=== PATIENT | male | born 1950 | race Caucasian/White ===

== ENCOUNTER → 2016-11-12 | Outpatient (CLI) | payer BC ==
[~2016-11-12] MED LIST: ALLO100T PO; BNC/4025 PO; LPT/20 PO; MELO15TA4 PO
--- NOTE | 2016-11-12 16:25 | DIAGNOSTIC IMAGING REPORT ---
CHEST 2 VIEWS ROUTINE CLINICAL HISTORY: R05 [id number] dyspnea COMPARISON STUDY: 09/28/2015 FINDINGS: Mild stable cardiomegaly. Minimal chronic atelectatic change left base. Lungs are clear. Old right clavicular fracture considered healed IMPRESSION: Chronic change. No acute process. Electronically signed by: Sergey Pierce M.D. 11/12/2016 4:23 PM Dictated Date/Time: 11/12/2016 4:22 PM
== END | disposition home or self-care (01) ==
LOC: C.RAD1850 16:12
PROVIDERS: ATTEND Allergy & Immunology Allergy
DX: R05 Cough (principal)

== ENCOUNTER → 2017-06-29 | Outpatient (CLI) | payer BC ==
[2017-06-29 10:26] LABS: BASO % 0.3 %; BASO ABS # 0.02 K/uL (0-0.2); COMPLETE YES; EOS % 2.5 %; HEMATOCRIT 43.5 % (42-52); IG% 0.5 %; LYMPH % 24.2 %; LYMPH ABS # 1.55 K/uL (1.2-3.4); MEAN CORPUSCULAR HGB CONC 32.2 g/dl (32-36); MEAN PLATELET VOLUME 9.7 fL (7.4-10.4); MONO % 9.2 %; NEUT % 63.3 %; PLATELET COUNT 173 K/uL (130-400)
[2017-06-29 10:53] LABS: ESTIMATED AVERAGE GLUCOSE 128 mg/dl; HA1C FLAG Normal (Normal)
[2017-06-29 10:57] LABS: ALT/SGPT 35 U/L (12-78); BLOOD UREA NITROGEN 18 mg/dl (7-18); BUN/CREATININE RATIO 20.7 (10-20); CALCIUM 8.6 mg/dl (8.5-10.1); CARBON DIOXIDE 27 mmol/L (21-32); CHLORIDE 107 mmol/L (98-107); CHOLESTEROL 152 mg/dl (0-200); CREATININE 0.89 mg/dl (0.60-1.40); GLUCOSE 90 mg/dl (70-99); POTASSIUM 3.6 mmol/L (3.5-5.1); SODIUM 140 mmol/L (136-145); TRIGLYCERIDES 111 mg/dl (0-150); VERY LOW DENSITY LIPOPROT CALC 22 mg/dl
[2017-06-29 11:08] LABS: ALB/GLOB RATIO 0.9 (0.9-2); ALKALINE PHOSPHATASE 80 U/L (45-117); AST/SGOT 21 U/L (15-37); CHOLESTEROL/HDL RATIO 4.1; HDL CHOLESTEROL 37 mg/dl; LDL CHOLESTEROL CALCULATED 93 mg/dl; PROSTATE SPECIFIC ANTIGEN 0.814 ng/ml (0.000-4.000)
--- NOTE | 2017-07-06 13:10 | CODING QUERY MEDICAL NECESSITY ---
CQSUPPORTING DIAGNOSIS NEEDED A supporting diagnosis is required for the test/procedure performed on this patient in order for us to be reimbursed by the patient's insurance. Please provide a supporting diagnosis for the following test/procedure listed below next to the test name along with your signature. *If there is no additional diagnosis for this patient that would support the following test/procedure please document that below next to the test/procedure. Test(s)/Procedure(s) that require a supporting diagnosis: DOS 06/29/17 PROSTATE SPECIFIC TEST (PSA) Provider Signature: Date: Thank you Mayra Maddox Health Information Management Once completed, please kindly fax back to [phone] For questions please call [phone]
== END | disposition home or self-care (01) ==
LOC: C.LAB1850 07:57
PROVIDERS: ATTEND Internal Medicine Pulmonary Disease
DX: E78.5 Hyperlipidemia, unspecified (principal); I10 Essential (primary) hypertension; R73.9 Hyperglycemia, unspecified; Z12.5 Encounter for screening for malignant neoplasm of prostate

== ENCOUNTER → 2017-08-04 | Outpatient (CLI) | payer BC | END | disposition home or self-care (01) | LOC: C.PATHSPEC 17:45 | PROVIDERS: ATTEND Dermatology | DX: C44.329 Squamous cell carcinoma of skin of other parts of face (principal); L57.0 Actinic keratosis ==

== ENCOUNTER → 2018-03-14 | Day surgery (SDC) | payer OTHER, BC ==
[2018-03-11 09:51] VITALS: BMI 45.0
[~2018-03-14] VITALS: Ht 172.7 cm; Wt 132.3 kg
[~2018-03-14] MED LIST changes: -ALLO100T PO; +ALLO300T2 PO; +FLUO5CRE TOP; +IBUP-1050 PO; +LIDOCAINE HCL 2% 2 ML VIAL (20MG/ML) ONE; -LPT/20 PO; +LPT20 PO; -MELO15TA4 PO; +OMEG120013 PO; +PROPOFOL IV EMULSION 10 MG/ML 20 ML VIAL ONE; +RANI300T2 PO; +SODIUM CHLORIDE 0.9% 500ML 500 ML IV ONE
[2018-03-14 10:57] VITALS: Ht 172.7 cm; Wt 132.3 kg
--- NOTE | 2018-03-14 11:05 | Endo History and Physical ---
History & Physical Date of Service: March 14, 2018. Chief Complaint: SCREENING Referring Physician: DR. BAKER History of Present Illness screening Past Surgical History Hx Cardiac Surgery: No Hx Internal Defibrillator: No Hx Pacemaker: No Hx Abdominal Surgery: No Hx of Implantable Prosthesis: No Hx Cancer Surgery: Yes (SKIN CANCER REMOVED X2) Hx Thoracic Surgery: No Hx Orthopedic: Yes (RIGHT RCR) Hx Urinary Tract Surgery: No Social History Smoking Status: Former Smoker Hx Substance Use: No Hx Alcohol Use: No Allergies Coded Allergies: No Known Allergies (Unverified , 03/14/18) Current Medications Reported Home Medications Medications Dose Route/Sig Max Daily Dose Days Date Category Zantac (Ranitidine HCl) 300 Mg Tab 300 Mg PO QAM 03/11/18 Reported Advil (Ibuprofen) 200 Mg Tab 200 Mg PO DIRECTED PRN 03/11/18 Reported Efudex (Fluorouracil (Topical)) 5 % Cre 1 Appln TOP HS 14 03/11/18 Reported Fish Oil ([place]-3 Fatty Acids) 1,200 Mg Cap 1 Cap PO DAILY 03/11/18 Reported Zyloprim (Allopurinol) 300 Mg Tab 1 Tab PO DAILY 30 03/11/18 Reported Benicar Hct 40/25 (Olmesartan/Hctz) 1 Ea Tab 1 Tab PO DAILY 09/28/15 Reported Lipitor (Atorvastatin Calcium) 20 Mg Tab 20 Mg PO DAILY 09/28/15 Reported Vital Signs Weight (Kilograms): 132.27 Height (Feet): 5 Height (Inches): 8 Physical Exam General Appearance: WD/WN, no apparent distress Assessment and Plan colonoscopy today
--- NOTE | 2018-03-14 11:39 | Discharge Instructions ---
Endoscopy Patient Instructions Date / Procedure(s) Performed March 14, 2018. Colonoscopy Allergy Information Coded Allergies: No Known Allergies (Unverified , 03/14/18) Discharge Date / Findings March 14, 2018. diverticulosis Medication Instructions Restart Stopped Medication(s): OK to resume home medications as above Provider Instructions Activity Restrictions - No exercising or heavy lifting for 24 hours. - Do not drink alcohol the day of the procedure. - Do not drive a car or operate machinery until the day after the procedure. - Do not make any important decisions or sign important papers in 24 hours after the procedure. Following Day: - Return to full activity which may include returning to work/school. Diet Start your diet with liquids and light foods (jello, soup, juice, toast). Then eat your usual diet if not nauseated. Treatment For Common After Affects For mild abdominal pain, bloating, or excessive gas: - Rest - Eat lightly - Lie on right side Follow-Up Information Follow-up with DR. BAKER as scheduled Anesthesia Information What You Should Know You have had a procedure that required some medicine to reduce anxiety and discomfort. This treatment is called moderate sedation. After receiving the treatment, you may be sleepy, but you will be able to breathe on your own. The effects of the treatment may last for several hours. Follow these instructions along with Activity/Diet recommendations noted above: * Do NOT do anything where dizziness or clumsiness would be dangerous. * Rest quietly at home today, then you can be up and about tomorrow. * Have a responsible person stay with you the rest of today. * You may have had an I.V. today. If so, you may take the dressing off later today. Recommendations Call your doctor if: * Trouble breathing * Continuous vomiting for more than 24 hours * Temperature above 101 degrees * Severe abdominal pain or bloating * Pain not relieved by pain medicine ordered * There is increased drainage or redness from any incision * A large amount of rectal bleeding greater than 2-3 tablespoons. (If you had a polyp/s removed or have hemorrhoids, a small amount of blood - from the rectum is to be expected.) * You have any unanswered questions or concerns. IN THE EVENT OF A SERIOUS EMERGENCY, GO TO THE NEAREST EMERGENCY ROOM Your discharge instructions were prepared by provider Gissel Cox. Patient Instructions Signature Page Kehinde Wood Patient (or Guardian) Signature/Date: I have read and understand the instructions given to me by my caregivers. Caregiver/RN/Doctor Signature/Date: The above-named patient and/or guardian has received patient instructions on this date. + Original Patient Signature Page (only) stays with chart. Please make copy for patient.
[2018-03-14 12:10] VITALS: BP 171/92; PULSE 67; O2SAT 96
--- NOTE | 2018-03-14 12:17 | Anesthesiology Progress Note ---
Anesthesia Post Op Note Date & Time March 14, 2018 at 12:17 Vital Signs Pain Intensity: 0 Vital Signs Past 12 Hours Date Time Temp Pulse Resp B/P (MAP) Pulse Ox O2 Delivery O2 Flow Rate FiO2 03/14/18 12:10 67 24 171/92 (118) 96 Room Air 03/14/18 11:55 71 24 172/96 (121) 97 Room Air 03/14/18 11:40 72 24 179/86 (117) 96 Room Air 03/14/18 11:03 36.7 83 20 162/90 (114) 93 Room Air Notes Mental Status: alert / awake / arousable, participated in evaluation Pt Amnestic to Procedure: Yes Nausea / Vomiting: adequately controlled Pain: adequately controlled Airway Patency, RR, SpO2: stable & adequate BP & HR: stable & adequate Hydration State: stable & adequate Anesthetic Complications: no major complications apparent
--- NOTE | 2018-03-14 15:46 | GI REPORT ---
Patient Name: Kehinde Wood Procedure Date: 03/14/2018 11:17 AM Date of : 1950 Admit Type: Outpatient Age: 67 Gender: Male Attending MD: Gissel Cox DO Procedure: Colonoscopy Providers: Gissel Cox DO Referring MD: Naren Lucas John Solic Indications: Screening for colorectal malignant neoplasm Medicines: Propofol per Anesthesia Complications: No immediate complications. Estimated blood loss: None. Estimated Blood Loss: Estimated blood loss: none. Procedure: Pre-Anesthesia Assessment: - Prior to the procedure, a History and Physical was performed, and patient medications, allergies and sensitivities were reviewed. The patient's tolerance of previous anesthesia was reviewed. - The risks and benefits of the procedure and the sedation options and risks were discussed with the patient. All questions were answered and informed consent was obtained. - Patient identification and proposed procedure were verified prior to the procedure by the physician and the nurse. The procedure was verified in the pre-procedure area in the procedure room. - Mental Status Examination: alert and oriented. Airway Examination: normal oropharyngeal airway and neck mobility. Respiratory Examination: clear to auscultation. CV Examination: normal. Abdominal Examination: bowel sounds present, abdomen soft and non-tender, no masses or organomegaly noted. - ASA Grade Assessment: III - A patient with severe systemic disease. After I obtained informed consent, the scope was passed under direct vision. Throughout the procedure, the patient's blood pressure, pulse, and oxygen saturations were monitored continuously. The scope was introduced through the anus and advanced to the cecum, identified by appendiceal orifice and ileocecal valve. The colonoscopy was performed without difficulty. The patient tolerated the procedure well. The quality of the bowel preparation was good. Findings: The perianal and digital rectal examinations were normal. Pertinent negatives include normal sphincter tone and no palpable rectal lesions. Multiple small and large-mouthed diverticula were found in the sigmoid colon. The retroflexed view of the distal rectum and anal verge was normal and showed no anal or rectal abnormalities. Impression: - Diverticulosis in the sigmoid colon. - The distal rectum and anal verge are normal on retroflexion view. - No specimens collected. Recommendation: - Repeat colonoscopy in 10 years for screening purposes. - Return to referring physician as previously scheduled. - Discharge patient to home. Bill Estevez DO 03/14/2018 11:42:03 AM This report has been signed electronically. Note Initiated On: 03/14/2018 11:17 AM Number of Addenda: 0 I attest to the content of the Intraoperative Record and orders documented therein, exceptions below {[id number]}
== END | disposition home or self-care (01) ==
LOC: C.GI 10:34
PROVIDERS: ATTEND Internal Medicine
DX: Z12.11 Encounter for screening for malignant neoplasm of colon (principal); K57.30 Diverticulosis of large intestine without perforation or abscess without bleeding; Z87.891 Personal history of nicotine dependence; I10 Essential (primary) hypertension; K21.9 Gastro-esophageal reflux disease without esophagitis; E66.9 Obesity, unspecified

== ENCOUNTER 2020-12-20 20:56 | Inpatient (IN) ==
[2020-12-20] MEDS ORDERED: fentaNYL citrate 100 MCG/2 ML VIAL IV PRN (21:06)
[2020-12-20] MEDS ORDERED: PANTOprazole 40 MG in SYRINGE 0 ML IV ONE (21:06)
[2020-12-20] MEDS ORDERED: ONDANSETRON INJ 2 MG/ML 2 ML VIAL IV STA (21:06)
--- NOTE | 2020-12-20 21:21 | Emergency Department Note ---
Impression & Plan Acute pancreatitis, Abdominal pain, epigastric ED Provider Note NAME: MELLISA MORSE AGE: 70 SEX: M : 1950 ARRIVES VIA: Walk-In INFORMANT: Patient, ED PROVIDER(S): Mark Orozco DO CHIEF COMPLAINT: Chest pain HPI: The patient is a 70-year-old male who presented to the emergency department for an evaluation of chest pain. The patient describes chest pain which is in the lower chest in the epigastric region. He states that this pain began after eating this evening. He denies having any fevers or chills. He denies having any difficulty breathing or cough. He has had no exposure to COVID-19 as far as he knows. The pain has been constant since onset 1 hour ago. The patient states that he was at home when this occurred. The patient states the pain is been constant. The pain does not radiate to the back. The patient denies having any vomiting but does complain of nausea. The patient did not have any alcohol this evening. ROS: See above HPI for pertinent positives & negatives. A total of 10 systems reviewed and were otherwise negative. PAST MEDICAL HISTORY: See Below PAST SURGICAL HISTORY: See Below FAMILY HISTORY: See Below SOCIAL HISTORY: See Below HOME MEDICATIONS: See Below ALLERGIES: See Below VITALS: See Below PHYSICAL EXAMINATION: GENERAL: The patient is awake and alert. He appears somewhat uncomfortable. EYES: The conjunctivae are clear. The pupils are round and reactive. EARS, NOSE, MOUTH AND THROAT: The nose is without any evidence of any deformity. Mucous membranes are moist. Tongue is midline. NECK: The neck is nontender and supple. RESPIRATORY: Normal respiratory effort is noted there is no evidence of wheezing rhonchi or rales CARDIOVASCULAR: Regular rate and rhythm noted there no murmurs rubs or gallops normal S1 normal S2. GASTROINTESTINAL: The abdomen is mildly distended but soft. There is significant epigastric and right upper quadrant tenderness to palpation. MUSCULOSKELETAL/EXTREMITIES: There is no evidence of gross deformity full range of motion is noted in the hips and shoulders. SKIN: There is no obvious evidence of any rash. Trace pedal edema was noted bilaterally. NEUROLOGIC: Patient is awake alert and oriented x3. MEDICAL DECISION MAKING: The patient is a 70-year-old male who presented to the emergency department because of epigastric pain. The patient describes epigastric pain which was nonradiating. Initially he was concerned that this could be related to his heart as he has a history of coronary artery disease and stents. The patient's EKG shows no acute change from previous and his troponin was negative. The patient was found to have abdominal pain on physical exam. CT the abdomen and pelvis appears to be consistent with pancreatitis. His lipase was also elevated. He was treated with IV fluids IV pain medication IV antiemetics and IV proton pump inhibitors. He was feeling much better on subsequent reevaluation. [facility] the [facility] to evaluate the patient in the emergency d epartment for further management and disposition. Triage Nursing notes reviewed. Prior medical records reviewed Vital Signs: reviewed and remarkable for elevated blood pressure. Differential diagnosis: Appendicitis, testicular torsion, infections, diverticulitis, UTI, obstruction, mesenteric ischemia, aortic pathology, inflammatory bowel disease, renal colic, PUD, pancreatitis, biliary pathology, hernia, volvulus, constipation, as well as other pathologies. ER treatment provided: See below Diagnostics interpreted by me: ECG: EKG was obtained in the emergency department. My interpretation is normal sinus rhythm at 63 bpm. There was no ectopy. There is no acute ST segment abnormalities noted. This was compared to a tracing from September 282014. No significant changes were noted. Cardiac Monitoring: An order was placed for continuous cardiac monitoring. The monitor shows a rate of 92 bpm with sinus rhythm. Laboratory studies: As stated above and show below. Imaging studies: See below Consultation(s): 2870: I discussed this case with Dr. Musa who is [facility]. 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 Feels Safe at Home: Yes Allergies Allergies Allergy/AdvReac Type Severity Reaction Status Date / Time No Known Allergies Allergy U Unverified 12/20/20 21:33 Home Meds Home Medications Medication Instructions Recorded Confirmed ibuprofen 200 mg PO Q6H PRN #0 tab 03/11/18 12/20/20 ranitidine HCl [Zantac] 300 mg PO QAM #0 tab 03/11/18 12/20/20 allopurinol 300 mg PO PM 05/24/19 12/20/20 amlodipine 10 mg PO QAM 05/24/19 12/20/20 atorvastatin 80 mg PO PM 05/24/19 12/20/20 clopidogrel 75 mg PO QAM 05/24/19 12/20/20 fluticasone propionate 2 spray INTRANASAL QAM 05/24/19 12/20/20 losartan 100 mg PO QAM 05/24/19 12/20/20 metoprolol tartrate 25 mg PO BID 05/24/19 12/20/20 omega 2-fon-jck-fish oil [[place]-3] 1 cap PO QAM 05/24/19 12/20/20 pantoprazole 40 mg PO QAM 05/24/19 12/20/20 aspirin [Aspirin Low-Strength] 81 mg PO DAILY 12/20/20 12/20/20 ezetimibe 10 mg PO DAILY 12/20/20 12/20/20 furosemide 40 mg PO DAILY 12/20/20 12/20/20 metformin 500 mg PO BID 12/20/20 12/20/20 Results & Data (ED) Vital Signs Vital Signs - 24 hr 12/20/20 20:57 12/20/20 21:18 12/20/20 21:30 Temperature 35.9 C L Temperature Source Temporal Artery Scan Pulse Rate 68 Pulse Rate [Right Finger] 65 Respiratory Rate 22 20 Respiratory Depth Normal Blood Pressure 182/77 H Blood Pressure [Right Arm] 148/79 H Blood Pressure Mean 112 Blood Pressure Mean [Right Arm] 102 Pulse Oximetry 96 98 97 Oxygen Delivery Method Room Air Room Air Room Air Sepsis Recent Fever Within 48 Hours No Sepsis New/Unexplained Change in Mental Status N/A Sepsis Action Taken by Nursing No Action Required Home Medications Current Medication List: was personally reviewed by me Laboratory Data Attestation: I reviewed the patient's lab results. Result diagrams: 12/20/20 21:28 02/12/21 21:28 Lab Results 12/20/20 12/20/20 12/20/20 Range/Units 21:28 21:28 21:28 WBC 8.78 (4.8-10.8) K/uL RBC 4.33 L (4.7-6.1) M/uL Hgb 12.7 L (14.0-18.0) g/dL Hct 38.1 L (42-52) % MCV 88.0 (80-100) fL MCH 29.3 (25-34) pg MCHC 33.3 (32-36) g/dL RDW Std Deviation 46.4 H (36.4-46.3) fL RDW Coeff of Hasmukh 14.4 (11.5-14.5) % Plt Count 162 (130-400) K/uL MPV 9.2 (7.4-10.4) fL Immature Gran % (Auto) 0.2 % Neut % (Auto) 68.4 % Lymph % (Auto) 20.3 % [place] % (Auto) 8.3 % Eos % (Auto) 2.6 % Baso % (Auto) 0.2 % Neut # (Auto) 6.00 (1.4-6.5) K/uL Lymph # (Auto) 1.78 (1.2-3.4) K/uL [place] # (Auto) 0.73 H (0.11-0.59) K/uL Eos # (Auto) 0.23 (0-0.5) K/uL Baso # (Auto) 0.02 (0-0.2) K/uL Immature Gran # (Auto) 0.02 (0.00-0.02) K/uL PT 10.9 (9.0-12.0) Seconds INR 1.1 (0.9-1.1) APTT 25.7 (21.0-31.0) Seconds PTT Ratio 1.0 Sodium 143 (136-145) mmol/L Potassium 4.1 (3.5-5.1) mmol/L Chloride 110 H (98-107) mmol/L Carbon Dioxide 26 (21-32) mmol/L Anion Gap 7.0 (3-11) BUN 23 H (7-18) mg/dl Creatinine 1.15 (0.6-1.4) mg/dl Est Cr Clr Drug Dosing 79.2 ml/min Est GFR ( Amer) 74.8 Est GFR (Non-Af Amer) 64.6 BUN/Creatinine Ratio 20.1 H (10-20) Glucose 124 H (70-99) mg/dl Calcium 8.8 (8.5-10.1) mg/dl Total Bilirubin 0.6 (0.2-1) mg/dl AST 59 H (15-37) U/L ALT 69 (12-78) U/L Alkaline Phosphatase 105 (45-117) U/L Troponin I < 0.015 (0-0.045) ng/ml Total Protein 7.1 (6.4-8.2) gm/dl Albumin 3.4 (3.4-5.0) gm/dl Globulin 3.7 (2.5-4.0) gm/dl Albumin/Globulin Ratio 0.9 (0.9-2) Lipase 98943 H (73-393) U/L Administered Medications Fentanyl Citrate (Fentanyl Citrate 100 Mcg/2 Ml Vial) 50 mcg IV Q15M PRN PRN Reason: Pain Stop: 01/03/21 21:05 Last Admin: 12/20/20 21:29 Dose: 50 mcg Documented by: [id number] Discontinued Medications Pantoprazole Sodium 40 mg/ (Syringe) 10 mls @ 5 mls/min IV NOW ONE Stop: 12/20/20 21:07 Last Admin: 12/20/20 21:35 Dose: 5 mls/min Documented by: [id number] Ondansetron HCl (Ondansetron Inj 2 Mg/Ml 2 Ml Vial) 4 mg IV NOW STA Stop: 12/20/20 21:07 Last Admin: 12/20/20 21:29 Dose: 4 mg Documented by: [id number] Imaging Data Radiologist's Impression: [facility] Patient: MELLISA MORSE (Male) : 52 Status: ER Date: 12/20/20 21:58 Room #: History: mid upper abd pain Slices: [id number] Priors: Tech: Mustapha Gauthier @ [phone] Exams: CT ABDOMEN & PELVIS With Contrast Contrast: IV Amt: 90 Accession Numbers: [id number] Preliminary Findings Only See Final Report For Complete Findings CT ABDOMEN & PELVIS With Contrast: 7 mm right basilar subpleural nodule. Mild bibasilar subpleural interstitial opacities which may be fibrosis. Fatty liver. Several hepatic hypodensities which may be cysts. Hypodense appearance of the pancreas which may be mildly edematous. Correlate clinically for acute pancreatitis. No dilatation of the main pancreatic duct. No peripancreatic fluid or stranding. Bilateral renal cysts. No renal or ureteral calculus. No significant hydr onephrosis. Gallbladder is mildly distended with subtle adjacent stranding but no calcified gallstones are identified. Consider correlation with ultrasound and/or HIDA scan to assess for underlying cholecystitis. No dilated bowel. Unremarkable appendix. Colonic diverticulosis. No definite CT evidence for diverticulitis. Mildly prominent prostate gland with coarse central calcifications. Fat-containing periumbilical ventral abdominal wall hernia. Radiologist: Prashant Waite M.D. Study ready at 22:01 and initial results transmitted at 22:20 Blood Pressure Blood Pressure Findings: Elevated blood pressure Blood Pressure Disposition: further management by hospitalist Discharge Plan Visit Data Chief Complaint: Chest Pain Stated Complaint: CHEST PAIN ED Provider: Mark Orozco Discharge Problem: Acute pancreatitis, Abdominal pain, epigastric Patient Disposition: Being Evaluated by Hospitalist Condition: Good Forms Stand Alone Forms: [employer] [facility] [employer] Prescriptions Prescriptions: No Action ranitidine HCl [Zantac] 300 mg Tablet 300 mg PO QAM Qty: 0 RF: 0 ibuprofen 200 mg Tablet 200 mg PO Q6H PRN (Reason: Pain) Qty: 0 RF: 0 atorvastatin 80 mg tablet 80 mg PO PM RF: 0 clopidogrel 75 mg tablet 75 mg PO QAM RF: 0 amlodipine 10 mg tablet 10 mg PO QAM RF: 0 pantoprazole 40 mg tablet,delayed release (DR/EC) 40 mg PO QAM RF: 0 losartan 100 mg tablet 100 mg PO QAM RF: 0 fluticasone propionate 50 mcg/actuation spray,suspension 2 spray intranasal QAM RF: 0 metoprolol tartrate 25 mg tablet 25 mg PO BID RF: 0 [place]-3 350 mg-235 mg- 90 mg-597 mg Capsule,Delayed Release(Dr/Ec) 1 cap PO QAM RF: 0 allopurinol 300 mg tablet 300 mg PO PM RF: 0 furosemide 40 mg tablet 40 mg PO DAILY RF: 0 aspirin [Aspirin Low-Strength] 81 mg Tablet,Delayed Release (Dr/Ec) 81 mg PO DAILY RF: 0 metformin 500 mg tablet extended release 24 hr 500 mg PO BID RF: 0 ezetimibe 10 mg tablet 10 mg PO DAILY RF: 0 Referrals Referrals: Russ Crane MD [Primary Care Provider] - Discharge Problem: Acute pancreatitis Qualifiers: Pancreatitis type: unspecified pancreatitis type Acute pancreatitis complicati on: unspecified Qualified Code(s): K85.90 - Acute pancreatitis without necrosis or infection, unspecified
[2020-12-20 21:56] LABS: Basophils # (auto) 0.02 K/uL (0-0.2); Basophils % (auto) 0.2 %; Eosinophils # (auto) 0.23 K/uL (0-0.5); Eosinophils % (auto) 2.6 %; Hematocrit (blood only) 38.1 % (42-52); Hemoglobin 12.7 g/dL (14.0-18.0); Immature Granulocytes # (auto) 0.02 K/uL (0.00-0.02); Immature Granulocytes % (auto) 0.2 %; Lymphocytes # (auto) 1.78 K/uL (1.2-3.4); Lymphocytes % (auto) 20.3 %; Mean Corpuscular Hemoglobin 29.3 pg (25-34); Mean Corpuscular Hgb Conc 33.3 g/dL (32-36); Mean Platelet Volume 9.2 fL (7.4-10.4); Monocytes # (auto) 0.73 K/uL (0.11-0.59); Monocytes % (auto) 8.3 %; Neutrophils % (auto) 68.4 %; Platelet Count 162 K/uL (130-400); RDW Coefficient of Variation 14.4 % (11.5-14.5); RDW Standard Deviation 46.4 fL (36.4-46.3); Red Blood Count 4.33 M/uL (4.7-6.1); White Blood Count 8.78 K/uL (4.8-10.8)
[2020-12-20 22:08] LABS: INR 1.1 (0.9-1.1); Partial Thromboplastin Time 25.7 Seconds (21.0-31.0); Prothrombin Time 10.9 Seconds (9.0-12.0)
[2020-12-20 22:12] LABS: Alanine Aminotransferase 69 U/L (12-78); Albumin Level 3.4 gm/dl (3.4-5.0); Aspartate Aminotransferase 59 U/L (15-37); BUN Creatinine Ratio 20.1 (10-20); Blood Urea Nitrogen 23 mg/dl (7-18); Calcium 8.8 mg/dl (8.5-10.1); Carbon Dioxide 26 mmol/L (21-32); Chloride 110 mmol/L (98-107); Creatinine Clr Calc Pharmacy 79.2 ml/min; Est GFR (African American) 74.8; Est GFR (Non-African American) 64.6; Glucose 124 mg/dl (70-99); Potassium 4.1 mmol/L (3.5-5.1); Sodium 143 mmol/L (136-145)
[2020-12-20 22:17] LABS: Albumin Globulin Ratio 0.9 (0.9-2); Alkaline Phosphatase 105 U/L (45-117); Bilirubin,Total 0.6 mg/dl (0.2-1); Globulin 3.7 gm/dl (2.5-4.0); Lipase 12214 U/L (73-393); Total Protein 7.1 gm/dl (6.4-8.2); Troponin I < 0.015 ng/ml (0-0.045)
[2020-12-20] MEDS ORDERED: METOPROLOL TARTRATE 25 MG TAB PO STA (22:49)
[2020-12-20] MEDS ORDERED: LACTATED RINGER'S 1,000 ML IV STA (22:59)
[2020-12-20 23:01] LABS: Magnesium 2.1 mg/dl (1.8-2.4)
--- NOTE | 2020-12-20 23:44 | History & Physical Report ---
Date of Service December 20, 2020 Assessment & Plan (1) Acute pancreatitis: Possible biliary etiology Hypertensive urgency secondary to above hx CAD status post stent (12/2018) hyperlipidemia on statin Rx DM2 on oral medications, well-controlled as of recent outpatient hemoglobin A1c was 6.13 October 2020 Acute on chronic anemia, hemoglobin drop from baseline, stool FOBT negative AIDEN on CPAP chronic tremors past tobacco abuse Medical telemetry given uncontrolled blood pressure IVF, bowel rest Analgesia, anxiolytic, facilitate home BP meds Gallbladder ultrasound GI consult pancreatitis Further management pending gallbladder ultrasound results Hold Plavix for now RE possible procedural intervention Anemia work-up, transfuse PRBC if hemoglobin less than 8 and or for symptomatic anemia ISS BG goal [id number] DVT prophylaxis. SCDs RE possible procedural intervention Full code Patient's requesting updates from providers. Ms. Chrissy Wood, contact #[phone]. Text document was generated using [employer]om[employer] voice recognition software. It may contain grammatical or spelling errors. Kindly contact undersigned for clarification of any documentation item in question. History of Present Illness Chief Complaint: Abdominal pain Primary Care Provider: Russ Crane MD History obtained from patient, family, and records. Medical history significant for CAD status post stent (12/2018), hypertension, hyperlipidemia, DM2 on oral medications, chronic anemia (baseline hemoglobin 13), AIDEN on CPAP, chronic tremors, past tobacco abuse. Patient experienced achy epigastric pain going to his chest with some shortness of breath after a heavy dinner tonight. No fever, some chills. No black/bloody stools. No prior episodes as per patient. No recent EtOH intake. Patient brought to the ER for evaluation. Initial SBP in the ER 180s. 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 Allergies Allergy/AdvReac Type Severity Reaction Status Date / Time No Known Allergies Allergy U Unverified 12/20/20 21:33 Home Medications Medication Instructions Recorded Confirmed Type ibuprofen 200 mg PO Q6H PRN #0 tab 03/11/18 12/20/20 History allopurinol 300 mg PO PM 05/24/19 12/20/20 History amlodipine 10 mg PO QAM 05/24/19 12/20/20 History atorvastatin 80 mg PO PM 05/24/19 12/20/20 History clopidogrel 75 mg PO QAM 05/24/19 12/20/20 History fluticasone propionate 2 spray INTRANASAL QAM 05/24/19 12/20/20 History losartan 100 mg PO QAM 05/24/19 12/20/20 History omega 9-[id number]-[id number]-fish oil [[place]-3] 1 cap PO QAM 05/24/19 12/20/20 History pantoprazole 40 mg PO QAM 05/24/19 12/20/20 History aspirin [Aspirin Low-Strength] 81 mg PO DAILY 12/20/20 12/20/20 History ezetimibe 10 mg PO DAILY 12/20/20 12/20/20 History furosemide 40 mg PO DAILY 12/20/20 12/20/20 History metformin 500 mg PO BID 12/20/20 12/20/20 History propranolol 40 mg PO BID 12/21/20 12/21/20 History Past Med/Surg History Medical History (Updated 12/20/20 @ 22:39 by Mark Orozco DO) GERD (gastroesophageal reflux disease) Hyperlipidemia Hypertension Obstructive sleep apnea on CPAP Squamous cell carcinoma Surgical History S/P coronary artery stent placement x's 3 Social History Smoking Status: Never smoker Second Hand Exposure: No; Do You Dip or Chew Tobacco: No; Tobacco Cessation Education Requested by Patient: No Hx Alcohol Use: No Hx Substance Use: No Preferred Language: Sami Swimming Instructor Required: No Beliefs That Will Affect Care: None Current Living Situation: Spouse and Family 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 occupation: Drop [employer] Other Information That Helps Us Care for You: No Feels Safe at Home: Yes Safety Concerns: Feels Safe At This Time Assistive Devices: CPAP and Hearing Aid - Bilateral Review of Systems Review of Systems: As per HPI, all 10 systems reviewed, all other ROS negative Physical Exam Physical Exam: GENERAL: Comfortable, pleasant, morbidly obese, looks younger for stated age, no respiratory distress SKIN: N pallor, cool HEENT: Alopecia, pale palpebral conjunctivae, no ptosis, dry buccal mucosa NECK : Supple, short neck, no tenderness CHEST : CTA, no tenderness HEART : RRR, no obvious murmurs ABDOMEN: Some distention, minimal epigastric tenderness RECTAL : Intact sphincter, yellow stool (FOBT negative) EXTREMITIES : Minimal LE swelling, no LE tenderness, no other conspicuous deformities noted NEUROLOGIC : Coherent, no facial asymmetry, no other gross focality Results & Data Results & Data ([facility]) Vital Signs (Past 12 Hours) Vital Signs Temp Pulse Pulse Resp BP BP Pulse Ox 12/20/20 23:00 66 24 145/76 H 96 12/20/20 21:30 65 20 148/79 H 97 12/20/20 21:18 98 12/20/20 20:57 35.9 C L 68 22 182/77 H 96 Laboratory Results Laboratory Results WBC 8.78 K/uL (4.8-10.8) 12/20/20 21: RBC 4.33 M/uL (4.7-6.1) L 12/20/20 21: Hgb 12.7 g/dL (14.0-18.0) L 12/20/20 21: Hct 38.1 % (42-52) L 12/20/20 21: MCV 88.0 fL (80-100) 12/20/20 21: MCH 29.3 pg (25-34) 12/20/20 21: MCHC 33.3 g/dL (32-36) 12/20/20: RDW Std Deviation 46.4 fL (36.4-46.3) H 12/20/20 21: RDW Coeff of Hasmukh 14.4 % (11.5-14.5) 12/20/20 21: Plt Count 162 K/uL (130-400) 12/20/20 21: MPV 9.2 fL (7.4-10.4) 12/20/20 21: Immature Gran % (Auto) 0.2 % 12/20/20 21: Neut % (Auto) 68.4 % 12/20/20 21: Lymph % (Auto) 20.3 % 12/20/20 21: Hayes % (Auto) 8.3 % 12/20/20 21: Eos % (Auto) 2.6 % 12/20/20 21: Baso % (Auto) 0.2 % 12/20/20: Neut # (Auto) 6.00 K/uL (1.4-6.5) 12/20/20 21: Lymph # (Auto) 1.78 K/uL (1.2-3.4) 12/20/20: Hayes # (Auto) 0.73 K/uL (0.11-0.59) H 12/20/20 21: Eos # (Auto) 0.23 K/uL (0-0.5) 12/20/20: Baso # (Auto) 0.02 K/uL (0-0.2) 12/20/20: Immature Gran # (Auto) 0.02 K/uL (0.00-0.02) 12/20/20: PT 10.9 Seconds (9.0-12.0) 12/20/20: INR 1.1 (0.9-1.1) 12/20/20: APTT 25.7 Seconds (21.0-31.0) 12/20/20: PTT Ratio 1.0 12/20/20: Sodium 143 mmol/L (136-145) 12/20/20: Potassium 4.1 mmol/L (3.5-5.1) 12/20/20: Chloride 110 mmol/L (98-107) H 12/20/20: Carbon Dioxide 26 mmol/L (21-32) 12/20/20: Anion Gap 7.0 (3-11) 12/20/20: BUN 23 mg/dl (7-18) H 12/20/20: Creatinine 1.15 mg/dl (0.6-1.4) 12/20/20: Est Cr Clr Drug Dosing 79.2 ml/min 12/20/20: Est GFR ( Amer) 74.8 12/20/20 21: Est GFR (Non-Af Amer) 64.6 12/20/20: BUN/Creatinine Ratio 20.1 (10-20) H 12/20/20 21: Glucose 124 mg/dl (70-99) H 12/20/20: Calcium 8.8 mg/dl (8.5-10.1) 02/12/21 21:28 Magnesium 2.1 mg/dl (1.8-2.4) 12/20/20 21:28 Total Bilirubin 0.6 mg/dl (0.2-1) 12/20/20 21:28 AST 59 U/L (15-37) H 12/20/20 21:28 ALT 69 U/L (12-78) 12/20/20 21:28 Alkaline Phosphatase 105 U/L (45-117) 12/20/20 21:28 Troponin I < 0.015 ng/ml (0-0.045) 12/20/20 21:28 Total Protein 7.1 gm/dl (6.4-8.2) 12/20/20 21: Albumin 3.4 gm/dl (3.4-5.0) 12/20/20: Globulin 3.7 gm/dl (2.5-4.0) 12/20/20 21: Albumin/Globulin Ratio 0.9 (0.9-2) 12/20/20 21: Lipase 24191 U/L (73-393) H 12/20/20 21: TSH 4.600 uIu/ml (0.300-4.500) H 12/20/20 21:28 COVID-19 Eval Order Covid19 [facility]Now [facility] 12/20/20 22:36 SARS-CoV-2, RNA, NAAT NEGATIVE (NEGATIVE) 12/20/20 22:[address] abdomen pelvis initial read: 7 mm right basilar subpleural nodule. Subpleural fibrosis. Fatty liver. Hepatic hypodensities possible cysts. Mildly edematous pancreas. Correlate for acute pancreatitis. No dilatation of main pancreatic duct. Gallbladder distended with subtle adjacent stranding but no calcified gallstones are identified. Consider correlation with ultrasound or HIDA scan to assess for underlying cholecystitis. No dilated bowel. Colonic diverticulosis. Prominent prostate gland. Fat-containing periumbilical ventral abdominal wall hernia. Chest x-ray as per my interpretation atelectasis EKG as per my interpretation : Rate 65, NSR, normal axis, no ischemia (1) Acute pancreatitis Acute pancreatitis complication: unspecified Pancreatitis type: unspecified pancreatitis type Qualified Code(s): K85.90 - Acute pancreatitis without necrosis or infection, unspecified
[2020-12-21] MEDS ORDERED: MoRPHine SULFATE 4 MG/ML 1 ML CARP\\VIAL IV PRN (01:11)
[2020-12-21] MEDS ORDERED: LORazepam 0.25 MG/0.5 ML VIAL IV PRN (01:11)
[2020-12-21] MEDS ORDERED: DEXTROSE 50% 50 ML SYRINGE IV PRN (01:11)
[2020-12-21] MEDS ORDERED: CARBOHYDRATES FOR HYPOGLYCEMIA PO PRN (01:11)
[2020-12-21] MEDS ORDERED: GLUCOSE 10 TABS/TUBE PO PRN (01:11)
[2020-12-21] MEDS ORDERED: GLUCAGON FOR INJ 1 MG VIAL SQ PRN (01:11)
[2020-12-21] MEDS ORDERED: GLUCOSE 40% GEL 15 GM TUBE PO PRN (01:11)
[2020-12-21] MEDS ORDERED: traMADol HCL 50 MG TABLET PO PRN (01:11)
[2020-12-21] MEDS ORDERED: PROMETHAZINE HCL 12.5 MG in SODIUM CHLORIDE 0.9% 50 ML IV PRN (01:11)
[2020-12-21] MEDS: INSULIN ASPART 100 UNITS/ML 3 ML PEN SC SCH ×4 (01:46→17:25)
[2020-12-21] MEDS: LOSARTAN POTASSIUM 50 MG TAB PO SCH (01:46)
[2020-12-21] MEDS: LACTATED RINGER'S 1,000 ML IV SCH ×3 (01:50→15:12)
[2020-12-21 02:12] LABS: Reticulocyte % 1.4 % (0.5-2.0); Reticulocytes # 0.06 10^6/uL (0.02-0.10)
[2020-12-21 05:56] LABS: Eosinophils # (auto) 0.05 K/uL (0-0.5); Eosinophils % (auto) 0.5 %; Hematocrit (blood only) 39.6 % (42-52); Hemoglobin 13.2 g/dL (14.0-18.0); Immature Granulocytes # (auto) 0.02 K/uL (0.00-0.02); Immature Granulocytes % (auto) 0.2 %; Lymphocytes # (auto) 0.49 K/uL (1.2-3.4); Lymphocytes % (auto) 4.6 %; Mean Corpuscular Hemoglobin 29.3 pg (25-34); Mean Corpuscular Hgb Conc 33.3 g/dL (32-36); Mean Corpuscular Volume 87.8 fL (80-100); Mean Platelet Volume 9.7 fL (7.4-10.4); Monocytes % (auto) 7.6 %; Neutrophils % (auto) 87.1 %; Platelet Count 167 K/uL (130-400); RDW Coefficient of Variation 14.6 % (11.5-14.5); RDW Standard Deviation 46.9 fL (36.4-46.3); Red Blood Count 4.51 M/uL (4.7-6.1); White Blood Count 10.56 K/uL (4.8-10.8)
[2020-12-21 06:22] LABS: Albumin Level 3.4 gm/dl (3.4-5.0); BUN Creatinine Ratio 17.8 (10-20); Calcium 8.9 mg/dl (8.5-10.1); Est GFR (African American) 73.3; Est GFR (Non-African American) 63.2; Potassium 3.7 mmol/L (3.5-5.1)
[2020-12-21 06:27] LABS: Albumin Globulin Ratio 0.9 (0.9-2); Bilirubin,Total 1.6 mg/dl (0.2-1); Ferritin 947.7 ng/ml (8-388); Total Protein 7.4 gm/dl (6.4-8.2)
[2020-12-21] MEDS ORDERED: PIPERACILL/TAZOBAC CONSULT ACTIVE PRN (06:41)
--- NOTE | 2020-12-21 06:44 | Communication Note ---
Date of Service: December 21, 2020 Abnormal LFTs and elevated procalcitonin noted in a.m. lab work. Gallbladder ultrasound initial read: Hepatomegaly likely fatty infiltration with probable focal sparing near gallbladder. Left hepatic cyst. Mild gallbladder wall thickening measuring 3 mm with sludge. No definite gallstones identified. Sonographic Rivas sign could not be accurately assess as patient given pain medications prior to exam. CBD 3 mm. Pancreas obscured by bowel gas. AP Possible cholecystitis, possible sepsis given elevated procalcitonin Rule out CBD stone with abnormal LFTs Cultures, check lactic acid, Zosyn General surgery consult Re: Possible cholecystitis MRCP Re: Abnormal LFTs Await GI recommendations.
[2020-12-21] MEDS ORDERED: PIPERACILLIN/TAZOBACTAM 4.5 GM in DEXTROSE 5% 100 ML IV ONE (07:00)
[2020-12-21 07:01] LABS: Folate (Folic Acid) 13.5 ng/ml (>5.38)
--- NOTE | 2020-12-21 07:28 | CT Scan Report ---
CT abd pelvis IV con only CLINICAL HISTORY: Upper abdominal pain. COMPARISON STUDY: None. TECHNIQUE: The patient was scanned in a dynamic helical fashion during intravenous administration of 90 cc of Optiray 320. A dose lowering technique was utilized adhering to the principles of ALARA. CT DOSE: 1056.70 mGycm FINDINGS: Lower chest: There is basilar interstitial thickening and atelectatic change. There is a 7 mm right l ower lobe subpleural pulmonary nodule. Liver: There is hepatic steatosis. There is 21 mm left lobe hypodensity. This approaches water attenu ation likely represents a cyst. There is a 12 mm right lobe hypodensity, also likely representing a c yst. Gallbladder: There is very subtle infiltration of pericholecystic fat. No stones are visualized. Spleen: Normal in size and attenuation. Pancreas: There is equivocal minimal pancreatic edema. Correlation with biochemical markers is recomm ended to exclude pancreatitis. Adrenal glands: Unremarkable. Kidneys: There are bilateral hypodense renal lesions statistically representing cysts. There is no hy dronephrosis. Bowel: There are no transition zones indicate bowel obstruction. There is colonic diverticulosis. The re is no evidence of acute diverticulitis. The appendix appears normal. Peritoneum: There is no intraperitoneal free air or abdominal ascites. There is a fat-containing umbi lical hernia Vasculature: The abdominal aorta is normal in course and caliber. Adenopathy: There is a right upper abdominal pericaval lymph node at the upper limits of normal in si ze. Pelvic viscera: There are prostatic calcifications present. Skeletal structures: No destructive osseous lesions are seen. IMPRESSION: 1. No evidence of bowel obstruction. No evidence of free air 2. Equivocal mild pancreatic edema. Correlation with biochemical markers is recommended to exclude pa ncreatitis 3. Very minimal pericholecystic edema, no calculi visualized. Correlation with ultrasound or fibula m edicine hepatic biliary study could be obtained as deemed clinically appropriate 4. Hypodense hepatic and renal lesions statistically representing cysts 5. 7 mm subpleural right lower lobe pulmonary nodule. A 6-12 month follow-up study is recommended per Fleischner criteria Please refer to below summary of Fleischner criteria recommendations for follow-up of incidental CT n odules (Johnny Chavez, Guidelines for management of small pulmonary nodules detected on CT scans: A sta tement from the Fleischner Society, Radiology 237: [phone].) SOLID NODULES Solitary nodule size: <6 mm * low risk patients: no follow-up needed * high risk patients: optional CT at 12 months Solitary nodule size: 6-8 mm * low risk patients: follow-up at 6-12 months, then consider further follow-up at 18-24 months * high risk patients: initial follow-up CT at 6-12 months and then at 18-24 months if no change Solitary nodule size: >8 mm * either low or high risk patients - consider follow-up CT at 3 months, and/or CT-PET, and/or biopsy Multiple nodules size: <6 mm * low risk patients: no routine follow-up * high risk patients: optional CT at 12 months Multiple nodules size: 6-8 mm * low risk patients: follow-up at 3-6 months, then consider further follow-up at 18-24 months * high risk patients: follow-up at 3-6 months, then at 18-24 months if no change Multiple nodules size: >8 mm * low risk patients: follow-up at 3-6 months, then consider further follow-up at 18-24 months * high risk patients: follow-up at 3-6 months, then at 18-24 months if no change Note: newly detected indeterminate nodule in persons 35 years of age or older. * low risk patients: minimal or absent history of smoking and/or other known risk factors * high risk patients: history of smoking or of other known risk factors (e.g. first degree relative with lung cancer, or exposure to asbestos, radon, uranium) * if a nodule up to 8 mm is partly solid or is ground glass further follow-up is required after 24 m onths to exclude possible slow growing adenocarcinoma (BOYD) SUBSOLID NODULES Solitary pure ground-glass nodule * nodule size <6 mm - no CT follow-up required * nodule size >=6 mm - follow-up CT at 6-12 months, then every 2 years until 5 years Solitary part-solid nodule * nodule size <6 mm - no CT follow-up required * nodule size >=6 mm - follow-up CT at 3-6 months. If unchanged, and solid component remains <6 mm, then annual follow-up for 5 years Multiple subsolid nodules * nodule size <6 mm - follow-up CT at 3-6 months, consider further follow-up at 2 and 4 years if sta ble * nodule size >=6 mm - follow-up CT at 3-6 months, subsequent management based on the most suspiciou s nodule(s) ACT 112: Negative or not required by law. Electronically signed by: Shai Harrison M.D. 12/21/2020 7:26 AM
[2020-12-21] MEDS: FLUTICASONE PROPIONATE NA SPR 16 GM BTL SCH (07:46)
[2020-12-21] MEDS: EZETIMIBE 10 MG TABLET PO SCH (07:47)
[2020-12-21] MEDS: PANTOprazole 40 MG TAB PO SCH (07:47)
[2020-12-21] MEDS: amLODIPine BESYLATE 5 MG TAB PO SCH (07:47)
[2020-12-21] MEDS: ASPIRIN 81 MG ECTAB PO SCH (07:47)
[2020-12-21] MEDS: METOPROLOL TARTRATE 25 MG TAB PO SCH ×2 (07:47→20:11)
--- NOTE | 2020-12-21 07:52 | Ultrasound Report ---
ULTRASOUND RIGHT UPPER QUADRANT ABDOMEN CLINICAL HISTORY: Right upper quadrant abdominal pain. COMPARISON STUDY: Abdominal CT dated 12/20/2020. TECHNIQUE: Real-time, grayscale, and color flow sonography of the right upper quadrant of the abdomen was performed. Images are reviewed in the transverse and longitudinal planes. The examination is deg raded by large body habitus. FINDINGS: Liver: The liver is enlarged and demonstrates heterogeneous increased echotexture consistent with hep atic steatosis. Note that this degrades acoustic penetration of the liver. Fatty sparing is seen preet cent to gallbladder fossa. There is no intrahepatic biliary ductal dilatation. The main portal vein i s patent. A 2.2 cm cyst is noted in the left lobe. Gallbladder: The gallbladder is distended. The gallbladder wall is top normal in thickness measuring up to 3 mm. There is intraluminal sludge. No shadowing gallstones are identified. No pericholecystic fluid is seen. A sonographic Rivas's sign could not be evaluated as the patient reportedly received analgesia. The common bile duct measures up to 0.4 cm in diameter. Pancreas: Not visualized due to overlying bowel gas. Right kidney: Survey images of the right kidney demonstrate normal size and echotexture. There is no hydronephrosis. A 2.5 cm cyst is seen in the upper pole. Ascites: None. IMPRESSION: 1. Distended gallbladder with intraluminal sludge. No shadowing gallstones are identified and a sonog raphic Rivas's sign could not be assessed. Findings are equivocal for acute cholecystitis which is n ot excluded. If there is strong clinical concern for cholecystitis a nuclear hepatobiliary scan shoul d be considered. 2. Hepatomegaly and hepatic steatosis. 3. Nonvisualization of the pancreas. ACT 112: Negative or not required by law. Electronically signed by: Jewel Garcia M.D. 12/21/2020 7:50 AM
--- NOTE | 2020-12-21 07:55 | XRay Report ---
XR chest 1V portable CLINICAL HISTORY: Atypical chest pain COMPARISON STUDY: 09/28/2015 FINDINGS: The heart is enlarged. There is no failure. There is no lobar consolidation. There are no p leural effusions. There is minor basilar atelectasis.[ IMPRESSION: Persistent cardiomegaly. No acute findings. ACT 112: Negative or not required by law. Electronically signed by: Shai Harrison M.D. 12/21/2020 7:53 AM
[2020-12-21] MEDS ORDERED: LOSARTAN POTASSIUM 50 MG TAB PO SCH (09:00)
[2020-12-21] MEDS ORDERED: RANITIDINE HCL 300 MG PO SCH (09:00)
[2020-12-21 10:37] LABS: Appearance Urine Clear (Clear); Blood Urine Negative (Negative); Color Urine Dark Yellow; Glucose Urine UA Negative (Negative); Ketones Urine Negative (Negative); Leukocyte Esterase Urine Negative (Negative); Nitrite Urine Negative (Negative); Protein Urine Negative (Negative); Specific Gravity Urine 1.028 (1.000-1.030); Urobilinogen Urine Negative (Negative); pH Urine 7.5 (4.5-7.5)
[2020-12-21 10:49] LABS: Bilirubin Urine 1+ (Negative)
--- NOTE | 2020-12-21 11:06 | Magnetic Resonance Report ---
MRCP CLINICAL HISTORY: Generalized abdominal pain. Abnormal liver function studies. COMPARISON STUDY: Abdominal CT dated 12/20/2020. Abdominal ultrasound dated 12/21/2020. TECHNIQUE: Abdominal MRCP is performed utilizing various T2-weighted sequences in the axial and coron al planes. 3-D reformats are created and assessed. IV contrast was not administered for this examinat ion. The examination is significantly degraded by motion artifact. FINDINGS: The gallbladder is distended. There is no appreciable gallbladder wall thickening. No gallstones are identified. There is no intra or extrahepatic biliary ductal dilatation. The common bile duct measure s up to 5 mm. There are no intraluminal filling defects to suggest choledocholithiasis. The pancreati c duct is normal in caliber. There are least 2 hepatic cysts which measure up to 2.1 cm. The unenhanced liver, spleen, and adrenal glands are otherwise grossly unremarkable. The kidneys demonstrate mild cortical atrophy and are wit hout hydronephrosis. Bilateral renal cysts measure up to 3.7 cm. Peripelvic cysts are noted in the le ft kidney. The abdominal aorta is normal in caliber. The pancreas is grossly unremarkable but not wel l assessed due to motion artifact. There is no evidence of bowel obstruction. No abdominal ascites is identified. The bony structures are intact as imaged. IMPRESSION: 1. Significantly motion compromised examination. 2. The gallbladder is distended with no clear MRI evidence of acute cholecystitis. No gallstones are seen. 3. Normal assessment of the intra and extrahepatic bile ducts. 4. The pancreas is grossly unremarkable but not well evaluated. Correlate with serum lipase levels. Dictated: 12/21/2020 10:41 AM Transcribed: 12/21/2020 10:57 AM Janiya [id number] [email or web address] Electronically signed by: Jewel Garcia M.D. 12/21/2020 11:04 AM
[2020-12-21] MEDS: ACETAMINOPHEN 325 MG TAB PO PRN (12:10)
[2020-12-21] MEDS: PIPERACILLIN/TAZOBACTAM 4.5 GM in DEXTROSE 5% 100 ML IV SCH ×2 (12:10→21:06)
--- NOTE | 2020-12-21 13:56 | Hospitalist Progress Note ---
Date of Service December 21, 2020 Assessment & Plan (1) Acute pancreatitis: no evidence of gallstones. No alcohol use. Concern for possible biliary infection at this point so covering with Zosyn. Lactate improved with IVF and abx. HIDA per surgery recs and will obtain preop evaluation by Cardiology. Plavix held at admission in case of procedure. Trend LFTs in am. cont supportive care efforts and bowel rest at this time. Lipase trended down and no leukocytosis is present. (2) Transaminitis: Likely a result of acute pancreatitis. Lipase has trended down and so of LFTs since this morning's check. Continue to trend. Per surgery he will be getting a HIDA scan. Continue antibiotics at this time. (3) Hypertension: Appears controlled on amlodipine 10 mg and Cozaar 100 mg daily per home regimen. Of note home Lasix 40 mg p.o. daily has been held in light of acute pancreatitis diagnosis. Continue to monitor and control pain aggressively. (4) Hyperlipidemia: Continue Lipitor and Zetia per home regimen. (5) DMII (diabetes mellitus, type 2): Currently euglycemic. Continue insulin therapy while patient is hospitalized. (6) Morbid obesity: (7) CAD (coronary artery disease): Plavix was held on admission out of concern for the need for possible procedure. Will consult cardiology for assistance with pre-operative evaluation given history of coronary disease. (8) DVT prophylaxis: Lovenox Full Dispo-to home when medically stable. Angie Cherry DO [facility] Hospitalist Admission and Anticipated Discharge Date Admission Date: December 20, 2020 Subjective 70-year-old man presented with acute severe epigastric pain after eating dinner. He had eaten flank steak with hamburger mixed into macaroni and cheese made by his at home. He denies any GI changes recently and has had no issues with his gallbladder in the past and no issues with epigastric or chest pain in the past. He does have a history of cardiac disease with stents placed in 2019. Reports no epigastric pain today Sitting at the side of the bed and feels somewhat feverish despite having recently had Tylenol and being on antibiotics Vitals rechecked and revealed blood pressure 120/80 with a pulse of 61 normal oxygenation and normal temp Denies nausea but no hunger present Afebrile Review of Systems Review of Systems: All systems reviewed & are unremarkable except as noted in Subjective Physical Exam Physical Exam: CONSTITUTIONAL: obese vitals as above, moderately ill--appearing EYES: normal conjunctivae, no scleral icterus ENT: external ear and nose normal, MMM RESPIRATORY: clear to auscultation bilaterally, no crackles, rales or wheezes, normal respiratory effort CARDIOVASCULAR: regular rate and rhythm, S1 and 2 heard without murmurs, gallops or rubs, no JVD, no peripheral edema GASTROINTESTINAL: soft, nontender, protuberant abdomen, no guarding, nondistended. MUSCULOSKELETAL: strength 5/5 throughout, can move around the bed independently, head is normocephalic and atraumatic, neck supple, normal palpation of chest wall without tenderness SKIN: warm and dry NEUROLOGIC: CN 2-12 grossly intact, no sensory deficit, normal cognition, normal speech, no gross focal deficits. PSYCHIATRIC: alert cooperative and oriented to person, place and time. Results & Data Results & Data ([facility]) Vital Signs (Past 12 Hours) Vital Signs Temp Pulse Pulse Resp BP Pulse Ox 12/21/20 11:08 37.6 C H 75 18 145/85 H 95 12/21/20 08:00 78 12/21/20 07:56 37.0 C 87 20 146/75 H 93 12/21/20 02:43 84 Laboratory Results Short CBC 12/20/20 12/21/20 Range/Units 21:28 05:19 WBC 8.78 10.56 (4.8-10.8) K/uL Hgb 12.7 L 13.2 L (14.0-18.0) g/dL Hct 38.1 L 39.6 L (42-52) % Plt Count 162 167 (130-400) K/uL BMP 12/20/20 12/21/20 21:28 05:19 Sodium 143 140 Potassium 4.1 3.7 Chloride 110 H 108 H Carbon Dioxide 26 25 BUN 23 H 21 H Creatinine 1.15 1.17 Glucose 124 H 149 H Calcium 8.8 8.9 Cardiac Enzymes 12/20/20 Range/Units 21:28 Troponin I < 0.015 (0-0.045) ng/ml Liver Function 12/20/20 12/21/20 Range/Units 21:28 05:19 Total Bilirubin 0.6 1.6 H D (0.2-1) mg/dl AST 59 H 317 H (15-37) U/L ALT 69 346 H (12-78) U/L Alkaline Phosphatase 105 143 H (45-117) U/L Albumin 3.4 3.4 (3.4-5.0) gm/dl Urine 12/21/20 Range/Units 10:15 Urine Color Dark Yellow Urine Appearance Clear (Clear) Urine pH 7.5 (4.5-7.5) Ur Specific [place] 1.028 (1.000-1.030) Urine Protein Negative (Negative) Urine Glucose (UA) Negative (Negative) Medications Administered Current Inpatient Medications Acetaminophen (Acetaminophen 325 Mg Tab) 325 mg PO Q6H PRN PRN Reason: Mild Pain Stop: 01/20/21 01:10 Last Admin: 12/21/20 12:10 Dose: 325 mg Documented by: Allopurinol (Allopurinol 300 Mg Tab) 300 mg PO PM [facility] Stop: 01/20/21 20:59 Amlodipine Besylate (Amlodipine Besylate 5 Mg Tab) 10 mg PO QAM [facility] Stop: 01/20/21 08:59 Last Admin: 12/21/20 07:47 Dose: 10 mg Documented by: Aspirin (Aspirin 81 Mg Ectab) 81 mg PO DAILY [facility] Stop: 01/20/21 08:59 Last Admin: 12/21/20 07:47 Dose: 81 mg Documented by: Atorvastatin Calcium (Atorvastatin 40 Mg Tab) 80 mg PO PM [facility] Stop: 01/20/21 20:59 Dextrose (Dextrose 50% 50 Ml Syringe) 25 - 50 ml IV UD PRN; Protocol PRN Reason: Hypoglycemia Protocol Stop: 01/20/21 01:10 Ezetimibe (Ezetimibe 10 Mg Tablet) 10 mg PO DAILY [facility] Stop: 01/20/21 08:59 Last Admin: 12/21/20 07:47 Dose: 10 mg Documented by: Fluticasone Propionate (Fluticasone Propionate Na Spr 16 Gm Btl) 2 sprays NA QAM [facility] Stop: 01/20/21 08:59 Last Admin: 12/21/20 07:46 Dose: Not Given Documented by: Glucagon (Glucagon For Inj 1 Mg Vial) 1 mg SQ UD PRN; Protocol PRN Reason: Hypoglycemia Protocol Stop: 01/20/21 01:10 Glucose (Glucose 10 Tabs/Tube) 4 - 8 tabs PO UD PRN; Protocol PRN Reason: Hypoglycemia Protocol Stop: 01/20/21 01:10 Glucose (Glucose 40% Gel 15 Gm Tube) 15 - 30 gm PO UD PRN; Protocol PRN Reason: Hypoglycemia Protocol Stop: 01/20/21 01:10 Promethazine HCl 12.5 mg/ (Sodium Chloride) 50.5 mls @ 202 mls/hr IV Q6H PRN PRN Reason: Nausea And Vomiting Stop: 01/20/21 01:10 Lorazepam (Ativan) 0.25 mg in 0.5 mls @ 0.5 mls/min IV Q4H PRN PRN Reason: Anxiety Stop: 01/20/21 01:10 Lactated Ringer's (Lr) 1,000 mls @ 150 mls/hr IV .Q6H40M [facility] Stop: 01/20/21 01:29 Last Admin: 12/21/20 07:02 Dose: 200 mls/hr Documented by: Piperacillin Sod/Tazobactam (Sod 4.5 gm/ Dextrose) 120 mls @ 30 mls/hr IV Q8H [facility] Stop: 12/31/20 11:59 Last Admin: 12/21/20 12:10 Dose: 30 mls/hr Documented by: Insulin Aspart (Insulin Aspart 100 Units/Ml 3 Ml Pen) 0 units SC Q6 [facility] Stop: 01/20/21 01:29 Last Admin: 12/21/20 12:46 Dose: Not Given Documented by: Losartan Potassium (Losartan Potassium 50 Mg Tab) 100 mg PO QAM [facility] Stop: 01/20/21 01:34 Last Admin: 12/21/20 01:46 Dose: 100 mg Documented by: Metoprolol Tartrate (Metoprolol Tartrate 25 Mg Tab) 25 mg PO BID [facility] Stop: 01/20/21 08:59 Last Admin: 12/21/20 07:47 Dose: 25 mg Documented by: Miscellaneous (Carbohydrates For Hypoglycemia ) 15 - 30 gm PO UD PRN PRN Reason: Hypoglycemia Protocol Stop: 01/20/21 01:10 Miscellaneous Information (Piperacill/Tazobac Consult Active) 1 ea N/A UD PRN PRN Reason: Consult Stop: 01/20/21 06:40 Morphine Sulfate (Morphine Sulfate 4 Mg/Ml 1 Ml Carp\Vial) 4 mg IV Q4H PRN PRN Reason: Pain Stop: 01/04/21 01:10 Pantoprazole Sodium (Pantoprazole 40 Mg Tab) 40 mg PO QAM [facility] Stop: 01/20/21 08:59 Last Admin: 12/21/20 07:47 Dose: 40 mg Documented by: Tramadol HCl (Tramadol Hcl 50 Mg Tablet) 25 - 50 mg PO Q4H PRN PRN Reason: Pain Stop: 01/20/21 01:10 (1) Acute pancreatitis Acute pancreatitis complication: unspecified Pancreatitis type: unspecified pancreatitis type Qualified Code(s): K85.90 - Acute pancreatitis without necrosis or infection, unspecified
[2020-12-21 14:23] LABS: Albumin Level 3.1 gm/dl (3.4-5.0); BUN Creatinine Ratio 17.5 (10-20); Calcium 8.3 mg/dl (8.5-10.1); Creatinine Clr Calc Pharmacy 78.7 ml/min; Est GFR (African American) 74.1; Est GFR (Non-African American) 63.9; Potassium 3.7 mmol/L (3.5-5.1)
--- NOTE | 2020-12-21 14:24 | Surgery Consultation ---
Date of Consultation December 21, 2020 Assessment & Plan (1) Acute pancreatitis: Laboratory tests and imaging was reviewed the patient does have pancreatitis likely etiology is biliary in nature although the MRCP did not visualize any filling defects which if it is large or gravel he would not pick it up At this point I do not feel the patient has acute cholecystitis based on the physical exam due to his large protuberant abdomen he certainly could be masquerading it and temperature white is does have an elevated temperature therefore I recommend we proceed with HIDA scan Based on that finding further recommendations will be made ideally would like to wait at least 2 or 3 days minimum stop the Plavix before proceeding with laparoscopic cholecystectomy if this is indeed the etiology of his pancreatitis and that decision will have to be made by cardiology This was discussed with the patient and all questions were answered Present on Admission?: Yes History of Present Illness Reason for Consultation: Possible acute cholecystitis Attending Physician: Angie Cherry, DO History of Present Illness This 70-year-old gentleman who has had an extensive cardiac history including coronary stents as recent as a year and a half ago on Plavix came in with abdominal pain in the epigastric area after eating some leftover macaroni and cheese and some fried steaks He states normally does not have any problem eating greasy foods spicy foods although the only thing that does not agree with him is Wol[place] food Is presently on Plavix for the coronary stents including other meds that are well listed Allergies Allergy/AdvReac Type Severity Reaction Status Date / Time No Known Allergies Allergy U Unverified 12/20/20 21:33 Home Medications Medication Instructions Recorded Confirmed Type ibuprofen 200 mg PO Q6H PRN #0 tab 03/11/18 12/20/20 History allopurinol 300 mg PO PM 05/24/19 12/20/20 History amlodipine 10 mg PO QAM 05/24/19 12/20/20 History atorvastatin 80 mg PO PM 05/24/19 12/20/20 History clopidogrel 75 mg PO QAM 05/24/19 12/20/20 History fluticasone propionate 2 spray INTRANASAL QAM 05/24/19 12/20/20 History losartan 100 mg PO QAM 05/24/19 12/20/20 History omega 4-qis-xuo-fish oil [[place]-3] 1 cap PO QAM 05/24/19 12/20/20 History pantoprazole 40 mg PO QAM 05/24/19 12/20/20 History aspirin [Aspirin Low-Strength] 81 mg PO DAILY 12/20/20 12/20/20 History ezetimibe 10 mg PO DAILY 12/20/20 12/20/20 History furosemide 40 mg PO DAILY 12/20/20 12/20/20 History metformin 500 mg PO BID 12/20/20 12/20/20 History propranolol 40 mg PO BID 12/21/20 12/21/20 History Patient History Medical History (Updated 12/20/20 @ 22:39 by Mark Orozco DO) GERD (gastroesophageal reflux disease) Hyperlipidemia Hypertension Obstructive sleep apnea on CPAP Squamous cell carcinoma Surgical History S/P coronary artery stent placement x's 3 Social History Smoking Status: Never smoker Second Hand Exposure: No; Do You Dip or Chew Tobacco: No; Tobacco Cessation Education Requested by Patient: No Hx Alcohol Use: No Hx Substance Use: No Preferred Language: [facility] Required: No Beliefs That Will Affect Care: None Current Living Situation: Spouse and Family current occupation: [employer] Other Information That Helps Us Care for You: No Feels Safe at Home: Yes Safety Concerns: Feels Safe At This Time Assistive Devices: CPAP Physical Exam Physical Exam: Patient is alert coherent no distress wondering when he can go home Sclerae nonicteric The abdomen patient is slightly obese prominent abdomen but I cannot elicit any abdominal or localized tenderness certainly no tenderness in the right upper quadrant Results & Data ([facility]) Vital Signs (Past 12 Hours) Vital Signs Temp Pulse Pulse Resp BP Pulse Ox 12/21/20 11:08 37.6 C H 75 18 145/85 H 95 12/21/20 08:00 78 12/21/20 07:56 37.0 C 87 20 146/75 H 93 12/21/20 02:43 84 PG Care Time/CCT Total # of Minutes Spent Total Time Spent with Patient: Total time spent is greater than 50% in coordination of care (as documented) at patient's floor/unit and/or counseling patient: Coding Level of Care Code 76464 Inpt Consult Level 3 Diagnoses Acute pancreatitis K85.90 Acute pancreatitis complication: unspecified Pancreatitis type: unspecified pancreatitis type (1) Acute pancreatitis Acute pancreatitis complication: unspecified Pancreatitis type: unspecified pancreatitis type Qualified Code(s): K85.90 - Acute pancreatitis without necrosis or infection, unspecified
[2020-12-21 14:30] LABS: Albumin Globulin Ratio 0.8 (0.9-2); Bilirubin,Total 2.2 mg/dl (0.2-1); Globulin 3.9 gm/dl (2.5-4.0)
[2020-12-21] MEDS: allopurinoL 300 MG TAB PO SCH (20:10)
[2020-12-21] MEDS: ATORVASTATIN 40 MG TAB PO SCH (20:10)
--- NOTE | 2020-12-21 21:37 | Consultation Report ---
DATE OF CONSULTATION: 12/21/2020 GASTROENTEROLOGY CONSULT NOTE REASON FOR CONSULTATION: I was asked to consult on this patient for evaluation of pancreatitis. HISTORY OF PRESENT ILLNESS: The patient is a 70-year-old who denies ever having had a bout of pancreatitis. He rarely drinks alcohol. Last evening, after dinner, he developed abdominal pain, which became increasingly worse and he presented to the Emergency Room. Upon evaluation, he was found to have pancreatitis. Upon being admitted and made n.p.o., he actually is starting to feel better already. He denies any jaundice illness. He denies any new medications. He has not had any hematemesis or blood in his stools. He has never been told he had gallstone disease. He has not needed much analgesia since being admitted. PAST MEDICAL HISTORY: I reviewed his medical records and his past medical history and his past medical history is significant for COPD, hypertension, dyslipidemia, obesity and heartburn. He has had coronary artery stenting x3. SOCIAL HISTORY: Not significant for active alcohol or smoking. FAMILY HISTORY: Negative for gastrointestinal disease. ALLERGIES: He denies any drug allergies. OUTPATIENT MEDICATIONS: Include ibuprofen p.r.n., allopurinol, amlodipine, atorvastatin, clopidogrel, losartan, pantoprazole, baby aspirin, Lasix, metformin, propranolol and ezetimibe. REVIEW OF SYSTEMS: As above, otherwise he denies any hair loss or heat or cold intolerance. He denies any seizure activity. Patient denies change in vision or hearing. Denies any change in mood. He denies any rashes or easy bruising. He has had no dysuria or polyuria. He denies any joint swelling or joint pain. He denies any productive cough or chest pain. He denies palpitations. He denies any shortness of breath on exertion. He has had no dysphagia. PHYSICAL EXAMINATION: GENERAL: Reveals a pleasant, obese gentleman in no distress, lying in bed. VITAL SIGNS: Most recent vitals show a blood pressure of 131/61, pulse is 62, temperature is 36.8. SKIN: Anicteric. EYES: Show anicteric sclerae. MOUTH: Clear of lesions. NECK: Supple with no adenopathy. CHEST: Has some scattered rhonchi, but is otherwise clear. HEART: Regular rate and rhythm. ABDOMEN: Obese, but soft with good bowel sounds. He has some mild tenderness to deep palpation in the midepigastric area. EXTREMITIES: Warm with fair distal pulses. NEUROLOGIC: He is grossly intact and alert and oriented x3. LABORATORY DATA: Labs that I reviewed showed a recent white blood cell count of 8.7, hemoglobin of 12.7, platelet count of 162,000. Lipase on admission was 12,000 and today it is 1800. Liver enzymes show a bilirubin of 2.2, AST of 199, ALT of 313 and alkaline phosphatase of 131. BUN and creatinine are 20 and 1.1, respectively. IMPRESSION PLAN: A 70-year-old gentleman with pancreatitis, most likely biliary in origin. At this point, it does not appear that he needs an emergent ERCP, though I would recommend continuing to follow his liver enzymes. He is already feeling symptomatically better. Continue with n.p.o. and aggressive hydration. Depending on how his liver enzymes and symptoms are tomorrow, we can determine timing of possible ERCP. I have discussed this with him and he is agreeable with this plan. It does not appear that this is medication related at this point. TIFF
--- NOTE | 2020-12-21 23:16 | Communication Note ---
Date of Service: December 21, 2020 Notified by RN of patient complaints of increased puffiness of extremities from IV fluids. No shortness of breath complaints. Patient on daily diuretic at home. AP Fluid overload Decrease maintenance IV fluid to 75 cc/h. Lasix 1 dose now.
[2020-12-21] MEDS ORDERED: FUROSEMIDE 20 MG in SYRINGE 0 ML IV ONE (23:30)
[2020-12-22] MEDS: LACTATED RINGER'S 1,000 ML IV SCH ×3 (00:08→16:00)
[2020-12-22] MEDS: INSULIN ASPART 100 UNITS/ML 3 ML PEN SC SCH ×4 (00:08→16:54)
[2020-12-22] MEDS: PIPERACILLIN/TAZOBACTAM 4.5 GM in DEXTROSE 5% 100 ML IV SCH ×3 (04:33→19:30)
--- NOTE | 2020-12-22 06:09 | Electrocardiogram Report ---
Test Reason : Blood Pressure : / mmHG Vent. Rate : 063 BPM Atrial Rate : 063 BPM P-R Int : 164 ms QRS Dur : 088 ms QT Int : 414 ms P-R-T Axes : 042 006 005 degrees QTc Int : 423 ms Poor data quality, interpretation may be adversely affected Normal sinus rhythm Normal ECG When compared with ECG of 28-SEP-2015 17:39, No significant change was found Confirmed by Elan Jeff ([id number]) on 12/22/2020 6:08:44 AM Referred By: REFERRED SELF Confirmed By:Elan Jeff
[2020-12-22 06:19] LABS: Hematocrit (blood only) 38.2 % (42-52); Hemoglobin 12.7 g/dL (14.0-18.0); Mean Corpuscular Hemoglobin 29.5 pg (25-34); Mean Corpuscular Hgb Conc 33.2 g/dL (32-36); Mean Corpuscular Volume 88.8 fL (80-100); Mean Platelet Volume 9.4 fL (7.4-10.4); Platelet Count 118 K/uL (130-400); RDW Coefficient of Variation 14.9 % (11.5-14.5); RDW Standard Deviation 47.9 fL (36.4-46.3)
[2020-12-22 06:51] LABS: Albumin Level 3.2 gm/dl (3.4-5.0); BUN Creatinine Ratio 15.3 (10-20); Calcium 8.6 mg/dl (8.5-10.1); Creatinine Clr Calc Pharmacy 85.9 ml/min; Est GFR (African American) 81.7; Est GFR (Non-African American) 70.5; Potassium 3.9 mmol/L (3.5-5.1)
[2020-12-22 06:54] LABS: Albumin Globulin Ratio 0.9 (0.9-2); Bilirubin,Total 1.9 mg/dl (0.2-1); Globulin 3.7 gm/dl (2.5-4.0); Total Protein 6.9 gm/dl (6.4-8.2)
--- NOTE | 2020-12-22 07:16 | Surgery Progress Note ---
Date of Service December 22, 2020 Assessment & Plan (1) Acute pancreatitis: Patient's pancreatitis is resolving lipase is decreasing liver enzymes slightly decreasing patient is scheduled for a HIDA scan today to rule out acute cholecystitis that may not be apparent clinically on physical exam The Plavix has been held for approximately 48 hours and if cardiology clears the patient recommend proceeding with laparoscopic cholecystectomy in about 48 hours and at that time pending his liver function tests may proceed with intraoperative cholangiogram plus or minus ERCP Admission and Anticipated Discharge Date Admission Date: December 20, 2020 Subjective Patient feels somewhat better back pain is bit better not nauseated Physical Exam 2 Physical Exam: Sclera nonicteric The abdomen is much softer there is no localized tenderness Results & Data ([facility]) Vital Signs (Past 12 Hours) Vital Signs Temp Pulse Pulse Resp BP Pulse Ox 12/22/20 07:00 75 12/22/20 03:00 36.9 C 67 17 143/68 H 96 12/21/20 19:40 37.5 C 79 20 150/71 H 95 Noted results PG Care Time/CCT Total # of Minutes Spent Total Time Spent with Patient: Total time spent is greater than 50% in coordination of care (as documented) at patient's floor/unit and/or counseling patient: Coding Level of Care Code 56035 Subseq Hosp Care Lvl 3 Diagnoses Acute pancreatitis K85.90 Acute pancreatitis complication: unspecified Pancreatitis type: unspecified pancreatitis type (1) Acute pancreatitis Acute pancreatitis complication: unspecified Pancreatitis type: unspecified pancreatitis type Qualified Code(s): K85.90 - Acute pancreatitis without necrosis or infection, unspecified
[2020-12-22] MEDS: LOSARTAN POTASSIUM 50 MG TAB PO SCH (08:01)
[2020-12-22] MEDS: PANTOprazole 40 MG TAB PO SCH (08:02)
[2020-12-22] MEDS: EZETIMIBE 10 MG TABLET PO SCH (08:02)
[2020-12-22] MEDS: FLUTICASONE PROPIONATE NA SPR 16 GM BTL SCH (08:02)
[2020-12-22] MEDS: ASPIRIN 81 MG ECTAB PO SCH (08:02)
[2020-12-22] MEDS: amLODIPine BESYLATE 5 MG TAB PO SCH (08:02)
[2020-12-22] MEDS: METOPROLOL TARTRATE 25 MG TAB PO SCH ×2 (08:02→20:48)
--- NOTE | 2020-12-22 09:59 | Nuclear Medicine Report ---
NM hepatobiliary CLINICAL HISTORY: Right upper quadrant abdominal pain COMPARISON STUDY: MRCP dated 12/21/2020, gallbladder ultrasound dated 12/21/2020 FINDINGS: The patient was injected with 5.2 mCi of technetium 99m Choletec. Anterior imaging was perf ormed. There is normal hepatic excretion. There is normal passage of activity into small bowel. The gallblad sunitha was first visualized on the 10 minute image. IMPRESSION: Normal study. No evidence of cystic duct obstruction. ACT 112: Negative or not required by law. Electronically signed by: Shai Harrison M.D. 12/22/2020 9:58 AM
--- NOTE | 2020-12-22 10:14 | Cardiology Consultation ---
Date of Consultation December 22, 2020 Assessment & Plan (1) Preop cardiovascular exam: (2) Acute pancreatitis: (3) CAD (coronary artery disease): (4) Morbid obesity: (5) Obstructive sleep apnea on CPAP: (6) DMII (diabetes mellitus, type 2): Is my pleasure to see Mr. Wood in cardiac consultation today. He does carry a history of complex coronary intervention approximately 2 years ago and has been sustained on dual antiplatelet therapy since that time. Given the fact has been 2 years since his intervention I do believe it be reasonable to hold his Plavix in anticipation of any possible upcoming interventional procedures. His aspirin will be continued uninterrupted and Plavix will be restarted once bleeding risk is acceptable. In terms of his preop risk assessment he was counseled that placement is a moderate risk for any adverse perioperative cardiovascular event with his risk being approximately less than 5%. He was further counseled that no further cardiac testing or intervention would further lower that risk. He states he understands, he is accepting of that risk and would wish to proceed with any intervention deemed necessary. He has remained hypertensive in the setting of significant abdominal pain. His outpatient doses of amlodipine, atorvastatin, Zetia, losartan and propanolol should be continued. Consideration could be given to adding p.o. hydralazine as needed as well. History of Present Illness Reason for Consultation: Preop risk assessment Requesting Physician: Dr. Cherry Attending Physician: Angie Cherry, DO History of Present Illness Mr. Wood is a very pleasant 70-year-old gentleman who routinely follows with Dr. Archibald of our cardiology practice. He presented to [facility] on 12/21/2020 with complaints of severe abdominal pain lasting approximately 8 hours. He states the pain was from his right upper quadrant with possible radiation up to his chest. The pain was worsened with movement or deep inhalation. Upon arrival the patient was found to be suffering from acute pancreatitis with possible biliary etiology. He was admitted and started on appropriate medical therapy. He was seen by GI and surgery and his Plavix was held in anticipation of possible upcoming procedures. Currently states he feels well. He denies any recent episodes of chest discomfort, shortness of breath, palpitations, lightheadedness, dizziness or syncope. He has been take his medications as directed without issue. Past medical history as per most recent outpatient cardiology visit: 1. Hypertension 2. Hyperlipidemia 3. Obstructive sleep apnea on CPAP supplementation 4. Three vessel coronary disease identified after cardiac catheterization for crescendo angina, abnormal stress testing December 26, 2018 5. Status post drug-eluting stent to the proximal left anterior descending, drug-eluting stent to the mid right coronary artery after rotablation. Residual 100% left circumflex proximal occlusion 6. Class 2 chronic angina pectoris, stable 7. Obesity Allergies Allergy/AdvReac Type Severity Reaction Status Date / Time No Known Allergies Allergy U Unverified 12/20/20 21:33 Home Medications Medication Instructions Recorded Confirmed Type ibuprofen 200 mg PO Q6H PRN #0 tab 03/11/18 12/20/20 History allopurinol 300 mg PO PM 05/24/19 12/20/20 History amlodipine 10 mg PO QAM 05/24/19 12/20/20 History atorvastatin 80 mg PO PM 05/24/19 12/20/20 History clopidogrel 75 mg PO QAM 05/24/19 12/20/20 History fluticasone propionate 2 spray INTRANASAL QA 05/24/19 12/20/20 History losartan 100 mg PO QAM 05/24/19 12/20/20 History omega 6-yqu-dyz-fish oil [[place]-3] 1 cap PO QAM 05/24/19 12/20/20 History pantoprazole 40 mg PO QAM 05/24/19 12/20/20 History aspirin [Aspirin Low-Strength] 81 mg PO DAILY 12/20/20 12/20/20 History ezetimibe 10 mg PO DAILY 12/20/20 12/20/20 History furosemide 40 mg PO DAILY 12/20/20 12/20/20 History metformin 500 mg PO BID 12/20/20 12/20/20 History propranolol 40 mg PO BID 12/21/20 12/21/20 History Patient History Medical History GERD (gastroesophageal reflux disease) Hyperlipidemia Hypertension Obstructive sleep apnea on CPAP Squamous cell carcinoma Surgical History S/P coronary artery stent placement x's 3 Social History Smoking Status: Never smoker Second Hand Exposure: No; Do You Dip or Chew Tobacco: No; Tobacco Cessation Education Requested by Patient: No Hx Alcohol Use: No Hx Substance Use: No Preferred Language: [place] [employer] Required: No Beliefs That Will Affect Care: None Current Living Situation: Spouse and Family 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 No acute distress. HEENT: Normocephalic, atraumatic. Pupils equal, round and reactive to light and accommodation. Extraocular muscles are intact. Anicteric sclera. Moist mucous membranes. Neck: No JVD. No bruit. Cardiovascular: Regular. Positive S-4. Normal S-1 and S-2. No S-3. No murmurs or rubs. Pulmonary: Clear to auscultation B/L. No rales, rhonchi or wheezing Abdomen: Bowel sounds x 4, soft. No rebound, guarding or tenderness. No organomegaly. Extremities: No clubbing, cyanosis or edema. +2 pedal pulses bilaterally. Skin: Warm and dry. Results & Data ([facility]) Vital Signs (Past 12 Hours) Vital Signs Temp Pulse Pulse Resp BP Pulse Ox 12/22/20 08:00 36.8 C 72 20 150/70 H 95 12/22/20 07:00 75 12/22/20 03:00 36.9 C 67 17 143/68 H 96 (1) Acute pancreatitis Acute pancreatitis complication: unspecified Pancreatitis type: unspecified pancreatitis type Qualified Code(s): K85.90 - Acute pancreatitis without necrosis or infection, unspecified
--- NOTE | 2020-12-22 14:27 | Surgery Progress Note ---
Date of Service December 22, 2020 Assessment & Plan (1) Acute pancreatitis: Results of the HIDA scan was discussed with the patient there is no acute cholecystitis refer everyone agrees he has been off blood thinners for approximately 48 hours we will plan for surgery on Wednesday plus or minus with gastroenterology presents Present on Admission?: Yes Admission and Anticipated Discharge Date Admission Date: December 20, 2020 Results & Data ([facility]) Vital Signs (Past 12 Hours) Vital Signs Temp Pulse Pulse Resp BP BP Pulse Ox 12/22/20 12:06 37.3 C 83 20 179/77 H 94 12/22/20 08:00 36.8 C 72 20 150/70 H 95 12/22/20 07:00 75 12/22/20 03:00 36.9 C 67 17 143/68 H 96 PG Care Time/CCT Total # of Minutes Spent Total Time Spent with Patient: Total time spent is greater than 50% in coordination of care (as documented) at patient's floor/unit and/or counseling patient: Coding Level of Care Code None Diagnoses Acute pancreatitis K85.90 Acute pancreatitis complication: unspecified Pancreatitis type: unspecified pancreatitis type (1) Acute pancreatitis Acute pancreatitis complication: unspecified Pancreatitis type: unspecified pancreatitis type Qualified Code(s): K85.90 - Acute pancreatitis without necrosis or infection, unspecified
--- NOTE | 2020-12-22 17:48 | Hospitalist Progress Note ---
Date of Service December 22, 2020 Assessment & Plan (1) Acute pancreatitis: no evidence of gallstones, however, he has a GNB bacteremia indicating possible recent stone passage. Cont empiric Zosyn pending speciation. Repeat cultures performed after 24 hours. Denies alcohol use. Plavix held at admission in case of procedure. LFTs and clinical appearance are improving. Lipase trended down. Per Surgery will plan for lap gloria on with intra-operative cholangiogram. (2) Transaminitis: Likely a result of acute pancreatitis. Lipase has trended down and so of LFTs since this morning's check. HIDA negative so no evidence of acute biliary infection at this time. (3) Hypertension: Uncontrolled likely related to IVF administration. Stopping these now and giving additional dose of Lasix now, which he takes at home and which he was given yesterday. Cont amlodipine 10 mg and Cozaar 100 mg daily per home regimen. Cont holding Lasix 40mg daily for now to avoid dehydration in setting of acute pancreatitis. (4) Hyperlipidemia: Continue Lipitor and Zetia per home regimen. (5) DMII (diabetes mellitus, type 2): Currently euglycemic. Continue insulin therapy while patient is hospitalized. (6) Morbid obesity: (7) CAD (coronary artery disease): Plavix was held on admission out of concern for the need for possible procedure. No further workup needed from a cardiac standpoint in order to proceed with lap gloria in two days. Cont holding Plavix until safe from a bleeding standpoint to restart this post-operatively. (8) DVT prophylaxis: Lovenox Full Dispo-to home when medically stable. Angie Cherry DO [facility] Hospitalist Admission and Anticipated Discharge Date Admission Date: December 20, 2020 Subjective 70-year-old man presented with acute pancreatitis. No evidence of gallstones on workup, however, GNB bacteremia present. -HIDA normal -patient feels improved from yesterday but still not great -afebrile and feels hungry -continuing to hold plavix -cleared by cardiology for lap gloria -plans for lap gloria on with GI assist for intraoperative cholangiogram -started patient on clears. -repeat BCX -denies abdominal pain -no BM Review of Systems Review of Systems: All systems reviewed & are unremarkable except as noted in Subjective Physical Exam Physical Exam: CONSTITUTIONAL: obese vitals as above, NAD EYES: normal conjunctivae, no scleral icterus ENT: external ear and nose normal, MMM RESPIRATORY: clear to auscultation bilaterally, no crackles, rales or wheezes, normal respiratory effort CARDIOVASCULAR: regular rate and rhythm, S1 and 2 heard without murmurs, gallops or rubs, no JVD, no peripheral edema GASTROINTESTINAL: soft, nontender, protuberant abdomen, no guarding, nondistended. MUSCULOSKELETAL: strength 5/5 throughout, can move around the bed independently, head is normocephalic and atraumatic, neck supple, normal palpation of chest wall without tenderness SKIN: warm and dry NEUROLOGIC: CN 2-12 grossly intact, no sensory deficit, normal cognition, normal speech, no gross focal deficits. PSYCHIATRIC: alert cooperative and oriented to person, place and time. Results & Data Results & Data ([facility]) Vital Signs (Past 12 Hours) Vital Signs Temp Pulse Pulse Resp BP BP Pulse Ox 12/22/20 16:05 86 12/22/20 15:04 37.2 C 82 18 178/76 H 94 12/22/20 12:06 37.3 C 83 20 179/77 H 94 12/22/20 08:00 36.8 C 72 20 150/70 H 95 12/22/20 07:00 75 Laboratory Results Short CBC 12/22/20 Range/Units 06:04 WBC 7.30 (4.8-10.8) K/uL Hgb 12.7 L (14.0-18.0) g/dL Hct 38.2 L (42-52) % Plt Count 118 L (130-400) K/uL BMP 12/22/20 06:04 Sodium 138 Potassium 3.9 Chloride 105 Carbon Dioxide 28 BUN 16 Creatinine 1.07 Glucose 114 H Calcium 8.6 Liver Function 12/22/20 Range/Units 06:04 Total Bilirubin 1.9 H (0.2-1) mg/dl AST 96 H (15-37) U/L ALT 228 H (12-78) U/L Alkaline Phosphatase 123 H (45-117) U/L Albumin 3.2 L (3.4-5.0) gm/dl Medications Administered Current Inpatient Medications Acetaminophen (Acetaminophen 325 Mg Tab) 325 mg PO Q6H PRN PRN Reason: Mild Pain Stop: 01/20/21 01:10 Last Admin: 12/21/20 12:10 Dose: 325 mg Documented by: Allopurinol (Allopurinol 300 Mg Tab) 300 mg PO PM [facility] Stop: 01/20/21 20:59 Last Admin: 12/21/20 20:10 Dose: 300 mg Documented by: Amlodipine Besylate (Amlodipine Besylate 5 Mg Tab) 10 mg PO QAM [facility] Stop: 01/20/21 08:59 Last Admin: 12/22/20 08:02 Dose: Not Given Documented by: Aspirin (Aspirin 81 Mg Ectab) 81 mg PO DAILY [facility] Stop: 01/20/21 08:59 Last Admin: 12/22/20 08:02 Dose: Not Given Documented by: Atorvastatin Calcium (Atorvastatin 40 Mg Tab) 80 mg PO PM [facility] Stop: 01/20/21 20:59 Last Admin: 12/21/20 20:10 Dose: 80 mg Documented by: Dextrose (Dextrose 50% 50 Ml Syringe) 25 - 50 ml IV UD PRN; Protocol PRN Reason: Hypoglycemia Protocol Stop: 01/20/21 01:10 Ezetimibe (Ezetimibe 10 Mg Tablet) 10 mg PO DAILY [facility] Stop: 01/20/21 08:59 Last Admin: 12/22/20 08:02 Dose: Not Given Documented by: Fluticasone Propionate (Fluticasone Propionate Na Spr 16 Gm Btl) 2 sprays NA QAM [facility] Stop: 01/20/21 08:59 Last Admin: 12/22/20 08:02 Dose: Not Given Documented by: Glucagon (Glucagon For Inj 1 Mg Vial) 1 mg SQ UD PRN; Protocol PRN Reason: Hypoglycemia Protocol Stop: 01/20/21 01:10 Glucose (Glucose 10 Tabs/Tube) 4 - 8 tabs PO UD PRN; Protocol PRN Reason: Hypoglycemia Protocol Stop: 01/20/21 01:10 Glucose (Glucose 40% Gel 15 Gm Tube) 15 - 30 gm PO UD PRN; Protocol PRN Reason: Hypoglycemia Protocol Stop: 01/20/21 01:10 Promethazine HCl 12.5 mg/ (Sodium Chloride) 50.5 mls @ 202 mls/hr IV Q6H PRN PRN Reason: Nausea And Vomiting Stop: 01/20/21 01:10 Lorazepam (Ativan) 0.25 mg in 0.5 mls @ 0.5 mls/min IV Q4H PRN PRN Reason: Anxiety Stop: 01/20/21 01:10 Piperacillin Sod/Tazobactam (Sod 4.5 gm/ Dextrose) 120 mls @ 30 mls/hr IV Q8H [facility] Stop: 12/31/20 11:59 Last Infusion: 12/22/20 16:00 Dose: Infused Documented by: Furosemide 20 mg/ Syringe 2 mls @ 4 mls/min IV ONE ONE Stop: 12/22/20 17:41 Insulin Aspart (Insulin Aspart 100 Units/Ml 3 Ml Pen) 0 units SC Q6 [facility] Stop: 01/20/21 01:29 Last Admin: 12/22/20 16:54 Dose: Not Given Documented by: Losartan Potassium (Losartan Potassium 50 Mg Tab) 100 mg PO QAM [facility] Stop: 01/20/21 01:34 Last Admin: 12/22/20 08:01 Dose: Not Given Documented by: Metoprolol Tartrate (Metoprolol Tartrate 25 Mg Tab) 25 mg PO BID [facility] Stop: 01/20/21 08:59 Last Admin: 12/22/20 08:02 Dose: Not Given Documented by: Miscellaneous (Carbohydrates For Hypoglycemia ) 15 - 30 gm PO UD PRN PRN Reason: Hypoglycemia Protocol Stop: 01/20/21 01:10 Miscellaneous Information (Piperacill/Tazobac Consult Active) 1 ea N/A UD PRN PRN Reason: Consult Stop: 01/20/21 06:40 Morphine Sulfate (Morphine Sulfate 4 Mg/Ml 1 Ml Carp\Vial) 4 mg IV Q4H PRN PRN Reason: Pain Stop: 01/04/21 01:10 Pantoprazole Sodium (Pantoprazole 40 Mg Tab) 40 mg PO QAM [facility] Stop: 01/20/21 08:59 Last Admin: 12/22/20 08:02 Dose: Not Given Documented by: Tramadol HCl (Tramadol Hcl 50 Mg Tablet) 25 - 50 mg PO Q4H PRN PRN Reason: Pain Stop: 01/20/21 01:10 Last Admin: 12/21/20 22:18 Dose: 50 mg Documented by: (1) Acute pancreatitis Acute pancreatitis complication: unspecified Pancreatitis type: unspecified pancreatitis type Qualified Code(s): K85.90 - Acute pancreatitis without necrosis or infection, unspecified
[2020-12-22] MEDS ORDERED: FUROSEMIDE 20 MG in SYRINGE 0 ML IV ONE (18:15)
[2020-12-22] MEDS: ATORVASTATIN 40 MG TAB PO SCH (20:48)
[2020-12-22] MEDS: allopurinoL 300 MG TAB PO SCH (20:48)
[2020-12-23] MEDS: INSULIN ASPART 100 UNITS/ML 3 ML PEN SC SCH ×4 (00:47→17:40)
[2020-12-23] MEDS: ACETAMINOPHEN 325 MG TAB PO PRN (02:39)
[2020-12-23] MEDS ORDERED: FUROSEMIDE 20 MG in SYRINGE 0 ML IV ONE (03:45)
[2020-12-23] MEDS: PIPERACILLIN/TAZOBACTAM 4.5 GM in DEXTROSE 5% 100 ML IV SCH ×3 (04:22→20:42)
[2020-12-23 07:21] LABS: Albumin Level 3.1 gm/dl (3.4-5.0); BUN Creatinine Ratio 14.7 (10-20); Calcium 8.6 mg/dl (8.5-10.1); Creatinine Clr Calc Pharmacy 72.4 ml/min; Est GFR (Non-African American) 57.8; Magnesium 2.5 mg/dl (1.8-2.4); Potassium 3.4 mmol/L (3.5-5.1)
[2020-12-23 07:24] LABS: Albumin Globulin Ratio 0.7 (0.9-2); Bilirubin,Total 1.5 mg/dl (0.2-1); Globulin 4.3 gm/dl (2.5-4.0); Total Protein 7.4 gm/dl (6.4-8.2)
--- NOTE | 2020-12-23 07:56 | XRay Report ---
XR chest 1V portable HISTORY: Shortness of breath. COMPARISON: Chest 12/20/2020. FINDINGS: The cardiac silhouette remains mildly enlarged. No pleural effusions. No pneumothorax. No n ew focal lung consolidations to suggest pneumonia. No evidence for pulmonary edema. IMPRESSION: No acute process. ACT 112: Negative or not required by law. Electronically signed by: Kevin Lobato M.D. 12/23/2020 7:55 AM
--- NOTE | 2020-12-23 08:08 | Surgery Progress Note ---
Date of Service December 23, 2020 Assessment & Plan (1) Acute pancreatitis: seen with Dr. Guerrero pancreatitis resolving will plan for lap gloria tomorrow Admission and Anticipated Discharge Date Admission Date: December 20, 2020 Subjective feeling better, tolerating clears Physical Exam Gastrointestinal (Abdomen): Inspection/Auscultation: abdomen not distended Percussion/Palpation: + abdomen tender (minimal) and abdomen soft Results & Data ([facility]) Vital Signs (Past 12 Hours) Vital Signs Temp Pulse Pulse Resp BP Pulse Ox 12/23/20 08:01 36.8 C 51 L 18 123/69 98 12/23/20 07:54 73 12/23/20 03:11 38 C H 77 17 141/74 H 90 12/23/20 01:26 79 12/22/20 23:10 36.9 C 80 20 161/71 H 95 PG Care Time/CCT Total # of Minutes Spent Total Time Spent with Patient: Total time spent is greater than 50% in coordin ation of care (as documented) at patient's floor/unit and/or counseling patient: Coding Level of Care Code 36896 Subseq Hosp Care Lvl 1 Diagnoses Acute pancreatitis K85.90 Acute pancreatitis complication: unspecified Pancreatitis type: unspecified pancreatitis type (1) Acute pancreatitis Acute pancreatitis complication: unspecified Pancreatitis type: unspecified pancreatitis type Qualified Code(s): K85.90 - Acute pancreatitis without necrosis or infection, unspecified
--- NOTE | 2020-12-23 08:09 | Surgery Progress Note ---
Date of Service December 23, 2020 Assessment & Plan (1) Cholecystectomy planned: We will proceed with laparoscopic cholecystectomy intraoperative cholangiogram for tomorrow if the medical service and cardiology agree Laboratory confirms that he probably passed the stone or sludge since liver enzymes are normalizing in clinic is improving He has been off anticoagulation for approximately 72 hours Present on Admission?: Yes Admission and Anticipated Discharge Date Admission Date: December 20, 2020 Subjective Overall feels better still has some back pain although subsiding most of the problem this morning is that is bed is at 45 and cannot get his head to go down He tolerated liquids yesterday as no belly pain Physical Exam Physical Exam: Alert coherent in no distress looks uncomfortable due to his bed situation which we reported to the nurses The abdomen soft distended periumbilical area with a hernia benign state Results & Data ([facility]) Vital Signs (Past 12 Hours) Vital Signs Temp Pulse Pulse Resp BP Pulse Ox 12/23/20 08:01 36.8 C 51 L 18 123/69 98 12/23/20 07:54 73 12/23/20 03:11 38 C H 77 17 141/74 H 90 12/23/20 01:26 79 12/22/20 23:10 36.9 C 80 20 161/71 H 95 PG Care Time/CCT Total # of Minutes Spent Total Time Spent with Patient: Total time spent is greater than 50% in coordination of care (as documented) at patient's floor/unit and/or counseling patient: Coding Level of Care Code None Diagnoses Cholecystectomy planned
[2020-12-23] MEDS: amLODIPine BESYLATE 5 MG TAB PO SCH (09:14)
[2020-12-23] MEDS: POTASSIUM CHLORIDE CRTAB 20 MEQ TABCR PO SCH ×2 (09:14→20:43)
[2020-12-23] MEDS: METOPROLOL TARTRATE 25 MG TAB PO SCH ×2 (09:14→20:43)
[2020-12-23] MEDS: EZETIMIBE 10 MG TABLET PO SCH (09:15)
[2020-12-23] MEDS: ASPIRIN 81 MG ECTAB PO SCH (09:15)
[2020-12-23] MEDS: FLUTICASONE PROPIONATE NA SPR 16 GM BTL SCH (09:15)
[2020-12-23] MEDS: LOSARTAN POTASSIUM 50 MG TAB PO SCH (09:15)
[2020-12-23] MEDS: PANTOprazole 40 MG TAB PO SCH (09:15)
--- NOTE | 2020-12-23 11:04 | Gastroenterology Progress Note ---
Date of Service December 23, 2020 Assessment & Plan (1) Elevated LFTs: Likely related to cholecystitis, though he may have passed some sludge, there is no evidence of choledocholithiasis on imaging. Plan is for cholecystectomy with OR cholangiogram. If any evidence of choledocholithiasis on cholangiogram, then we will arrange ERCP. Admission and Anticipated Discharge Date Admission Date: December 20, 2020 Supervising Physician Co-Signing Physician Notes I have seen and examined the patient and discussed the management with BRENDA Glynn. Pain has improved PE noteable for nonincteric scera, benign abd exam Tolearting liquid Lft's reivewed Plavix has been held Lap chol is planned for tomorrow with IOC, agree with further plan of care as per Kel's assessment and plan. Subjective Mr. Kehinde Wood is a 70 yr old male with a hx of HTN, COPD, obesity, CAD on Plavix. He presented late Wednesday for post prandial upper abd pain radiating to the back. On arrival, CT and elevated lipase consistent with pancreatitis. US on arrival with distended gallbladder with stones. He reports abd pain much better by Sat mid day on 12/21. Lipase 12, 214 on arrival -> 1817 on 12/21. No N/V. LFTs bumped but improving: T Bili 1.6-> 2.2 _> 1.5, AST 317->54, ALT 317->152, AP 346->114. Results & Data ([facility]) Vital Signs (Past 12 Hours) Vital Signs Temp Pulse Pulse Resp BP Pulse Ox 12/23/20 10:10 88 12/23/20 08:01 36.8 C 51 L 18 123/69 98 12/23/20 07:54 73 12/23/20 03:11 38 C H 77 17 141/74 H 90 12/23/20 01:26 79 12/22/20 23:10 36.9 C 80 20 161/71 H 95 Laboratory Results WBC 7.3, Hb 12.7, Hct 38.2, Plts 118, Na 138, K 3.4, BUN 19, Cr 1.26, glucose 116. See HPI for LFTs and lipase. Diagnostic Findings CT w IV contrast 12/20: Liver: There is hepatic steatosis. There is 21 mm left lobe hypodensity. This approaches water attenuation likely represents a cyst. There is a 12 mm right lobe hypodensity, also likely representing a cyst. Gallbladder: There is very subtle infiltration of pericholecystic fat. No stones are visualized. Spleen: Normal in size and attenuation. US Pancreas: There is equivocal minimal pancreatic edema. Correlation with biochemical markers is recommended to exclude pancreatitis. US 12/20/20: 1. Distended gallbladder with intraluminal sludge. No shadowing gallstones are identified and a sonographic Rivas's sign could not be assessed. Findings are equivocal for acute cholecystitis which is not excluded. If there is strong clinical concern for cholecystitis a nuclear hepatobiliary scan should be considered. 2. Hepatomegaly and hepatic steatosis. 3. Nonvisualization of the pancreas. MRCP 12/21/20: 1. Significantly motion compromised examination. 2. The gallbladder is distended with no clear MRI evidence of acute cholecystitis. No gallstones are seen. 3. Normal assessment of the intra and extrahepatic bile ducts. 4. The pancreas is grossly unremarkable but not well evaluated. Correlate with serum lipase levels.
--- NOTE | 2020-12-23 11:39 | Cardiology Progress Note ---
Date of Service December 23, 2020 Assessment & Plan (1) Preop cardiovascular exam: (2) Acute pancreatitis: (3) CAD (coronary artery disease): (4) Morbid obesity: (5) Obstructive sleep apnea on CPAP: (6) DMII (diabetes mellitus, type 2): He does carry a history of complex coronary intervention approximately 2 years ago and has been sustained on dual antiplatelet therapy since that time. Given the fact has been 2 years since his intervention I do believe it be reasonable to hold his Plavix in anticipation of any possible upcoming interventional procedures. His aspirin will be continued uninterrupted and Plavix will be restarted once bleeding risk is acceptable. In terms of his preop risk assessment he was counseled that placement is a moderate risk for any adverse perioperative cardiovascular event with his risk being approximately less than 5%. He was further counseled that no further cardiac testing or intervention would further lower that risk. He states he understands, he is accepting of that risk and would wish to proceed with any intervention deemed necessary. He has remained hypertensive in the setting of significant abdominal pain. His outpatient doses of amlodipine, atorvastatin, Zetia, losartan and propanolol should be continued. Consideration could be given to adding p.o. hydralazine as needed as well. Admission and Anticipated Discharge Date Admission Date: December 20, 2020 Subjective Patient seen and examined out of bed in chair, chart reviewed. States that he feels well without recurrences of his abdominal pain. Denies any cardiac complaints of chest pain, shortness of breath, lightheadedness, dizziness or syncope. Telemetry reviewed: Normal sinus rhythm without arrhythmia Review of Systems Review of Systems: All systems reviewed & are unremarkable except as noted in HPI & below Physical Exam Physical Exam: General: Awake, alert and oriented x 3. No acute distress. HEENT: Normocephalic, atraumatic. Pupils equal, round and reactive to light a nd accommodation. Extraocular muscles are intact. Anicteric sclera. Moist mucous membranes. Neck: No JVD. No bruit. Cardiovascular: Regular. Positive S-4. Normal S-1 and S-2. No S-3. No murm urs or rubs. Pulmonary: Clear to auscultation B/L. No rales, rhonchi or wheezing Abdomen: Bowel sounds x 4, soft. No rebound, guarding or tenderness. No organomegaly. Extremities: No clubbing, cyanosis or edema. +2 pedal pulses bilaterally. Skin: Warm and dry. Results & Data ([facility]) Vital Signs (Past 12 Hours) Vital Signs Temp Pulse Pulse Resp BP Pulse Ox 12/23/20 10:10 88 12/23/20 08:01 36.8 C 51 L 18 123/69 98 12/23/20 07:54 73 12/23/20 03:11 38 C H 77 17 141/74 H 90 12/23/20 01:26 79 (1) Acute pancreatitis Acute pancreatitis complication: unspecified Pancreatitis type: unspecified pancreatitis type Qualified Code(s): K85.90 - Acute pancreatitis without necros is or infection, unspecified
[2020-12-23] MEDS ORDERED: hydrALAZINE HCL 20 MG/ML VIAL IV PRN (12:57)
--- NOTE | 2020-12-23 12:59 | Hospitalist Progress Note ---
Date of Service December 23, 2020 Assessment & Plan (1) Acute pancreatitis: Overall patient is doing okay. Pain is currently well controlled. Remains n.p.o. No evidence of any gallstones. Cultures positive for gram-negative bacteremia. We will continue Zosyn. Repeat blood cultures negative thus far. Continue holding Plavix for now, likely to be resumed post surgery. Plan for cholecystectomy with intraoperative cholangiogram tomorrow. We will start patient on maintenance IV fluids. (2) Transaminitis: HIDA scan negative for any infection. LFTs continue to improve. (3) Hypertension: Likely in the setting of pain as well. Can have hydralazine as needed for systolic blood pressure greater than 180. Cont amlodipine 10 mg and Cozaar 100 mg daily per home regimen. Cont holding Lasix 40mg daily for now to avoid dehydration in setting of acute pancreatitis. (4) Hyperlipidemia: Continue Lipitor and Zetia per home regimen. (5) DMII (diabetes mellitus, type 2): Currently euglycemic. Continue insulin therapy while patient is hospitalized. (6) Morbid obesity: (7) CAD (coronary artery disease): Appreciate cardiology input. Continue holding Plavix for now. To be resumed after surgery. (8) DVT prophylaxis: Lovenox Full Dispo-to home when medically stable. Admission and Anticipated Discharge Date Admission Date: December 20, 2020 Subjective Patient is doing okay this morning. Reports pain is well controlled. Denies any nausea or vomiting. Denies any chest pain or shortness of breath. Denies any abdominal pain at the moment. Rest of the review of system is negative. Review of Systems Review of Systems: All systems reviewed & are unremarkable except as noted in HPI & below Physical Exam Physical Exam: General: A&Ox3 HENT: NCAT, MMM, EOMI Eyes: PERRLA Neck: Supple, normal range of motion CVS: normal rate and rhythm Resp: b/l good breath sounds Abdomen: Soft, nondistended nontender Extremities: No c/c/e Neuro: face symmetric, strength grossly equal, no focal deficit Skin: warm and dry, no rashes/lesions/errythema MSK: normal ROM, no joint swelling/erythema Results & Data Results & Data ([facility]) Vital Signs (Past 12 Hours) Vital Signs Temp Pulse Pulse Resp BP Pulse Ox 12/23/20 11:46 36.8 C 65 18 133/66 96 12/23/20 10:10 88 12/23/20 08:01 36.8 C 51 L 18 123/69 98 12/23/20 07:54 73 12/23/20 03:11 38 C H 77 17 141/74 H 90 12/23/20 01:26 79 (1) Acute pancreatitis Acute pancreatitis complication: unspecified Pancreatitis type: unspecified pancreatitis type Qualified Code(s): K85.90 - Acute pancreatitis without necrosis or infection, unspecified
[2020-12-23] MEDS: ATORVASTATIN 40 MG TAB PO SCH (20:43)
[2020-12-23] MEDS: allopurinoL 300 MG TAB PO SCH (20:44)
[2020-12-24] MEDS: INSULIN ASPART 100 UNITS/ML 3 ML PEN SC SCH ×5 (01:04→21:55)
[2020-12-24] MEDS: PIPERACILLIN/TAZOBACTAM 4.5 GM in DEXTROSE 5% 100 ML IV SCH ×3 (05:18→21:19)
[2020-12-24 06:27] LABS: Basophils # (auto) 0.01 K/uL (0-0.2); Basophils % (auto) 0.2 %; Hematocrit (blood only) 37.1 % (42-52); Hemoglobin 13.1 g/dL (14.0-18.0); Lymphocytes # (auto) 0.99 K/uL (1.2-3.4); Mean Corpuscular Hemoglobin 30.8 pg (25-34); Mean Corpuscular Hgb Conc 35.3 g/dL (32-36); Mean Corpuscular Volume 87.1 fL (80-100); Mean Platelet Volume 9.6 fL (7.4-10.4); Monocytes % (auto) 12.1 %; Neutrophils # (auto) 3.26 K/uL (1.4-6.5); Neutrophils % (auto) 65.7 %; Platelet Count 143 K/uL (130-400); RDW Coefficient of Variation 14.7 % (11.5-14.5); RDW Standard Deviation 46.8 fL (36.4-46.3); Red Blood Count 4.26 M/uL (4.7-6.1); White Blood Count 4.96 K/uL (4.8-10.8)
[2020-12-24 07:04] LABS: Albumin Globulin Ratio 0.7 (0.9-2); Albumin Level 2.9 gm/dl (3.4-5.0); Calcium 8.6 mg/dl (8.5-10.1); Creatinine Clr Calc Pharmacy 97.7 ml/min; Est GFR (African American) 96.7; Est GFR (Non-African American) 83.5; Globulin 4.3 gm/dl (2.5-4.0); Potassium 3.9 mmol/L (3.5-5.1); Total Protein 7.2 gm/dl (6.4-8.2)
--- NOTE | 2020-12-24 07:53 | Anesthesiology Consultation ---
Date of Service December 24, 2020 Covid 19 negative on 12/20/20. Assessment & Plan (1) Encounter for pre-operative examination: Chart Review Chart Review: Acceptable Risk for Surgery and Patient NOT seen in Pre Admission Testing Consults Requested none cardiology and internal medicine are following the patient History Surgery Operation Date: 12/24/20 09:30 Proposed Procedures p Laparoscopic Cholecystectomy with Cholangiogram - Perico Guerrero MD Height/Weight Height: 5 ft 7 in Weight: 131.3 kg Allergies Allergy/AdvReac Type Severity Reaction Status Date / Time No Known Allergies Allergy U Unverified 12/20/20 21:33 Medications Home Medications Medication Instructions Recorded Confirmed Last Taken ibuprofen 200 mg PO Q6H PRN #0 tab 03/11/18 12/20/20 12/20/20 allopurinol 300 mg PO PM 05/24/19 12/20/20 12/20/20 amlodipine 10 mg PO QAM 05/24/19 12/20/20 12/20/20 atorvastatin 80 mg PO PM 05/24/19 12/20/20 12/20/20 clopidogrel 75 mg PO QAM 05/24/19 12/20/20 12/20/20 fluticasone propionate 2 spray INTRANASAL QAM 05/24/19 12/20/20 12/20/20 losartan 100 mg PO QAM 05/24/19 12/20/20 12/20/20 omega 4-pcs-mpj-fish oil [[place]-3] 1 cap PO QAM 05/24/19 12/20/20 12/20/20 pantoprazole 40 mg PO QAM 05/24/19 12/20/20 12/20/20 aspirin [Aspirin Low-Strength] 81 mg PO DAILY 12/20/20 12/20/20 12/20/20 ezetimibe 10 mg PO DAILY 12/20/20 12/20/20 12/20/20 furosemide 40 mg PO DAILY 12/20/20 12/20/20 12/20/20 metformin 500 mg PO BID 12/20/20 12/20/20 12/20/20 propranolol 40 mg PO BID 12/21/20 12/21/20 12/20/20 Active Medications Generic Name Dose Route Start Last Admin Trade Name Freq PRN Reason Stop Dose Admin Acetaminophen 325 mg 12/21/20 01:11 12/23/20 02:39 Acetaminophen 325 Mg Tab PO 01/20/21 01:10 325 mg Q6H PRN Administration Mild Pain Allopurinol 300 mg 12/21/20 21:00 12/23/20 20:44 Allopurinol 300 Mg Tab PO 01/20/21 20:59 300 mg PM COURTNEY Administration Amlodipine Besylate 10 mg 12/21/20 09:00 12/23/20 09:14 Amlodipine Besylate 5 Mg Tab PO 01/20/21 08:59 10 mg QAM COURTNEY Administration Aspirin 81 mg 12/21/20 09:00 12/23/20 09:15 Aspirin 81 Mg Ectab PO 01/20/21 08:59 81 mg DAILY COURTNEY Administration Atorvastatin Calcium 80 mg 12/21/20 21:00 12/23/20 20:43 Atorvastatin 40 Mg Tab PO 01/20/21 20:59 80 mg PM COURTNEY Administration Ezetimibe 10 mg 12/21/20 09:00 12/23/20 09:15 Ezetimibe 10 Mg Tablet PO 01/20/21 08:59 10 mg DAILY COURTNEY Administration Fluticasone Propionate 2 sprays 12/21/20 09:00 12/23/20 09:15 Fluticasone Propionate Na Spr 16 Gm Btl NA 01/20/21 08:59 Not Given QAM COURTNEY Piperacillin Sod/Tazobactam 120 mls @ 30 mls/hr 12/21/20 12:00 12/24/20 05:18 Sod 4.5 gm/ Dextrose IV 12/31/20 11:59 30 mls/hr Q8H COURTNEY Administration Insulin Aspart 0 units 12/21/20 01:30 12/24/20 05:34 Insulin Aspart 100 Units/Ml 3 Ml Pen SC 01/20/21 01:29 Not Given Q6 COURTNEY Losartan Potassium 100 mg 12/21/20 01:35 12/23/20 09:15 Losartan Potassium 50 Mg Tab PO 01/20/21 01:34 100 mg QAM COURTNEY Administration Metoprolol Tartrate 25 mg 12/21/20 09:00 12/23/20 20:43 Metoprolol Tartrate 25 Mg Tab PO 01/20/21 08:59 25 mg BID COURTNEY Administration Pantoprazole Sodium 40 mg 12/21/20 09:00 12/23/20 09:15 Pantoprazole 40 Mg Tab PO 01/20/21 08:59 40 mg QAM COURTNEY Administration Potassium Chloride 20 meq 12/23/20 09:00 12/23/20 20:43 Potassium Chloride Crtab 20 Meq Tabcr PO 01/22/21 08:59 20 meq BID COURTNEY Administration Tramadol HCl 25 - 50 mg 12/21/20 01:11 12/21/20 22:18 Tramadol Hcl 50 Mg Tablet PO 01/20/21 01:10 50 mg Q4H PRN Administration Pain NPO Date Last Intake of Fluids: 12/23/20 Time Last Intake of Fluids: 23:59 Date Last Intake of Solids: 12/23/20 Time Last Intake of Solids: 23:59 Past Medical History Medical History CAD (coronary artery disease) Status post drug-eluting stent to the proximal left anterior descending, drug-eluting stent to the mid right coronary artery after rotablation. Residual 100% left circumflex proximal occlusion December 26, 2018 DMII (diabetes mellitus, type 2) GERD (gastroesophageal reflux disease) Gout Hyperlipidemia Hypertension Morbid obesity Obstructive sleep apnea on CPAP Squamous cell carcinoma Past Surgical History Surgical History S/P coronary artery stent placement x's 3 Social History Smoking Status: Never smoker tobacco type: cigarettes Do You Dip or Chew Tobacco: No Hx Alcohol Use: No Hx Substance Use: No Physical Exam Vital Signs Last Vital Signs Temp 37.2 C 12/24/20 07:09 Pulse 98 H 12/24/20 07:09 Resp 18 12/24/20 07:09 BP 136/86 12/24/20 07:09 Pulse Ox 94 12/24/20 07:09 Testing Laboratory Results 12/24/20 05:57 12/24/20 05:57 PT 10.9 Seconds (9.0-12.0) 12/20/20 21:28 INR 1.1 (0.9-1.1) 12/20/20 21:28 APTT 25.7 Seconds (21.0-31.0) 12/20/20 21:28 Urine Color Dark Yellow 12/21/20 10:15 Urine Appearance Clear (Clear) 12/21/20 10:15 Urine pH 7.5 (4.5-7.5) 12/21/20 10:15 Ur Specific [place] 1.028 (1.000-1.030) 12/21/20 10:15 Urine Protein Negative (Negative) 12/21/20 10:15 Urine Glucose (UA) Negative (Negative) 12/21/20 10:15 Urine Ketones Negative (Negative) 12/21/20 10:15 Urine Nitrite Negative (Negative) 12/21/20 10:15 Ur Leukocyte Esterase Negative (Negative) 12/21/20 10:15 Blood Type O Positive 12/21/20 05:19 Antibody Screen NEGATIVE 12/21/20 05:19 12/22/20 12:00 Aerobic Blood Culture - Preliminary Blood No growth in Aerobic bottle after 24 hours. Anaerobic Blood Culture - Preliminary No growth in Anaerobic bottle after 24 hours. 12/22/20 12:07 Aerobic Blood Culture - Preliminary Blood No growth in Aerobic bottle after 24 hours. Anaerobic Blood Culture - Preliminary No growth in Anaerobic bottle after 24 hours. 12/21/20 07:09 Aerobic Blood Culture - Final Blood Escherichia coli Anaerobic Blood Culture - Final Escherichia coli 12/21/20 07:04 Aerobic Blood Culture - Final Blood Escherichia coli Anaerobic Blood Culture - Final Escherichia coli 12/24/20 12/23/20 12/23/20 05:22 23:59 20:40 POC Glucose 132 H 113 H 101 H Electrocardiogram Date: 12/20/20 Findings: + NSR @ (63) Chest X-Ray Date: 12/23/20 XR chest 1V portable HISTORY: Shortness of breath. COMPARISON: Chest 12/20/2020. FINDINGS: The cardiac silhouette remains mildly enlarged. No pleural effusions. No pneumothorax. No new focal lung consolidations to suggest pneumonia. No evidence for pulmonary edema. IMPRESSION: No acute process. ACT 112: Negative or not required by law. Electronically signed by: Kevin Lobato M.D. 12/23/2020 7:55 AM Dictated: 12/23/20 [id number]
[2020-12-24] MEDS: POTASSIUM CHLORIDE CRTAB 20 MEQ TABCR PO SCH ×2 (08:52→21:19)
[2020-12-24] MEDS: EZETIMIBE 10 MG TABLET PO SCH (08:52)
[2020-12-24] MEDS: FLUTICASONE PROPIONATE NA SPR 16 GM BTL SCH (08:52)
[2020-12-24] MEDS: amLODIPine BESYLATE 5 MG TAB PO SCH (08:52)
[2020-12-24] MEDS: LOSARTAN POTASSIUM 50 MG TAB PO SCH (08:52)
[2020-12-24] MEDS: METOPROLOL TARTRATE 25 MG TAB PO SCH ×2 (08:52→21:19)
[2020-12-24] MEDS: ASPIRIN 81 MG ECTAB PO SCH (08:52)
[2020-12-24] MEDS: PANTOprazole 40 MG TAB PO SCH (08:52)
[2020-12-24] MEDS ORDERED: PROPOFOL IV EMULSION 10 MG/ML 20 ML VIAL IV ONE (10:12)
[2020-12-24] MEDS ORDERED: ONDANSETRON INJ 2 MG/ML 2 ML VIAL ONE (10:12)
[2020-12-24] MEDS ORDERED: fentaNYL citrate 100 MCG/2 ML VIAL ONE ×2 (10:12→12:06)
[2020-12-24] MEDS ORDERED: LIDOCAINE 2% 2 ML VIAL/AMP(20MG/ML) INFIL ONE (10:12)
[2020-12-24] MEDS ORDERED: ATROPINE SULFATE 0.1 MG/ML 10ML SYR IV PRN (10:35)
[2020-12-24] MEDS ORDERED: PHENYLEPHRINE 100MCG/ML 5ML SYR IV PRN (10:35)
[2020-12-24] MEDS ORDERED: ONDANSETRON INJ 2 MG/ML 2 ML VIAL IV PRN (10:35)
[2020-12-24] MEDS ORDERED: ePHEDrine sulfate 50 MG/ML AMP IV PRN (10:35)
[2020-12-24] MEDS ORDERED: MEPERIDINE HCL 25 MG/ML CARP/VIAL IV PRN (10:35)
[2020-12-24] MEDS ORDERED: HYDROmorphone INJ 1 MG/ML SYRINGE IV PRN (10:35)
[2020-12-24] MEDS ORDERED: fentaNYL citrate 100 MCG/2 ML VIAL IV PRN (10:35)
[2020-12-24] MEDS ORDERED: LABETALOL HCL IV 5 MG/ML 20ML IV PRN (10:35)
[2020-12-24] MEDS ORDERED: ROCURONIUM BROMIDE 10 MG/ML 5 ML VIAL IV ONE (10:36)
--- NOTE | 2020-12-24 10:41 | Hospitalist Progress Note ---
Date of Service December 24, 2020 Assessment & Plan (1) Acute pancreatitis: Overall patient is doing okay. Pain is currently well controlled. No evidence of any gallstones. Annette n.p.o., plans to go to the OR today. Cultures positive for gram-negative bacteremia. We will continue Zosyn. Repeat blood cultures negative thus far. Will likely need 2 weeks of antibiotic therapy. Continue holding Plavix for now, likely to be resumed post surgery. (2) Transaminitis: HIDA scan negative for any infection. LFTs continue to improve. (3) Hypertension: Likely in the setting of pain as well. Can have hydralazine as needed for systolic blood pressure greater than 180. Cont amlodipine 10 mg and Cozaar 100 mg daily per home regimen. Cont holding Lasix 40mg daily for now to avoid dehydration in setting of acute pancreatitis. (4) Hyperlipidemia: Continue Lipitor and Zetia per home regimen. (5) DMII (diabetes mellitus, type 2): Currently euglycemic. Continue insulin therapy while patient is hospitalized. (6) Morbid obesity: (7) CAD (coronary artery disease): Appreciate cardiology input. Continue holding Plavix for now. To be resumed after surgery. (8) DVT prophylaxis: Lovenox Full Dispo-to home when medically stable. Admission and Anticipated Discharge Date Admission Date: December 20, 2020 Subjective Patient is doing okay this morning. Review of system is negative. Currently remains n.p.o. and awaiting to go to the OR. Hemodynamically doing fine. Review of Systems Review of Systems: All systems reviewed & are unremarkable except as noted in HPI & below Physical Exam Physical Exam: General: A&Ox3 HENT: NCAT, MMM, EOMI Eyes: PERRLA Neck: Supple, normal range of motion CVS: normal rate and rhythm Resp: b/l good breath sounds Abdomen: Soft, nondistended nontender Extremities: No c/c/e Neuro: face symmetric, strength grossly equal, no focal deficit Skin: warm and dry, no rashes/lesions/errythema MSK: normal ROM, no joint swelling/erythema Results & Data Results & Data ([facility]) Vital Signs (Past 12 Hours) Vital Signs Temp Pulse Pulse Resp BP BP Pulse Ox 12/24/20 10:11 36.9 C 72 20 133/71 97 12/24/20 07:54 97 H 12/24/20 07:09 37.2 C 98 H 18 136/86 94 12/24/20 03:03 37 C 88 18 151/77 H 94 12/24/20 00:00 66 12/23/20 23:12 37 C 94 H 16 160/80 H 95 (1) Acute pancreatitis Acute pancreatitis complication: unspecified Pancreatitis type: unspecified pancreatitis type Qualified Code(s): K85.90 - Acute pancreatitis without necrosis or infection, unspecified
[2020-12-24] MEDS ORDERED: SUCCINYLCHOLINE 100MG/5ML SYR IV ONE (10:54)
--- NOTE | 2020-12-24 11:08 | History & Physical Bridge Note ---
Date of Service December 24, 2020 History & Physical Bridge Note I have examined the patient, reviewed the History & Physical and in the interval since the performance of the History & Physical I have noted the following changes of clinical significance: no changes noted all question answered feels better than yesterday less abd pain abd soft will proceed with katie luna possible open permit signed
[2020-12-24] MEDS ORDERED: LIDOCAINE 1% LOCAL 20 ML VIAL ONE (11:27)
[2020-12-24] MEDS ORDERED: HYDROmorphone INJ 1 MG/ML SYRINGE ONE (12:16)
[2020-12-24] MEDS ORDERED: GLYCOPYRROLATE 0.2 MG/ML VIAL ONE (12:51)
[2020-12-24] MEDS ORDERED: NEOSTIGMINE METHYLSULFATE 5 MG/5 ML SYR ONE (12:51)
[2020-12-24] MEDS: LIDOCAINE/EPINEPHRINE 1% 20 ML VIAL ONE ×2 (12:53→15:31)
--- NOTE | 2020-12-24 12:58 | Post Operative Brief Note ---
PG Immediate Post Op with CF Date of Surgery December 24, 2020 Pre & Post Diagnosis Operation Date: 12/24/20 09:30 Pre-Op Diagnosis: Acute pancreatitis Post-Op Diagnosis: Acute pancreatitis I identified the patient and participated in the time-out.: Yes Procedure Operation Date: 12/24/20 09:30 Actual Procedures p Laparoscopic Cholecystectomy with Cholangiogram(Not Applicable) - Perico Guerrero MD Surgeon Perico Guerrero MD Doll Wigs Hackler joseph puga Estimated Blood Loss 10 Findings Consistent with Post-Op Diagnosis Specimens Specimen Description: A. Gallbladder and Contents
[2020-12-24] MEDS ORDERED: OPTIRAY 300 IV ONE (13:09)
--- NOTE | 2020-12-24 13:09 | Operative Report ---
PG Post Operative Report Pre & Post Diagnosis Operation Date: 12/24/20 09:30 Pre-Op Diagnosis: Acute pancreatitis Post-Op Diagnosis: Acute pancreatitis I identified the patient and participated in the time-out.: Yes Procedure Operation Date: 12/24/20 09:30 Actual Procedures p Laparoscopic Cholecystectomy with Cholangiogram(Not Applicable) - Perico Guerrero MD The patient was brought into the operating theater general trach anesthesia the abdomen was prepped Betadine solution properly draped systemic antibiotics were already on board patient identified a timeout was had made a small incision approximately 2 inches above the umbilicus where he had a local hernia we try to stay away from that into the abdomen with a Veress needle followed by CO2 fall pressure in the 11 the patient pressure intra-abdominal pressures were 1416 so for more analgesic was given we then placed the patient in reverse Trendelenburg position rotated to the left and direct visualization we placed a 5 mm epigastric and 2 5 mm subcostal trochars with preemptive local analgesia of 0.5% Marcaine the gallbladder was easily appreciated wall was edematous we grabbed it sufficient enough to place an aspirating needle where we decompressed it the contents were dark yellow bile. We then placed the gallbladder traction using mostly blunt dissection we went down and identified the cystic duct as it took off from the gallbladder. At this point we were fairly close what I thought was the common bile duct proximally and inches or away at most therefore we clamped the cystic duct at its takeoff #4 urethral catheter was positioned cystic duct after transversing abdominal wall and a 14 Angiocath once we opened the cystic duct there was some yellowish bile came out no real contents came out the place the catheter and took series x-rays initially look like and some debris in the distal common bile duct since the patient has had pancreatitis most likely certa inly could have been some sludge even though the MRCP did not show any significant cholelithiasis we at this point elected to give 1 mg of glucagon to relax the sphincter irrigated the common bile duct with normal saline solution and then were able to take 2 more x-rays which showed no further impeding good flow into the duodenum where initial x-rays did not show any flow into the duodenum results were happy the cystic catheter was removed and the cystic duct was doubly clipped and divided securely gallbladder removed in antegrade fashion after identifying the artery doubly clipped proximally once distally and divided the gallbladder was taken off the liver prior to freeing the liver we checked the posterior peritoneum the way left mostly intact a few bleeders were controlled the gallbladder was placed in an Endopouch and taken out intact through the epigastric port subhepatic suprahepatic area was then checked hemostasis appear quite satisfactory we then placed the camera right upper quadrant port and actually visualize the initial entry on the dual in the supraumbilical area the patient had some omentum adhered to the and umbilical hernia although we were away from it with direct trocar. Individual trochars were taken out on direct visualization last umbilical trocar wounds were closed with 4-0 Monocryl Steri-Strips applied procedure was tolerated well patient estimated blood loss 10 cc cultures were gallbladder contents were addendum Christina Gustafson physician vet assistant was present throughout the case exposure helped with exposure traction and wound closure Surgeon Perico Guerrero MD Director Safety joseph puga Estimated Blood Loss 10 Findings Consistent with Post-Op Diagnosis Specimens gallbladder and contents Description of Procedure merda I attest to the content of the Intraoperative Record and any orders documented therein. Any exceptions are noted below.
--- NOTE | 2020-12-24 13:30 | Fluoroscopy Report ---
[place] cholangiogram OR CLINICAL HISTORY: Intraoperative cholangiogram. COMPARISON STUDY: MRCP and right upper quadrant ultrasound December 21, 2020. FLUOROSCOPY TIME: 6 seconds. FLUOROSCOPIC IMAGES: 6 FINDINGS: There is no biliary ductal dilatation. There is opacification of the duodenum. No filling d efects are identified on this examination to suggest choledocholithiasis. The intrahepatic bile ducts are partially imaged on this exam. There is an apparent tiny left lateral outpouching of the distal common bile duct. IMPRESSION: No evidence for choledocholithiasis. ACT 112: Negative or not required by law. Electronically signed by: Sudhir Ansari M.D. 12/24/2020 1:29 PM
--- NOTE | 2020-12-24 14:33 | Anesthesiology Progress Note ---
Date of Service December 24, 2020 Anesthesia Post Procedure Vital Signs Vital Signs: Temp Pulse Pulse Pulse Resp BP BP 12/24/20 14:20 55 L 17 158/75 H 12/24/20 14:10 57 L 15 156/75 H 12/24/20 14:00 36.4 C L 55 L 17 152/76 H 12/24/20 13:50 55 L 15 153/74 H 12/24/20 13:40 62 16 149/97 H 12/24/20 13:30 67 20 168/82 H 12/24/20 13:25 36.8 C 73 20 173/82 H 12/24/20 10:11 36.9 C 72 20 133/71 12/24/20 07:54 97 H 12/24/20 07:09 37.2 C 98 H 18 136/86 12/24/20 03:03 37 C 88 18 151/77 H 12/24/20 00:00 66 12/23/20 23:12 37 C 94 H 16 160/80 H 12/23/20 19:28 36.8 C 71 18 149/73 H 12/23/20 15:38 84 12/23/20 15:37 36.7 C 67 18 143/66 H Pulse Ox 12/24/20 14:20 95 12/24/20 14:10 94 12/24/20 14:00 95 12/24/20 13:50 95 12/24/20 13:40 98 12/24/20 13:30 98 12/24/20 13:25 98 12/24/20 10:11 97 12/24/20 07:54 12/24/20 07:09 94 12/24/20 03:03 94 12/24/20 00:00 12/23/20 23:12 95 12/23/20 19:28 94 12/23/20 15:38 12/23/20 15:37 94 Pain Intensity Abdomen: Pain Intensity: 0 Transfer of Care Handoff Completed per policy Notes Mental Status: alert / awake / arousable Patient Amnestic to Procedure: Yes Nausea / Vomiting: adequately controlled Pain: adequately controlled Airway Patency, RR, SpO2: stable & adequate BP & HR: stable & adequate Hydration State: stable & adequate Anesthetic Complications: no major complications apparent and Pt Satisfied with anesthetic care
[2020-12-24] MEDS ORDERED: MoRPHine SULFATE 2 MG/ML CARP IV PRN (14:44)
[2020-12-24] MEDS ORDERED: MoRPHine SULFATE 4 MG/ML 1 ML CARP\\VIAL IV PRN (14:44)
[2020-12-24] MEDS ORDERED: Nursing to Pharmacy Communication SCH (15:30)
[2020-12-24] MEDS ORDERED: NURSING DECISION MEDICATION ONE (17:09)
[2020-12-24] MEDS ORDERED: COUGH DROP (SUGAR FREE) LOZ 24 LOZ/1 BOX BUCCAL PRN (17:13)
[2020-12-24] MEDS: ATORVASTATIN 40 MG TAB PO SCH (21:19)
[2020-12-24] MEDS: allopurinoL 300 MG TAB PO SCH (21:20)
[2020-12-25] MEDS: PIPERACILLIN/TAZOBACTAM 4.5 GM in DEXTROSE 5% 100 ML IV SCH (05:16)
--- NOTE | 2020-12-25 06:53 | Surgery Progress Note ---
Date of Service December 25, 2020 Assessment & Plan (1) Cholecystectomy planned: Intraoperative findings were discussed with the patient We will start the patient on a diet repeat his laboratories CBC and differential PRP liver function tests lipase He can restart clopidogrel tomorrow and discharged when okay with the primary service Present on Admission?: Yes Admission and Anticipated Discharge Date Admission Date: December 20, 2020 Subjective Feels fine overall sitting at side of bed care taker ankle on his leg is giving the most discomfort He tolerated some liquids last night Physical Exam Physical Exam: Alert coherent comfortable no distress Trocar sites are healing fine the abdomen is benign Results & Data ([facility]) Vital Signs (Past 12 Hours) Vital Signs Temp Pulse Pulse Resp BP Pulse Ox 12/25/20 04:05 37.2 C 64 18 154/72 H 92 12/25/20 01:22 60 12/24/20 22:55 37.0 C 63 18 109/46 L 94 12/24/20 19:20 36.7 C 60 18 153/80 H 96 PG Care Time/CCT Total # of Minutes Spent Total Time Spent with Patient: Total time spent is greater than 50% in coordination of care (as documented) at patient's floor/unit and/or counseling patient: Coding Level of Care Code None Diagnoses Cholecystectomy planned
[2020-12-25 07:07] LABS: Basophils # (auto) 0.01 K/uL (0-0.2); Basophils % (auto) 0.1 %; Eosinophils # (auto) 0.16 K/uL (0-0.5); Eosinophils % (auto) 2.3 %; Hematocrit (blood only) 38.1 % (42-52); Hemoglobin 12.8 g/dL (14.0-18.0); Lymphocytes # (auto) 1.19 K/uL (1.2-3.4); Mean Corpuscular Hemoglobin 29.4 pg (25-34); Mean Corpuscular Hgb Conc 33.6 g/dL (32-36); Mean Corpuscular Volume 87.6 fL (80-100); Mean Platelet Volume 9.5 fL (7.4-10.4); Monocytes # (auto) 0.87 K/uL (0.11-0.59); Monocytes % (auto) 12.4 %; Neutrophils # (auto) 4.78 K/uL (1.4-6.5); Neutrophils % (auto) 68.2 %; Platelet Count 160 K/uL (130-400); RDW Coefficient of Variation 14.6 % (11.5-14.5); RDW Standard Deviation 47.2 fL (36.4-46.3); Red Blood Count 4.35 M/uL (4.7-6.1); White Blood Count 7.01 K/uL (4.8-10.8)
[2020-12-25 07:42] LABS: Albumin Level 3.2 gm/dl (3.4-5.0); BUN Creatinine Ratio 10.8 (10-20); Bilirubin Direct 0.5 mg/dl (0-0.2); Calcium 8.9 mg/dl (8.5-10.1); Creatinine Clr Calc Pharmacy 84.4 ml/min; Est GFR (African American) 80.7; Est GFR (Non-African American) 69.7; Potassium 4.2 mmol/L (3.5-5.1)
[2020-12-25 07:44] LABS: Bilirubin,Total 0.9 mg/dl (0.2-1); Total Protein 7.6 gm/dl (6.4-8.2)
[2020-12-25] MEDS: amLODIPine BESYLATE 5 MG TAB PO SCH (08:14)
[2020-12-25] MEDS: PANTOprazole 40 MG TAB PO SCH (08:14)
[2020-12-25] MEDS: LOSARTAN POTASSIUM 50 MG TAB PO SCH (08:14)
[2020-12-25] MEDS: FLUTICASONE PROPIONATE NA SPR 16 GM BTL SCH (08:14)
[2020-12-25] MEDS: ASPIRIN 81 MG ECTAB PO SCH (08:14)
[2020-12-25] MEDS: INSULIN ASPART 100 UNITS/ML 3 ML PEN SC SCH ×4 (08:14→20:26)
[2020-12-25] MEDS: METOPROLOL TARTRATE 25 MG TAB PO SCH ×2 (08:15→20:31)
[2020-12-25] MEDS: POTASSIUM CHLORIDE CRTAB 20 MEQ TABCR PO SCH (08:15)
[2020-12-25] MEDS: EZETIMIBE 10 MG TABLET PO SCH (08:15)
--- NOTE | 2020-12-25 08:25 | Anesthesiology Progress Note ---
Date of Service December 25, 2020 Anesthesia Post Procedure Vital Signs Vital Signs: Temp Pulse Pulse Pulse Pulse Resp BP 12/25/20 07:23 37.0 C 61 16 159/77 H 12/25/20 04:05 37.2 C 64 18 154/72 H 12/25/20 01:22 60 12/24/20 22:55 37.0 C 63 18 109/46 L 12/24/20 19:20 36.7 C 60 18 153/80 H 12/24/20 16:29 36.4 C L 54 L 18 148/79 H 12/24/20 16:07 36.7 C 64 18 164/79 H 12/24/20 16:00 60 12/24/20 15:23 36.4 C L 54 L 18 149/83 H 12/24/20 15:15 36.4 C L 54 L 18 154/82 H 12/24/20 14:51 36.5 C 55 L 18 158/86 H 12/24/20 14:20 55 L 17 158/75 H 12/24/20 14:10 57 L 15 156/75 H 12/24/20 14:00 36.4 C L 55 L 17 152/76 H 12/24/20 13:50 55 L 15 153/74 H 12/24/20 13:40 62 16 149/97 H 12/24/20 13:30 67 20 168/82 H 12/24/20 13:25 36.8 C 73 20 173/82 H 12/24/20 10:11 36.9 C 72 20 133/71 Pulse Ox 12/25/20 07:23 94 12/25/20 04:05 92 12/25/20 01:22 12/24/20 22:55 94 12/24/20 19:20 96 12/24/20 16:29 96 12/24/20 16:07 96 12/24/20 16:00 12/24/20 15:23 97 12/24/20 15:15 95 12/24/20 14:51 95 12/24/20 14:20 95 12/24/20 14:10 94 12/24/20 14:00 95 12/24/20 13:50 95 12/24/20 13:40 98 12/24/20 13:30 98 12/24/20 13:25 98 12/24/20 10:11 97 Pain Intensity Abdomen: Pain Intensity: 0 Notes Mental Status: alert / awake / arousable and participated in evaluation Patient Amnestic to Procedure: Yes Nausea / Vomiting: see Notes below Pain: adequately controlled Airway Patency, RR, SpO2: stable & adequate BP & HR: stable & adequate Hydration State: stable & adequate Anesthetic Complications: no major complications apparent and Pt Satisfied with anesthetic care
--- NOTE | 2020-12-25 11:43 | Hospitalist Progress Note ---
Date of Service December 25, 2020 Assessment & Plan (1) Acute pancreatitis: Overall patient is doing okay. Pain is currently well controlled. No evidence of any gallstones. Annette n.p.o., plans to go to the OR today. Cultures positive for gram-negative bacteremia. We will continue Zosyn. Repeat blood cultures negative thus far. Will likely need 2 weeks of antibiotic therapy. Continue holding Plavix for now, likely to be resumed post surgery. (2) Transaminitis: HIDA scan negative for any infection. LFTs continue to improve. (3) Hypertension: Likely in the setting of pain as well. Can have hydralazine as needed for systolic blood pressure greater than 180. Cont amlodipine 10 mg and Cozaar 100 mg daily per home regimen. Cont holding Lasix 40mg daily for now to avoid dehydration in setting of acute pancreatitis. (4) Hyperlipidemia: Continue Lipitor and Zetia per home regimen. (5) DMII (diabetes mellitus, type 2): Currently euglycemic. Continue insulin therapy while patient is hospitalized. (6) Morbid obesity: (7) CAD (coronary artery disease): Appreciate cardiology input. Continue holding Plavix for now. To be resumed after surgery. (8) DVT prophylaxis: Lovenox Full Dispo-to home when medically stable. Admission and Anticipated Discharge Date Admission Date: December 20, 2020 Results & Data Results & Data ([facility]) Vital Signs (Past 12 Hours) Vital Signs Temp Pulse Pulse Resp BP Pulse Ox 12/25/20 11:24 36.6 C 63 16 147/77 H 93 12/25/20 08:35 61 12/25/20 07:23 37.0 C 61 16 159/77 H 94 12/25/20 04:05 37.2 C 64 18 154/72 H 92 12/25/20 01:22 60 (1) Acute pancreatitis Acute pancreatitis complication: unspecified Pancreatitis type: unspecified pancreatitis type Qualified Code(s): K85.90 - Acute pancreatitis without necrosis or infection, unspecified
--- NOTE | 2020-12-25 11:50 | Hospitalist Progress Note ---
Date of Service December 25, 2020 Assessment & Plan (1) Acute pancreatitis: Likely secondary to sludge in the duct system without any evidence of stones Overall patient is doing okay Lipase level has improved to normal Gram-negative bacteremia Cultures positive for gram-negative bacteremia. Has been on Zosyn Zosyn. Repeat blood cultures negative thus far. Will likely need 2 weeks of antibiotic therapy. We will change antibiotic to oral Cipro and continue for a total of 2 weeks Acute cholecystitis Noted to have distended gallbladder with sludge without any evidence of gallstones or choledocholithiasis Appreciate GI input and recommendation Appreciate surgery input Status post laparoscopic cholecystectomy 12/24/20 He has been doing much better as of today and wants to go home (2) Transaminitis: HIDA scan negative for any infection. LFTs continue to improve. (3) Hypertension: Likely in the setting of pain as well. Can have hydralazine as needed for systolic blood pressure greater than 180. Cont amlodipine 10 mg and Cozaar 100 mg daily per home regimen. Cont holding Lasix 40mg daily for now to avoid dehydration in setting of acute pancreatitis. Appreciate cardiology input and recommendation (4) Hyperlipidemia: Continue Lipitor and Zetia per home regimen. (5) DMII (diabetes mellitus, type 2): Currently euglycemic. Continue insulin therapy while patient is hospitalized. (6) Morbid obesity: (7) CAD (coronary artery disease): Appreciate cardiology input. Continue holding Plavix for now. We will restart Plavix. (8) DVT prophylaxis: Lovenox Full Dispo-to home when medically stable. Like to be discharged today Admission and Anticipated Discharge Date Admission Date: December 20, 2020 Subjective 12/25/2020 The patient was seen and examined in medical telemetry unit He is a status post laparoscopic cholecystectomy on 12/24/2020 Has been feeling a lot better with minimal pain in the abdomen He has been tolerating regular diet and ambulating in the room without any difficulties He wants to go home today Review of Systems Review of Systems: All systems reviewed and are unremarkable except as noted below Gastrointestinal: + abdominal pain; no nausea and no vomiting Physical Exam Physical Exam: Sitting on a chair without any acute symptoms Constitutional: well developed, well nourished and + obese; not ill appearing Eyes: PERRL, conjunctivae normal, anicteric sclerae ENMT: external ear and nose normal, oropharynx normal Neck: trachea midline, no thyromegaly Respiratory: no respiratory distress Auscultation: lungs clear to auscultation bilaterally Cardiovascular: Rate/Rhythm: regular rate and regular rhythm Heart Sounds: no murmur Extremities: + edema (Trace to 1+ edema bilaterally) Gastrointestinal (Abdomen): Inspection/Auscultation: + abdomen distended and normal bowel sounds Percussion/Palpation: + abdomen tender and abdomen soft Musculoskeletal: No acute arthritis in any joint Neurologic: Alert, awake and oriented x3 Psychiatric: A+Ox3, euthymic affect Lymphatic: no cervical or axillary lymphadenopathy Results & Data Results & Data ([facility]) Vital Signs (Past 12 Hours) Vital Signs Temp Pulse Pulse Resp BP Pulse Ox 12/25/20 11:24 36.6 C 63 16 147/77 H 93 12/25/20 08:35 61 12/25/20 07:23 37.0 C 61 16 159/77 H 94 12/25/20 04:05 37.2 C 64 18 154/72 H 92 12/25/20 01:22 60 Laboratory Results Short CBC 12/25/20 Range/Units 06:57 WBC 7.01 (4.8-10.8) K/uL Hgb 12.8 L (14.0-18.0) g/dL Hct 38.1 L (42-52) % Plt Count 160 (130-400) K/uL BMP 12/25/20 06:57 Sodium 141 Potassium 4.2 Chloride 107 Carbon Dioxide 27 BUN 12 Creatinine 1.08 Glucose 104 H Calcium 8.9 Liver Function 12/25/20 Range/Units 06:57 Total Bilirubin 0.9 (0.2-1) mg/dl Direct Bilirubin 0.5 H (0-0.2) mg/dl AST 70 H (15-37) U/L ALT 140 H (12-78) U/L Alkaline Phosphatase 136 H (45-117) U/L Albumin 3.2 L (3.4-5.0) gm/dl Medications Administered Current Inpatient Medications Acetaminophen (Acetaminophen 325 Mg Tab) 325 mg PO Q6H PRN PRN Reason: Mild Pain Stop: 01/20/21 01:10 Last Admin: 12/23/20 02:39 Dose: 325 mg Documented by: Allopurinol (Allopurinol 300 Mg Tab) 300 mg PO PM [facility] Stop: 01/20/21 20:59 Last Admin: 12/24/20 21:20 Dose: 300 mg Documented by: Amlodipine Besylate (Amlodipine Besylate 5 Mg Tab) 10 mg PO QAM [facility] Stop: 01/20/21 08:59 Last Admin: 12/25/20 08:14 Dose: 10 mg Documented by: Aspirin (Aspirin 81 Mg Ectab) 81 mg PO DAILY [facility] Stop: 01/20/21 08:59 Last Admin: 12/25/20 08:14 Dose: 81 mg Documented by: Atorvastatin Calcium (Atorvastatin 40 Mg Tab) 80 mg PO PM [facility] Stop: 01/20/21 20:59 Last Admin: 12/24/20 21:19 Dose: 80 mg Documented by: Ciprofloxacin (Ciprofloxacin 500 Mg Tab) 500 mg PO BID [facility]; Protocol Stop: 01/08/21 11:59 Dextrose (Dextrose 50% 50 Ml Syringe) 25 - 50 ml IV UD PRN; Protocol PRN Reason: Hypoglycemia Protocol Stop: 01/20/21 01:10 Ezetimibe (Ezetimibe 10 Mg Tablet) 10 mg PO DAILY [facility] Stop: 01/20/21 08:59 Last Admin: 12/25/20 08:15 Dose: 10 mg Documented by: Fluticasone Propionate (Fluticasone Propionate Na Spr 16 Gm Btl) 2 sprays NA [facility] Stop: 01/20/21 08:59 Last Admin: 12/25/20 08:14 Dose: Not Given Documented by: Glucagon (Glucagon For Inj 1 Mg Vial) 1 mg SQ UD PRN; Protocol PRN Reason: Hypoglycemia Protocol Stop: 01/20/21 01:10 Glucose (Glucose 10 Tabs/Tube) 4 - 8 tabs PO UD PRN; Protocol PRN Reason: Hypoglycemia Protocol Stop: 01/20/21 01:10 Glucose (Glucose 40% Gel 15 Gm Tube) 15 - 30 gm PO UD PRN; Protocol PRN Reason: Hypoglycemia Protocol Stop: 01/20/21 01:10 Hydralazine HCl (Hydralazine Hcl 20 Mg/Ml Vial) 10 mg IV Q6H PRN PRN Reason: hypertension SBP>180 Stop: 01/22/21 12:56 Promethazine HCl 12.5 mg/ (Sodium Chloride) 50.5 mls @ 202 mls/hr IV Q6H PRN PRN Reason: Nausea And Vomiting Stop: 01/20/21 01:10 Lorazepam (Ativan) 0.25 mg in 0.5 mls @ 0.5 mls/min IV Q4H PRN PRN Reason: Anxiety Stop: 01/20/21 01:10 Insulin Aspart (Insulin Aspart 100 Units/Ml 3 Ml Pen) 0 units SC ACHS [facility] Stop: 01/23/21 16:29 Last Admin: 12/25/20 08:14 Dose: Not Given Documented by: Losartan Potassium (Losartan Potassium 50 Mg Tab) 100 mg PO QAM [facility] Stop: 01/20/21 01:34 Last Admin: 12/25/20 08:14 Dose: 100 mg Documented by: Menthol (Cough Drop (Sugar Free) Delroy 24 Delroy/1 Box) 1 delroy BUCCAL PRN PRN PRN Reason: Cough Stop: 01/23/21 17:12 Metoprolol Tartrate (Metoprolol Tartrate 25 Mg Tab) 25 mg PO BID [facility] Stop: 01/20/21 08:59 Last Admin: 12/25/20 08:15 Dose: 25 mg Documented by: Miscellaneous (Carbohydrates For Hypoglycemia ) 15 - 30 gm PO UD PRN PRN Reason: Hypoglycemia Protocol Stop: 01/20/21 01:10 Pantoprazole Sodium (Pantoprazole 40 Mg Tab) 40 mg PO QAM [facility] Stop: 01/20/21 08:59 Last Admin: 12/25/20 08:14 Dose: 40 mg Documented by: Tramadol HCl (Tramadol Hcl 50 Mg Tablet) 25 - 50 mg PO Q4H PRN PRN Reason: Pain Stop: 01/20/21 01:10 Last Admin: 12/21/20 22:18 Dose: 50 mg Documented by: (1) Acute pancreatitis Acute pancreatitis complication: unspecified Pancreatitis type: unspecified pancreatitis type Qualified Code(s): K85.90 - Acute pancreatitis without necrosis or infection, unspecified
[2020-12-25] MEDS: CIPROFLOXACIN 500 MG TAB PO SCH ×2 (12:43→20:31)
[2020-12-25] MEDS ORDERED: cefTRIAXone SODIUM 2,000 MG in DEXTROSE 5% 50 ML IV SCH (13:00)
[2020-12-25] MEDS: allopurinoL 300 MG TAB PO SCH (20:30)
[2020-12-25] MEDS: ATORVASTATIN 40 MG TAB PO SCH (20:31)
[2020-12-26 07:01] LABS: Basophils # (auto) 0.01 K/uL (0-0.2); Basophils % (auto) 0.1 %; Eosinophils # (auto) 0.17 K/uL (0-0.5); Eosinophils % (auto) 2.5 %; Hematocrit (blood only) 37.4 % (42-52); Hemoglobin 12.6 g/dL (14.0-18.0); Immature Granulocytes # (auto) 0.02 K/uL (0.00-0.02); Immature Granulocytes % (auto) 0.3 %; Lymphocytes # (auto) 1.59 K/uL (1.2-3.4); Lymphocytes % (auto) 23.5 %; Mean Corpuscular Hemoglobin 29.3 pg (25-34); Mean Corpuscular Hgb Conc 33.7 g/dL (32-36); Mean Platelet Volume 9.5 fL (7.4-10.4); Monocytes # (auto) 0.74 K/uL (0.11-0.59); Monocytes % (auto) 10.9 %; Neutrophils # (auto) 4.23 K/uL (1.4-6.5); Neutrophils % (auto) 62.7 %; Platelet Count 151 K/uL (130-400); RDW Coefficient of Variation 14.7 % (11.5-14.5); RDW Standard Deviation 46.6 fL (36.4-46.3); White Blood Count 6.76 K/uL (4.8-10.8)
[2020-12-26 07:36] LABS: BUN Creatinine Ratio 13.6 (10-20); Calcium 8.9 mg/dl (8.5-10.1); Creatinine Clr Calc Pharmacy 95.6 ml/min; Est GFR (African American) 95.5; Est GFR (Non-African American) 82.4; Potassium 4.1 mmol/L (3.5-5.1)
[2020-12-26 07:38] LABS: Albumin Globulin Ratio 0.7 (0.9-2); Bilirubin,Total 0.6 mg/dl (0.2-1); Globulin 4.4 gm/dl (2.5-4.0); Total Protein 7.4 gm/dl (6.4-8.2)
[2020-12-26] MEDS: CIPROFLOXACIN 500 MG TAB PO SCH (08:43)
[2020-12-26] MEDS: EZETIMIBE 10 MG TABLET PO SCH (08:43)
[2020-12-26] MEDS: amLODIPine BESYLATE 5 MG TAB PO SCH (08:44)
[2020-12-26] MEDS: PANTOprazole 40 MG TAB PO SCH (08:44)
[2020-12-26] MEDS: LOSARTAN POTASSIUM 50 MG TAB PO SCH (08:44)
[2020-12-26] MEDS: ASPIRIN 81 MG ECTAB PO SCH (08:45)
[2020-12-26] MEDS: FLUTICASONE PROPIONATE NA SPR 16 GM BTL SCH (08:45)
[2020-12-26] MEDS: INSULIN ASPART 100 UNITS/ML 3 ML PEN SC SCH ×2 (08:47→12:31)
[2020-12-26] MEDS: METOPROLOL TARTRATE 25 MG TAB PO SCH (08:48)
--- NOTE | 2020-12-26 09:40 | Surgery Progress Note ---
Date of Service December 26, 2020 Assessment & Plan (1) Cholecystectomy planned: POD 2 lap gloria afebrile, WBC normal, bili normal currently on cipro, repeat cx and GB cx no growth ok for d/c from surgical standpoint, can resume Plavix Admission and Anticipated Discharge Date Admission Date: December 20, 2020 Subjective tolerating diet, minimal pain Physical Exam Gastrointestinal (Abdomen): Inspection/Auscultation: + abdominal surgical incision (clean, dry, steris intact); abdomen not distended Percussion/Palpation: abdomen soft Results & Data ([facility]) Vital Signs (Past 12 Hours) Vital Signs Temp Pulse Pulse Resp BP Pulse Ox 12/26/20 08:00 36.9 C 52 L 19 187/90 H 92 12/26/20 07:10 61 12/26/20 04:13 36.8 C 62 18 143/73 H 94 12/25/20 22:59 64 12/25/20 22:55 36.8 C 62 18 149/71 H 93 PG Care Time/CCT Total # of Minutes Spent Total Time Spent with Patient: Total time spent is greater than 50% in coordination of care (as documented) at patient's floor/unit and/or counseling patient: Coding Level of Care Code None Diagnoses Cholecystectomy planned
[2020-12-26] MEDS ORDERED: LIDOCAINE VISCOUS 2% 15 ML UDC MT PRN (09:56)
[2020-12-26] MEDS ORDERED: TERAZOSIN HCL 1 MG CAP PO ONE (10:30)
--- NOTE | 2020-12-26 12:48 | Cardiology Progress Note ---
Date of Service December 26, 2020 Assessment & Plan (1) Preop cardiovascular exam: (2) Acute pancreatitis: (3) CAD (coronary artery disease): (4) Morbid obesity: (5) Obstructive sleep apnea on CPAP: (6) DMII (diabetes mellitus, type 2): He does carry a history of complex coronary intervention approximately 2 years ago and has been sustained on dual antiplatelet therapy since that time. Given the fact has been 2 years since his intervention I do believe it be reasonable to hold his Plavix in anticipation of any possible upcoming interventional procedures. His aspirin will be continued uninterrupted and Plavix will be restarted once bleeding risk is acceptable. In terms of his preop risk assessment he was counseled that placement is a moderate risk for any adverse perioperative cardiovascular event with his risk being approximately less than 5%. He was further counseled that no further cardiac testing or intervention would further lower that risk. He states he understands, he is accepting of that risk and would wish to proceed with any intervention deemed necessary. He has remained hypertensive in the setting of significant abdominal pain. His outpatient doses of amlodipine, atorvastatin, Zetia, losartan and propanolol should be continued. Consideration could be given to adding p.o. hydralazine as needed as well. Admission and Anticipated Discharge Date Admission Date: December 20, 2020 Subjective Patient seen and examined, chart reviewed. States he is feeling well other than a sore/dry mouth. Denies any cardiac complaints of chest pain, shortness of breath, palpitations, lightheadedness, dizziness or syncope. Telemetry reviewed: Normal sinus rhythm without arrhythmia. Review of Systems Review of Systems: All systems reviewed & are unremarkable except as noted in HPI & below Physical Exam Physical Exam: General: Awake, alert and oriented x 3. No acute distress. HEENT: Normocephalic, atraumatic. Pupils equal, round and reactive to light and accommodation. Extraocular muscles are intact. Anicteric sclera. Moist mucous membranes. Neck: No JVD. No bruit. Cardiovascular: Regular. Positive S-4. Normal S-1 and S-2. No S-3. No murmurs or rubs. Pulmonary: Clear to auscultation B/L. No rales, rhonchi or wheezing Abdomen: Bowel sounds x 4, soft. No rebound, guarding or tenderness. No organomegaly. Extremities: No clubbing, cyanosis or edema. +2 pedal pulses bilaterally. Skin: Warm and dry. Results & Data ([facility]) Vital Signs (Past 12 Hours) Vital Signs Temp Pulse Pulse Resp BP Pulse Ox 12/26/20 11:18 36.9 C 62 18 161/84 H 94 12/26/20 08:00 36.9 C 52 L 19 187/90 H 92 12/26/20 07:10 61 12/26/20 04:13 36.8 C 62 18 143/73 H 94 (1) Acute pancreatitis Acute pancreatitis complication: unspecified Pancreatitis type: unspecified pancreatitis type Qualified Code(s): K85.90 - Acute pancreatitis without necrosis or infection, unspecified
--- NOTE | 2020-12-26 13:11 | Hospitalist Progress Note ---
Date of Service December 26, 2020 Assessment & Plan (1) Acute pancreatitis: Likely secondary to sludge in the duct system without any evidence of stones Overall patient is doing okay Lipase level has improved to normal No acute symptoms Gram-negative bacteremia Cultures positive for gram-negative bacteremia. Has been on Zosyn Zosyn. Repeat blood cultures negative thus far. Will likely need 2 weeks of antibiotic therapy. We will change antibiotic to oral Cipro and continue for a total of 2 weeks Has been tolerating Cipro well and will continue for a total of 2 weeks Acute cholecystitis Noted to have distended gallbladder with sludge without any evidence of gallstones or choledocholithiasis Appreciate GI input and recommendation Appreciate surgery input Status post laparoscopic cholecystectomy 12/24/20 He has been doing much better as of today and wants to go home LFTs have been improving (2) Transaminitis: HIDA scan negative for any infection. LFTs continue to improve. (3) Hypertension: Likely in the setting of pain as well. Can have hydralazine as needed for systolic blood pressure greater than 180. Cont amlodipine 10 mg and Cozaar 100 mg daily per home regimen. Cont holding Lasix 40mg daily for now to avoid dehydration in setting of acute pancreatitis. Appreciate cardiology input and recommendation Terazosin has been restarted (4) Hyperlipidemia: Continue Lipitor and Zetia per home regimen. (5) DMII (diabetes mellitus, type 2): Currently euglycemic. Continue insulin therapy while patient is hospitalized. (6) Morbid obesity: (7) CAD (coronary artery disease): Appreciate cardiology input. Continue holding Plavix for now. We will restart Plavix. (8) DVT prophylaxis: Lovenox Full Dispo-to home when medically stable. Like to be discharged today Admission and Anticipated Discharge Date Admission Date: December 20, 2020 Subjective 12/25/2020 The patient was seen and examined in medical telemetry unit He is a status post laparoscopic cholecystectomy on 12/24/2020 Has been feeling a lot better with minimal pain in the abdomen He has been tolerating regular diet and ambulating in the room without any difficulties He wants to go home today 12/26/2020 The patient was seen and examined in medical telemetry unit He complains to have some sore mouth but otherwise remains asymptomatic He was noted to have a high blood pressure but with medication that has come down He will be discharged home this afternoon Review of Systems Review of Systems: All systems reviewed and are unremarkable except as noted below Gastrointestinal: + abdominal pain; no nausea and no vomiting Physical Exam Physical Exam: Sitting on a chair without any acute symptoms Constitutional: well developed, well nourished and + obese; not ill appearing Eyes: PERRL, conjunctivae normal, anicteric sclerae ENMT: external ear and nose normal, oropharynx normal Neck: trachea midline, no thyromegaly Respiratory: no respiratory distress Auscultation: lungs clear to auscultation bilaterally Cardiovascular: Rate/Rhythm: regular rate and regular rhythm Heart Sounds: no murmur Extremities: + edema (Trace to 1+ edema bilaterally) Gastrointestinal (Abdomen): Inspection/Auscultation: + abdomen distended and normal bowel sounds Percussion/Palpation: + abdomen tender and abdomen soft Musculoskeletal: No acute distress at rest Neurologic: Alert, awake and oriented x3. No focal sensory and motor deficit appreciated Psychiatric: A+Ox3, euthymic affect Lymphatic: no cervical or axillary lymphadenopathy Results & Data Results & Data ([facility]) Vital Signs (Past 12 Hours) Vital Signs Temp Pulse Pulse Resp BP Pulse Ox 12/26/20 11:18 36.9 C 62 18 161/84 H 94 12/26/20 08:00 36.9 C 52 L 19 187/90 H 92 12/26/20 07:10 61 12/26/20 04:13 36.8 C 62 18 143/73 H 94 Laboratory Results Short CBC 12/26/20 Range/Units 06:32 WBC 6.76 (4.8-10.8) K/uL Hgb 12.6 L (14.0-18.0) g/dL Hct 37.4 L (42-52) % Plt Count 151 (130-400) K/uL BMP 12/26/20 06:32 Sodium 142 Potassium 4.1 Chloride 110 H Carbon Dioxide 24 BUN 13 Creatinine 0.94 Glucose 108 H Calcium 8.9 Liver Function 12/26/20 Range/Units 06:32 Total Bilirubin 0.6 (0.2-1) mg/dl AST 49 H (15-37) U/L ALT 109 H (12-78) U/L Alkaline Phosphatase 118 H (45-117) U/L Albumin 3.0 L (3.4-5.0) gm/dl Medications Administered Current Inpatient Medications Acetaminophen (Acetaminophen 325 Mg Tab) 325 mg PO Q6H PRN PRN Reason: Mild Pain Stop: 01/20/21 01:10 Last Admin: 12/23/20 02:39 Dose: 325 mg Documented by: Allopurinol (Allopurinol 300 Mg Tab) 300 mg PO PM [facility] Stop: 01/20/21 20:59 Last Admin: 12/25/20 20:30 Dose: 300 mg Documented by: Amlodipine Besylate (Amlodipine Besylate 5 Mg Tab) 10 mg PO QAM [facility] Stop: 01/20/21 08:59 Last Admin: 12/26/20 08:44 Dose: 10 mg Documented by: Aspirin (Aspirin 81 Mg Ectab) 81 mg PO DAILY [facility] Stop: 01/20/21 08:59 Last Admin: 12/26/20 08:45 Dose: 81 mg Documented by: Atorvastatin Calcium (Atorvastatin 40 Mg Tab) 80 mg PO PM [facility] Stop: 01/20/21 20:59 Last Admin: 12/25/20 20:31 Dose: 80 mg Documented by: Ciprofloxacin (Ciprofloxacin 500 Mg Tab) 500 mg PO BID [facility]; Protocol Stop: 01/08/21 11:59 Last Admin: 12/26/20 08:43 Dose: 500 mg Documented by: Dextrose (Dextrose 50% 50 Ml Syringe) 25 - 50 ml IV UD PRN; Protocol PRN Reason: Hypoglycemia Protocol Stop: 01/20/21 01:10 Ezetimibe (Ezetimibe 10 Mg Tablet) 10 mg PO DAILY [facility] Stop: 01/20/21 08:59 Last Admin: 12/26/20 08:43 Dose: 10 mg Documented by: Fluticasone Propionate (Fluticasone Propionate Na Spr 16 Gm Btl) 2 sprays NA QAM [facility] Stop: 01/20/21 08:59 Last Admin: 12/26/20 08:45 Dose: Not Given Documented by: Glucagon (Glucagon For Inj 1 Mg Vial) 1 mg SQ UD PRN; Protocol PRN Reason: Hypoglycemia Protocol Stop: 01/20/21 01:10 Glucose (Glucose 10 Tabs/Tube) 4 - 8 tabs PO UD PRN; Protocol PRN Reason: Hypoglycemia Protocol Stop: 01/20/21 01:10 Glucose (Glucose 40% Gel 15 Gm Tube) 15 - 30 gm PO UD PRN; Protocol PRN Reason: Hypoglycemia Protocol Stop: 01/20/21 01:10 Hydralazine HCl (Hydralazine Hcl 20 Mg/Ml Vial) 10 mg IV Q6H PRN PRN Reason: hypertension SBP>180 Stop: 01/22/21 12:56 Promethazine HCl 12.5 mg/ (Sodium Chloride) 50.5 mls @ 202 mls/hr IV Q6H PRN PRN Reason: Nausea And Vomiting Stop: 01/20/21 01:10 Lorazepam (Ativan) 0.25 mg in 0.5 mls @ 0.5 mls/min IV Q4H PRN PRN Reason: Anxiety Stop: 01/20/21 01:10 Insulin Aspart (Insulin Aspart 100 Units/Ml 3 Ml Pen) 0 units SC ACHS [facility] Stop: 01/23/21 16:29 Last Admin: 12/26/20 12:31 Dose: 2 units Documented by: Lidocaine HCl (Lidocaine Hcl Viscous Soln 2% 15 Ml Udc) 15 ml MT TID PRN PRN Reason: Pain Stop: 01/25/21 09:55 Last Admin: 12/26/20 11:25 Dose: 15 ml Documented by: Losartan Potassium (Losartan Potassium 50 Mg Tab) 100 mg PO QAM [facility] Stop: 01/20/21 01:34 Last Admin: 12/26/20 08:44 Dose: 100 mg Documented by: Menthol (Cough Drop (Sugar Free) Delroy 24 Delroy/1 Box) 1 delroy BUCCAL PRN PRN PRN Reason: Cough Stop: 01/23/21 17:12 Metoprolol Tartrate (Metoprolol Tartrate 25 Mg Tab) 25 mg PO BID [facility] Stop: 01/20/21 08:59 Last Admin: 12/26/20 08:48 Dose: 25 mg Documented by: Miscellaneous (Carbohydrates For Hypoglycemia ) 15 - 30 gm PO UD PRN PRN Reason: Hypoglycemia Protocol Stop: 01/20/21 01:10 Pantoprazole Sodium (Pantoprazole 40 Mg Tab) 40 mg PO QAM [facility] Stop: 01/20/21 08:59 Last Admin: 12/26/20 08:44 Dose: 40 mg Documented by: Terazosin HCl (Terazosin Hcl 1 Mg Cap) 2 mg PO HS [facility] Stop: 01/26/21 20:59 Tramadol HCl (Tramadol Hcl 50 Mg Tablet) 25 - 50 mg PO Q4H PRN PRN Reason: Pain Stop: 01/20/21 01:10 Last Admin: 12/21/20 22:18 Dose: 50 mg Documented by: (1) Acute pancreatitis Acute pancreatitis complication: unspecified Pancreatitis type: unspecified pancreatitis type Qualified Code(s): K85.90 - Acute pancreatitis without necrosis or infection, unspecified
--- NOTE | 2020-12-26 18:30 | Discharge Summary ---
Date of Service December 26, 2020 Admission HPI Per Admitting Provider History obtained from patient, family, and records. Medical history significant for CAD status post stent (12/2018), hypertension, hyperlipidemia, DM2 on oral medications, chronic anemia (baseline hemoglobin 13), AIDEN on CPAP, chronic tremors, past tobacco abuse. Patient experienced achy epigastric pain going to his chest with some shortness of breath after a heavy dinner tonight. No fever, some chills. No black/bloody stools. No prior episodes as per patient. No recent EtOH intake. Patient brought to the ER for evaluation. Initial SBP in the ER 180s. 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 Admission Exam Per Admitting Provider Physical Exam: GENERAL: Comfortable, pleasant, morbidly obese, looks younger for stated age, no respiratory distress SKIN: N pallor, cool HEENT: Alopecia, pale palpebral conjunctivae, no ptosis, dry buccal mucosa NECK : Supple, short neck, no tenderness CHEST : CTA, no tenderness HEART : RRR, no obvious murmurs ABDOMEN: Some distention, minimal epigastric tenderness RECTAL : Intact sphincter, yellow stool (FOBT negative) EXTREMITIES : Minimal LE swelling, no LE tenderness, no other conspicuous deformities noted NEUROLOGIC : Coherent, no facial asymmetry, no other gross focality Principal Diagnosis laparoscopic cholecystectomy,HTN Discharge Exam Constitutional well developed, well nourished and + obese; not ill appearing Eyes PERRL, conjunctivae normal, anicteric sclerae ENMT external ear and nose normal, oropharynx normal Neck trachea midline, no thyromegaly Respiratory no respiratory distress Auscultation: lungs clear to auscultation bilaterally Cardiovascular Rate/Rhythm: regular rate and regular rhythm Heart Sounds: no murmur Extremities: + edema (Trace to 1+ edema bilaterally) Gastrointestinal (Abdomen) Inspection/Auscultation: + abdomen distended and normal bowel sounds Percussion/Palpation: + abdomen tender and abdomen soft Psychiatric A+Ox3, euthymic affect Lymphatic no cervical or axillary lymphadenopathy Discharge Data Allergies Allergy/AdvReac Type Severity Reaction Status Date / Time No Known Allergies Allergy U Unverified 12/20/20 21:33 Consultations 12/20/20 22:29 ED Decision to Admit Stat 12/21/20 01:11 Consult Gastroenterology Routine 12/21/20 06:43 Consult General Surgery Routine 12/21/20 18:23 Consult Cardiology Routine Procedures Performed Operation Date: 12/24/20 09:30 Actual Procedures p Laparoscopic Cholecystectomy with Cholangiogram(Not Applicable) - Perico Guerrero MD Ordered Studies 12/20/20 21:06 CT abd pelvis IV con only Urgent 12/20/20 23:51 US gallbladder Urgent 12/21/20 06:41 MR MRCP Urgent 12/24/20 09:30 [place] cholangiogram OR Routine Hospital Course (1) Acute pancreatitis: Likely secondary to sludge in the duct system without any evidence of stones Overall patient is doing okay Lipase level has improved to normal No acute symptoms Gram-negative bacteremia Cultures positive for gram-negative bacteremia. Has been on Zosyn Zosyn. Repeat blood cultures negative thus far. Will likely need 2 weeks of antibiotic therapy. We will change antibiotic to oral Cipro and continue for a total of 2 weeks Has been tolerating Cipro well and will continue for a total of 2 weeks Acute cholecystitis Noted to have distended gallbladder with sludge without any evidence of gallstones or choledocholithiasis Appreciate GI input and recommendation Appreciate surgery input Status post laparoscopic cholecystectomy 12/24/20 He has been doing much better as of today and wants to go home LFTs have been improving (2) Transaminitis: HIDA scan negative for any infection. LFTs continue to improve. (3) Hypertension: Likely in the setting of pain as well. Can have hydralazine as needed for systolic blood pressure greater than 180. Cont amlodipine 10 mg and Cozaar 100 mg daily per home regimen. Cont holding Lasix 40mg daily for now to avoid dehydration in setting of acute pancreatitis. Appreciate cardiology input and recommendation Terazosin has been restarted (4) Hyperlipidemia: Continue Lipitor and Zetia per home regimen. (5) DMII (diabetes mellitus, type 2): Currently euglycemic. Continue insulin therapy while patient is hospitalized. (6) Morbid obesity: (7) CAD (coronary artery disease): Appreciate cardiology input. Continue holding Plavix for now. We will restart Plavix. (8) DVT prophylaxis: Lovenox Full Dispo-to home when medically stable. Like to be discharged today Total Time Total Time Spent Total Time Spent (In Minutes): 35 minutes Total Time Includes: Examination of the Patient, Discharge Planning, Medication Reconciliation and Communication With Other Providers Discharge Plan Discharge Items Patient Disposition: Home - Self-Care Reason For Visit: PANCREATITIS, HTN URGENCY Discharge Diagnosis: laparoscopic cholecystectomy,HTN Condition on Discharge: Good Activity: Per Instructions section Lifting: No more than 10 pounds Bathing Comment: may shower; no soaking in tubs/pools Exercise/Sports: Wait until after follow-up appointment Driving/Machine Use: do not resume driving while taking narcotics for pain Non-emergency contact: Primary Care Provider Call non-emergency contact if: you have any medication questions, your symptoms worsen, your pain is not controlled, your pain is worsening, your pain is concerning for you, you have a fever, your temperature is above 101.5, your wound has increased redness, your wound has increased drainage and your wound pain has increased Follow-up/Referrals: Perico Guerrero MD [Surgeon] - (Please call to schedule follow up in clinic within 1 week) Russ Crane MD [Primary Care Provider] - (Date & Time 12/30/2020 2:00 PM Provider Russ Crane III, MD Department [facility] ) Diet: Carb Consistent or DM2 and Heart Healthy Addtl Attending Provider Instructions: Please take precaution to avoid falls Please finish the course of antibiotic as directed Do not go to work for 1 week Pending Studies at Discharge: No Stand-Alone Forms: My Clinked, Smoking Cessation Medications and DC Order Prescriptions: New ciprofloxacin HCl 500 mg Tablet 500 mg PO BID 12 Days Qty: 24 RF: 0 metoprolol tartrate 25 mg Tablet 25 mg PO BID 30 Days Qty: 60 RF: 0 Lidocaine Viscous 2 % Solution 15 ml MT TID PRN (Reason: mouth pain) Qty: 100 RF: 0 Lactinex 1 million cell tablet,chewable 1 tab PO BID Qty: 30 RF: 0 Continued ibuprofen 200 mg Tablet 200 mg PO Q6H PRN (Reason: Pain) Qty: 0 RF: 0 atorvastatin 80 mg tablet 80 mg PO PM RF: 0 clopidogrel 75 mg tablet 75 mg PO QAM RF: 0 amlodipine 10 mg tablet 10 mg PO QAM RF: 0 pantoprazole 40 mg tablet,delayed release (DR/EC) 40 mg PO QAM RF: 0 losartan 100 mg tablet 100 mg PO QAM RF: 0 fluticasone propionate 50 mcg/actuation spray,suspension 2 spray intranasal QAM RF: 0 Sab[place]-3 350 mg-235 mg- 90 mg-597 mg Capsule,Delayed Release(Dr/Ec) 1 cap PO QAM RF: 0 allopurinol 300 mg tablet 300 mg PO PM RF: 0 furosemide 40 mg tablet 40 mg PO DAILY RF: 0 aspirin 81 mg Tablet,Delayed Release (Dr/Ec) 81 mg PO DAILY RF: 0 metformin 500 mg tablet extended release 24 hr 500 mg PO BID RF: 0 ezetimibe 10 mg tablet 10 mg PO DAILY RF: 0 propranolol 40 mg Tablet 40 mg PO BID RF: 0 Discharge Orders: Discharge Order (Routine); Ordered 12/26/20 Ordered By: Mike Soliman Admission Data Admit Date/Time: 12/20/20 23:46 Attending Provider: Mike Soliman Admit Provider: Osbaldo Faulkner Primary Care Provider: Russ Crane Other Providers: Osbaldo Faulkner ; Kel Cordero ; Jagruti Ford ; Kevan Talavera ; Cheli Barker ; Jorge Andrade ; Gunnar Chan ; Clay Aquino ; Mark Burnham ; Darrell Peters ; Lian Rodriguez ; Gissel Cox ; Naomy Mckeon ; Maria Antonia Carbajal ; Hollie Pearl ; Tulio Escalante ; Ranjit Dobbins ; Perico Guerrero ; Anurag Hua Jr ; Raudel Hughes ; Luis M Hilario ; Christina Llamas ; John Douglas ; López Sewell ; Luis M Haider ; Duc Mckeon Other Interventions: Discharge Summary Assessment (RN) Last Done: 12/26/20 13:48
--- NOTE | 2020-12-27 06:10 | Electrocardiogram Report ---
Test Reason : Blood Pressure : / mmHG Vent. Rate : 068 BPM Atrial Rate : 068 BPM P-R Int : 190 ms QRS Dur : 098 ms QT Int : 438 ms P-R-T Axes : 051 017 020 degrees QTc Int : 465 ms Sinus rhythm with Premature ventricular complexes Otherwise normal ECG When compared with ECG of 20-DEC-2020 21:04, Premature ventricular complexes are now Present Confirmed by Elan Jeff ([id number]) on 12/27/2020 6:10:14 AM Referred By: REFERRED SELF Confirmed By:Elan Jeff
[2020-12-27] MEDS ORDERED: TERAZOSIN HCL 1 MG CAP PO SCH (21:00)
== END 2020-12-26 17:00 | disposition home or self-care (01) | DRG 853 ==
LOC: ED 20:56 → 2N 23:46 → SUATTDRO 23:46 → 2N 12-21 00:21

== ENCOUNTER 2021-04-27 18:56 | Inpatient (IN) ==
[2021-04-27] MEDS ORDERED: PIPERACILLIN/TAZOBACTAM 4.5 GM/120 ML BAG IV ONE (20:28)
[2021-04-27] MEDS ORDERED: PIPERACILL/TAZOBAC CONSULT ACTIVE PRN (20:28)
[2021-04-27] MEDS ORDERED: ACETAMINOPHEN 500 MG TAB PO STA (20:28)
[2021-04-27] MEDS ORDERED: SODIUM CHLORIDE 0.9% 1000ML 250 ML IV ONE (20:28)
--- NOTE | 2021-04-27 20:36 | Emergency Department Note ---
History of Present Illness General Chief complaint: Abdominal Pain Stated complaint: FEVER,DIZZY,CONFUSION Time Seen by Provider: 04/27/21 20:18 Source: patient and family ( who is at the bedside) Mode of arrival: ambulatory Limitations: no limitations History of Present Illness This patient is a 70-year-old male who has a history of coronary artery disease and a gallbladder that was removed and December comes in with epigastric and central abdominal pain and a fever. He has had abdominal pain since yesterday has had some nausea he does feel short of breath at times with the pain denies chest pain or cough. He did have a temperature up to 103 at home. He did take Tylenol but it has been about 12 hours. No dysuria or hematuria. No fall or trauma he did have the Covid vaccine. He had normal bowel movements. He vomited once at home but denies feeling nauseated now. Home Medications Medication Instructions Recorded Confirmed Type allopurinol 300 mg PO PM 05/24/19 04/27/21 History amlodipine 5 mg PO QAM 05/24/19 04/27/21 History atorvastatin 80 mg PO PM 05/24/19 04/27/21 History clopidogrel 75 mg PO QAM 05/24/19 04/27/21 History fluticasone propionate 2 spray INTRANASAL QAM 05/24/19 04/27/21 History losartan 100 mg PO QAM 05/24/19 04/27/21 History pantoprazole 40 mg PO QAM 05/24/19 04/27/21 History aspirin 81 mg PO DAILY 12/20/20 04/27/21 History ezetimibe 10 mg PO DAILY 12/20/20 04/27/21 History furosemide 40 mg PO DAILY 12/20/20 04/27/21 History metformin 1,000 mg PO BID 12/20/20 04/27/21 History propranolol 40 mg PO BID 12/21/20 04/27/21 History Aldcyiujzov-Ysbwl-APZ Complex 1 tab PO BID 04/27/21 04/27/21 History loratadine 10 mg PO DAILY 04/27/21 04/27/21 History nitroglycerin [Nitrostat] 0.4 mg SUBLINGUAL UD PRN 04/27/21 04/27/21 History omega 9-[id number]-fish oil [Fish Oil] 1 cap PO DAILY 04/27/21 04/27/21 History spironolactone 25 mg PO DAILY 04/27/21 04/27/21 History doxycycline hyclate 100 mg PO BID #20 cap 04/30/21 Rx Allergies Allergy/AdvReac Type Severity Reaction Status Date / Time No Known Allergies Allergy U Unverified 04/27/21 21:08 Past Med/Surg History Medical History CAD (coronary artery disease) Status post drug-eluting stent to the proximal left anterior descending, drug-eluting stent to the mid right coronary artery after rotablation. Residual 100% left circumflex proximal occlusion December 26, 2018 Difficult airway for intubation DMII (diabetes mellitus, type 2) GERD (gastroesophageal reflux disease) Gout Hyperlipidemia Hypertension Morbid obesity Obstructive sleep apnea on CPAP Squamous cell carcinoma Surgical History Hx laparoscopic cholecystectomy (12/24/20) Laparoscopic Cholecystectomy with Cholangiogram Dr. 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 Other Information That Helps Us Care for You: No Feels Safe at Home: Yes Safety Concerns: Feels Safe At This Time Assistive Devices: Apnea Monitor, Glasses and Walker Review of Systems A total of 10 systems reviewed and were otherwise negative Physical Exam Vital Signs Vital Signs - 24 hr 04/27/21 19:06 04/27/21 20:25 Temperature 37.5 C 39.1 C H Temperature Source Oral Rectal Pulse Rate 97 H Pulse Rate [Finger] 101 H Respiratory Rate 20 20 Respiratory Effort / Characteristics Non-Labored Spontaneous Respiratory Depth Normal Blood Pressure 126/73 Blood Pressure [Right Arm] 150/79 H Blood Pressure Mean 90 Blood Pressure Mean [Right Arm] 102 Pulse Oximetry 94 95 Oxygen Delivery Method Room Air Room Air Sepsis Recent Fever Within 48 Hours No Sepsis New/Unexplained Change in Mental Status N/A Sepsis Action Taken by Nursing No Action Required General: Well developed well nourished mildly ill-appearing older male who appears in no acute respiratory distress, breathing comfortably on room air. Normal speech HEENT: Normal cephalic atraumatic. Pupils are equal round and reactive to ligh t. Extraocular movements are intact. Oropharynx is pink with moist mucous membranes. No swelling of the mouth lips or tongue. Neck: Supple with a midline trachea. No meningeal signs or stiffness, no JVD or bruits. No Stridor. Chest: Clear to auscultation bilaterally. No wheezes or rhonchi. No increased work of breathing. Heart: Regular rate and rhythm without murmurs or gallops. Abdomen: Soft moderately tender in the epigastric and central abdomen without peritonitis nondistended without rebound guarding or rigidity. Extremities: No cyanosis clubbing or edema. No calf tenderness or assymetry Spine/Back. Non tender to palpation. No CVA tenderness Skin: Good turgor without rashes. Neurologic exam: Cranial nerves two through 12 are intact. Motor and sensation are intact and symmetrical throughout. Course Administered Medications Discontinued Medications Acetaminophen (Acetaminophen 500 Mg Tab) 500 mg PO NOW [facility] Stop: 04/27/21 20:29 Last Admin: 04/27/21 20:44 Dose: 500 mg Documented by: [id number] Acetaminophen (Acetaminophen 325 Mg Tab) 650 mg PO Q4H PRN PRN Reason: pain/fever Stop: 05/28/21 02:29 Last Admin: 04/29/21 04:27 Dose: 650 mg Documented by: [id number] Admin: 04/28/21 17:11 Dose: 650 mg Documented by: [id number] Admin: 04/28/21 09:15 Dose: 650 mg Documented by: [id number] Allopurinol (Allopurinol 300 Mg Tab) 300 mg PO PM [facility] Stop: 05/28/21 20:59 Last Admin: 04/29/21 19:57 Dose: 300 mg Documented by: [id number] Admin: 04/28/21 20:51 Dose: 300 mg Documented by: [id number] Amlodipine Besylate (Amlodipine Besylate 5 Mg Tab) 5 mg PO QAM [facility] Stop: 05/28/21 08:59 Last Admin: 04/30/21 08:33 Dose: 5 mg Documented by: [id number] Admin: 04/29/21 09:34 Dose: 5 mg Documented by: [id number] Admin: 04/28/21 08:52 Dose: 5 mg Documented by: [id number] Aspirin (Aspirin 81 Mg Ectab) 81 mg PO DAILY [facility] Stop: 05/28/21 08:59 Last Admin: 04/30/21 08:33 Dose: 81 mg Documented by: [id number] Admin: 04/29/21 09:34 Dose: 81 mg Documented by: [id number] Admin: 04/28/21 08:52 Dose: 81 mg Documented by: [id number] Atorvastatin Calcium (Atorvastatin 40 Mg Tab) 80 mg PO PM [facility] Stop: 05/28/21 20:59 Last Admin: 04/29/21 19:57 Dose: 80 mg Documented by: [id number] Admin: 04/28/21 20:51 Dose: 80 mg Documented by: [id number] Clopidogrel Bisulfate (Clopidogrel Bisulfate 75 Mg Tab) 75 mg PO QAM [facility] Stop: 05/28/21 08:59 Last Admin: 04/30/21 08:33 Dose: 75 mg Documented by: [id number] Admin: 04/29/21 09:34 Dose: 75 mg Documented by: [id number] Admin: 04/28/21 08:53 Dose: 75 mg Documented by: [id number] Doxycycline Hyclate (Doxycycline Hyclate 100 Mg Cap) 100 mg PO BID [facility] Stop: 05/08/21 20:59 Last Admin: 04/30/21 08:32 Dose: 100 mg Documented by: [id number] Admin: 04/29/21 19:58 Dose: 100 mg Documented by: [id number] Admin: 04/29/21 09:34 Dose: 100 mg Documented by: [id number] Admin: 04/28/21 20:50 Dose: 100 mg Documented by: [id number] Ezetimibe (Ezetimibe 10 Mg Tablet) 10 mg PO DAILY [facility] Stop: 05/28/21 08:59 Last Admin: 04/30/21 08:33 Dose: 10 mg Documented by: [id number] Admin: 04/29/21 09:34 Dose: 10 mg Documented by: [id number] Admin: 04/28/21 08:52 Dose: 10 mg Documented by: [id number] Enoxaparin Sodium (Enoxaparin Inj 40 Mg/0.4 Ml Syr) 40 mg SQ QAM [facility] Stop: 05/28/21 08:59 Last Admin: 04/30/21 08:34 Dose: 40 mg Documented by: [id number] Admin: 04/29/21 09:35 Dose: 40 mg Documented by: [id number] Admin: 04/28/21 08:53 Dose: 40 mg Documented by: [id number] Fish Oil (Dupont-3 (Purified Fish Oil) 1 Gm Cap) 1 gm PO DAILY [facility] Stop: 05/30/21 08:59 Last Admin: 04/30/21 08:33 Dose: 1 gm Documented by: [id number] Fluticasone Propionate (Fluticasone Propionate Na Spr 16 Gm Btl) 2 sprays NA QAM [facility] Stop: 05/28/21 08:59 Last Admin: 04/30/21 08:34 Dose: 2 sprays Documented by: [id number] Admin: 04/29/21 09:35 Dose: Not Given Documented by: [id number] Admin: 04/28/21 08:53 Dose: 2 sprays Documented by: [id number] Furosemide (Furosemide 40 Mg Tab) 40 mg PO DAILY [facility] Stop: 05/30/21 08:59 Last Admin: 04/30/21 08:34 Dose: 40 mg Documented by: [id number] Sodium Chloride (Nss 1000ml) 250 mls @ 999 mls/hr IV .Q16M ONE Stop: 04/27/21 20:43 Last Infusion: 04/27/21 21:00 Dose: 0 mls/hr Documented by: [id number] Admin: 04/27/21 20:44 Dose: 999 mls/hr Documented by: [id number] Piperacillin Sod/Tazobactam Sod (Zosyn) 4.5 gm in 120 mls @ 240 mls/hr IV NOW ONE Stop: 04/27/21 20:57 Last Infusion: 04/27/21 21:25 Dose: 0 mls/hr Documented by: [id number] Admin: 04/27/21 20:53 Dose: 240 mls/hr Documented by: [id number] Potassium Chloride/Sodium Chloride (Normal Saline W/20 Meq Kcl) 20 meq in 1,000 mls @ 80 mls/hr IV .[id number] ONE Stop: 04/28/21 13:35 Last Infusion: 04/28/21 17:04 Dose: 0 mls/hr Documented by: [id number] Infusion: 04/28/21 09:12 Dose: 80 mls/hr Documented by: [id number] Infusion: 04/28/21 05:56 Dose: 0 mls/hr Documented by: [id number] Admin: 04/28/21 01:17 Dose: 80 mls/hr Documented by: [id number] Doxycycline Hyclate 100 mg/ (Dextrose) 110 mls @ 50 mls/hr IV NOW STA Stop: 04/28/21 07:39 Last Infusion: 04/28/21 08:11 Dose: 0 mls/hr Documented by: [id number] Admin: 04/28/21 05:56 Dose: 50 mls/hr Documented by: [id number] Insulin Aspart (Insulin Aspart 100 Units/Ml 3 Ml Pen) 0 units SC ACHS [facility] Stop: 05/28/21 03:44 Last Admin: 04/30/21 12:36 Dose: 3 units Documented by: [id number] Cosigned by: [id number] Admin: 04/30/21 08:43 Dose: 1 units Documented by: [id number] Cosigned by: [id number] Admin: 04/29/21 21:05 Dose: Not Given Documented by: [id number] Admin: 04/29/21 17:47 Dose: 2 units Documented by: [id number] Cosigned by: [id number] Admin: 04/29/21 14:02 Dose: 4 units Documented by: [id number] Cosigned by: [id number] Admin: 04/29/21 10:07 Dose: Not Given Documented by: [id number] Admin: 04/28/21 20:53 Dose: 1 units Documented by: [id number] Cosigned by: [id number] Admin: 04/28/21 18:12 Dose: 1 units Documented by: [id number] Cosigned by: [id number] Admin: 04/28/21 12:54 Dose: 3 units Documented by: [id number] Cosigned by: [id number] Admin: 04/28/21 08:54 Dose: Not Given Documented by: [id number] Admin: 04/28/21 04:38 Dose: Not Given Documented by: [id number] Cosigned by: [id number] Ioversol (Optiray 320 100ml) 93 ml IV ONCE ONE Stop: 04/27/21 20:58 Last Admin: 04/27/21 20:57 Dose: 93 ml Documented by: [id number] Ketorolac Tromethamine (Ketorolac Tromethamine 15 Mg/Ml Vial) 15 mg IV NOW ONE Stop: 04/28/21 00:57 Last Admin: 04/28/21 01:16 Dose: 15 mg Documented by: [id number] Loratadine (Loratadine 10 Mg Tab) 10 mg PO DAILY [facility] Stop: 05/28/21 08:59 Last Admin: 04/30/21 08:32 Dose: 10 mg Documented by: [id number] Admin: 04/29/21 09:34 Dose: 10 mg Documented by: [id number] Admin: 04/28/21 08:52 Dose: 10 mg Documented by: [id number] Losartan Potassium (Losartan Potassium 50 Mg Tab) 100 mg PO QAM [facility] Stop: 05/28/21 08:59 Last Admin: 04/30/21 08:33 Dose: 100 mg Documented by: [id number] Admin: 04/29/21 09:34 Dose: 100 mg Documented by: [id number] Admin: 04/28/21 08:52 Dose: 100 mg Documented by: [id number] Pantoprazole Sodium (Pantoprazole 40 Mg Tab) 40 mg PO QAM [facility] Stop: 05/28/21 08:59 Last Admin: 04/30/21 08:34 Dose: 40 mg Documented by: [id number] Admin: 04/29/21 09:34 Dose: 40 mg Documented by: [id number] Admin: 04/28/21 08:52 Dose: 40 mg Documented by: [id number] Propranolol HCl (Propranolol Hcl 20 Mg Tab) 40 mg PO BID [facility] Stop: 05/28/21 08:59 Last Admin: 04/30/21 08:32 Dose: 40 mg Documented by: [id number] Admin: 04/29/21 19:58 Dose: 40 mg Documented by: [id number] Admin: 04/29/21 09:35 Dose: 40 mg Documented by: [id number] Admin: 04/28/21 20:52 Dose: 40 mg Documented by: [id number] Admin: 04/28/21 08:51 Dose: 40 mg Documented by: [id number] Spironolactone (Spironolactone 25 Mg Tab) 25 mg PO DAILY [facility] Stop: 05/30/21 08:59 Last Admin: 04/30/21 08:33 Dose: 25 mg Documented by: [id number] Critical Care Time Critical Care Time: Yes Total Critical Care Time: 32 Due to the concern for sepsis, need for medications and IV fluids, an extensive work-up and frequent re-evaluation, I have personally spent greater than 32 minutes of critical care time in the direct management of this patient. This includes bedside care, interpretation of diagnostic studies, and testing, discussion with consultants, patient, and family members, and other required patient management activities. This 32 minutes is in excess of all separately billable procedures. Medical Decision Making Differential Diagnosis Diverticulitis, cholangitis, colitis, pancreatitis, acute coronary syndrome, sepsis, UTI, electrolyte or metabolic abnormality, Covid, pneumonia, bowel obstruction, hernia Medical Records Attestation: I reviewed the patient's medical records. Home Medications Current Medication List: was personally reviewed by [place] Laboratory Data Attestation: I reviewed the patient's lab results. Result diagrams: 04/30/21 05:43 04/30/21 05:43 Lab Results 04/27/21 04/27/21 04/27/21 Range/Units 20:30 20:30 20:30 WBC 6.23 (4.8-10.8) K/uL RBC 4.53 L (4.7-6.1) M/uL Hgb 13.6 L (14.0-18.0) g/dL POC Hgb (14.0-18.0) g/dl Hct 40.1 L (42-52) % POC Hct (42-52) % MCV 88.5 (80-100) fL MCH 30.0 (25-34) pg MCHC 33.9 (32-36) g/dL RDW Std Deviation 49.2 H (36.4-46.3) fL RDW Coeff of Hasmukh 15.1 H (11.5-14.5) % Plt Count 152 (130-400) K/uL MPV 9.1 (7.4-10.4) fL Immature Gran % (Auto) 0.2 % Neut % (Auto) 87.0 % Lymph % (Auto) 9.8 % [place] % (Auto) 3.0 % Eos % (Auto) 0.0 % Baso % (Auto) 0.0 % Neut # (Auto) 5.42 (1.4-6.5) K/uL Lymph # (Auto) 0.61 L (1.2-3.4) K/uL [place] # (Auto) 0.19 (0.11-0.59) K/uL Eos # (Auto) 0.00 (0-0.5) K/uL Baso # (Auto) 0.00 (0-0.2) K/uL Immature Gran # (Auto) 0.01 (0.00-0.02) K/uL Platelet Estimate (Normal) PT 11.9 (9.0-12.0) Seconds INR 1.2 H (0.9-1.1) APTT 26.2 (21.0-31.0) Seconds PTT Ratio 1.0 POC Sodium (135-144) mmol/L Sodium 136 (136-145) mmol/L POC Potassium (3.3-5.0) mmol/L Potassium 3.8 (3.5-5.1) mmol/L POC Chloride (101-112) mmol/L Chloride 101 (98-107) mmol/L Carbon Dioxide 25 (21-32) mmol/L POC Total CO2 (24-31) mmol/L Anion Gap 9.0 (3-11) POC Anion Gap (16-25) mmol/L POC BUN (7-18) mg/dl BUN 22 H (7-18) mg/dl Creatinine 1.24 (0.6-1.4) mg/dl POC Creatinine (0.6-1.3) mg/dl Est Cr Clr Drug Dosing 72.7 ml/min Est GFR ( Amer) 68.3 ml/min Est GFR (Non-Af Amer) 58.9 ml/min BUN/Creatinine Ratio 18.1 (10-20) Glucose 137 H (70-99) mg/dl POC Glucose (70-99) mg/dl POC Glucose (other) (70-99) mg/dl Lactate (0.4-2.0) mmol/L Calcium 9.1 (8.5-10.1) mg/dl POC Ioniz Calcium Dania (1.12-1.32) mmol/l Magnesium 2.1 (1.8-2.4) mg/dl Total Bilirubin 1.0 (0.2-1) mg/dl AST 32 (15-37) U/L ALT 47 (12-78) U/L Alkaline Phosphatase 83 (45-117) U/L Troponin I < 0.015 (0-0.045) ng/ml Total Protein 8.3 H (6.4-8.2) gm/dl Albumin 3.8 (3.4-5.0) gm/dl Globulin 4.5 H (2.5-4.0) gm/dl Albumin/Globulin Ratio 0.8 L (0.9-2) Lipase 125 (73-393) U/L Procalcitonin (0-0.5) ng/ml Urine Color Urine Appearance (Clear) Urine pH (4.5-7.5) Ur Specific [place] (1.000-1.030) Urine Protein (Negative) Urine Glucose (UA) (Negative) Urine Ketones (Negative) Urine Blood (Negative) Urine Nitrite (Negative) Urine Bilirubin (Negative) Urine Urobilinogen (Negative) Ur Leukocyte Esterase (Negative) Urine WBC (Auto) (0-5) /hpf Urine RBC (Auto) (0-4) /hpf U Hyaline Cast (Auto) (0-5) /lpf U Epithel Cells (Auto) (0-5) /lpf Urine Bacteria (Auto) (Negative) Anaplasma Smear Lyme Disease IgG Ab (Negative) Lyme IgG (Western Blot) (NEGATIVE) Lyme IgG 18 kDa Band Lyme IgG 23 kDa Band Lyme IgG 28 kDa Band Lyme IgG 30 kDa Band Lyme IgG 39 kDa Band Lyme IgG 41 kDa Band Lyme IgG 45 kDa Band Lyme IgG 58 kDa Band Lyme IgG 66 kDa Band Lyme IgG 93 kDa Band Lyme IgM Ab (WB) (NEGATIVE) Lyme Disease IgM Ab (Negative) Lyme IgM 23 kDa Band Lyme IgM 39 kDa Band Lyme IgM 41 kDa Band COVID-19 Eval Order SARS-CoV-2 (PCR) (Negative) 04/27/21 04/27/21 04/27/21 Range/Units 20:30 20:30 20:30 WBC (4.8-10.8) K/uL RBC (4.7-6.1) M/uL Hgb (14.0-18.0) g/dL POC Hgb (14.0-18.0) g/dl Hct (42-52) % POC Hct (42-52) % MCV (80-100) fL MCH (25-34) pg MCHC (32-36) g/dL RDW Std Deviation (36.4-46.3) fL RDW Coeff of Hasmukh (11.5-14.5) % Plt Count (130-400) K/uL MPV (7.4-10.4) fL Immature Gran % (Auto) % Neut % (Auto) % Lymph % (Auto) % [place] % (Auto) % Eos % (Auto) % Baso % (Auto) % Neut # (Auto) (1.4-6.5) K/uL Lymph # (Auto) (1.2-3.4) K/uL [place] # (Auto) (0.11-0.59) K/uL Eos # (Auto) (0-0.5) K/uL Baso # (Auto) (0-0.2) K/uL Immature Gran # (Auto) (0.00-0.02) K/uL Platelet Estimate (Normal) PT (9.0-12.0) Seconds INR (0.9-1.1) APTT (21.0-31.0) Seconds PTT Ratio POC Sodium (135-144) mmol/L Sodium (136-145) mmol/L POC Potassium (3.3-5.0) mmol/L Potassium (3.5-5.1) mmol/L POC Chloride (101-112) mmol/L Chloride (98-107) mmol/L Carbon Dioxide (21-32) mmol/L POC Total CO2 (24-31) mmol/L Anion Gap (3-11) POC Anion Gap (16-25) mmol/L POC BUN (7-18) mg/dl BUN (7-18) mg/dl Creatinine (0.6-1.4) mg/dl POC Creatinine (0.6-1.3) mg/dl Est Cr Clr Drug Dosing ml/min Est GFR ( Amer) ml/min Est GFR (Non-Af Amer) ml/min BUN/Creatinine Ratio (10-20) Glucose (70-99) mg/dl POC Glucose (70-99) mg/dl POC Glucose (other) (70-99) mg/dl Lactate 1.9 (0.4-2.0) mmol/L Calcium (8.5-10.1) mg/dl POC Ioniz Calcium Dania (1.12-1.32) mmol/l Magnesium (1.8-2.4) mg/dl Total Bilirubin (0.2-1) mg/dl AST (15-37) U/L ALT (12-78) U/L Alkaline Phosphatase (45-117) U/L Troponin I (0-0.045) ng/ml Total Protein (6.4-8.2) gm/dl Albumin (3.4-5.0) gm/dl Globulin (2.5-4.0) gm/dl Albumin/Globulin Ratio (0.9-2) Lipase (73-393) U/L Procalcitonin 0.49 (0-0.5) ng/ml Urine Color Urine Appearance (Clear) Urine pH (4.5-7.5) Ur Specific [place] (1.000-1.030) Urine Protein (Negative) Urine Glucose (UA) (Negative) Urine Ketones (Negative) Urine Blood (Negative) Urine Nitrite (Negative) Urine Bilirubin (Negative) Urine Urobilinogen (Negative) Ur Leukocyte Esterase (Negative) Urine WBC (Auto) (0-5) /hpf Urine RBC (Auto) (0-4) /hpf U Hyaline Cast (Auto) (0-5) /lpf U Epithel Cells (Auto) (0-5) /lpf Urine Bacteria (Auto) (Negative) Anaplasma Smear Lyme Disease IgG Ab Negative (Negative) Lyme IgG (Western Blot) (NEGATIVE) Lyme IgG 18 kDa Band Lyme IgG 23 kDa Band Lyme IgG 28 kDa Band Lyme IgG 30 kDa Band Lyme IgG 39 kDa Band Lyme IgG 41 kDa Band Lyme IgG 45 kDa Band Lyme IgG 58 kDa Band Lyme IgG 66 kDa Band Lyme IgG 93 kDa Band Lyme IgM Ab (WB) (NEGATIVE) Lyme Disease IgM Ab Equivocal A (Negative) Lyme IgM 23 kDa Band Lyme IgM 39 kDa Band Lyme IgM 41 kDa Band COVID-19 Eval Order SARS-CoV-2 (PCR) (Negative) 04/27/21 04/27/21 04/27/21 Range/Units 20:30 20:48 21:17 WBC (4.8-10.8) K/uL RBC (4.7-6.1) M/uL Hgb (14.0-18.0) g/dL POC Hgb 13.6 L (14.0-18.0) g/dl Hct (42-52) % POC Hct 40 L (42-52) % MCV (80-100) fL MCH (25-34) pg MCHC (32-36) g/dL RDW Std Deviation (36.4-46.3) fL RDW Coeff of Hasmukh (11.5-14.5) % Plt Count (130-400) K/uL MPV (7.4-10.4) fL Immature Gran % (Auto) % Neut % (Auto) % Lymph % (Auto) % [place] % (Auto) % Eos % (Auto) % Baso % (Auto) % Neut # (Auto) (1.4-6.5) K/uL Lymph # (Auto) (1.2-3.4) K/uL [place] # (Auto) (0.11-0.59) K/uL Eos # (Auto) (0-0.5) K/uL Baso # (Auto) (0-0.2) K/uL Immature Gran # (Auto) (0.00-0.02) K/uL Platelet Estimate (Normal) PT (9.0-12.0) Seconds INR (0.9-1.1) APTT (21.0-31.0) Seconds PTT Ratio POC Sodium 138 (135-144) mmol/L Sodium (136-145) mmol/L POC Potassium 3.9 (3.3-5.0) mmol/L Potassium (3.5-5.1) mmol/L POC Chloride 98 L (101-112) mmol/L Chloride (98-107) mmol/L Carbon Dioxide (21-32) mmol/L POC Total CO2 24 (24-31) mmol/L Anion Gap (3-11) POC Anion Gap 21.0 (16-25) mmol/L POC BUN 21 H (7-18) mg/dl BUN (7-18) mg/dl Creatinine (0.6-1.4) mg/dl POC Creatinine 1.1 (0.6-1.3) mg/dl Est Cr Clr Drug Dosing ml/min Est GFR ( Amer) ml/min Est GFR (Non-Af Amer) ml/min BUN/Creatinine Ratio (10-20) Glucose (70-99) mg/dl POC Glucose (70-99) mg/dl POC Glucose (other) 146 H (70-99) mg/dl Lactate (0.4-2.0) mmol/L Calcium (8.5-10.1) mg/dl POC Ioniz Calcium Dania 1.14 (1.12-1.32) mmol/l Magnesium (1.8-2.4) mg/dl Total Bilirubin (0.2-1) mg/dl AST (15-37) U/L ALT (12-78) U/L Alkaline Phosphatase (45-117) U/L Troponin I (0-0.045) ng/ml Total Protein (6.4-8.2) gm/dl Albumin (3.4-5.0) gm/dl Globulin (2.5-4.0) gm/dl Albumin/Globulin Ratio (0.9-2) Lipase (73-393) U/L Procalcitonin (0-0.5) ng/ml Urine Color Urine Appearance (Clear) Urine pH (4.5-7.5) Ur Specific [place] (1.000-1.030) Urine Protein (Negative) Urine Glucose (UA) (Negative) Urine Ketones (Negative) Urine Blood (Negative) Urine Nitrite (Negative) Urine Bilirubin (Negative) Urine Urobilinogen (Negative) Ur Leukocyte Esterase (Negative) Urine WBC (Auto) (0-5) /hpf Urine RBC (Auto) (0-4) /hpf U Hyaline Cast (Auto) (0-5) /lpf U Epithel Cells (Auto) (0-5) /lpf Urine Bacteria (Auto) (Negative) Anaplasma Smear Lyme Disease IgG Ab (Negative) Lyme IgG (Western Blot) NEGATIVE (NEGATIVE) Lyme IgG 18 kDa Band NON-REACTIVE Lyme IgG 23 kDa Band NON-REACTIVE Lyme IgG 28 kDa Band NON-REACTIVE Lyme IgG 30 kDa Band NON-REACTIVE Lyme IgG 39 kDa Band NON-REACTIVE Lyme IgG 41 kDa Band REACTIVE A Lyme IgG 45 kDa Band NON-REACTIVE Lyme IgG 58 kDa Band NON-REACTIVE Lyme IgG 66 kDa Band NON-REACTIVE Lyme IgG 93 kDa Band REACTIVE A Lyme IgM Ab (WB) NEGATIVE (NEGATIVE) Lyme Disease IgM Ab (Negative) Lyme IgM 23 kDa Band REACTIVE A Lyme IgM 39 kDa Band NON-REACTIVE Lyme IgM 41 kDa Band NON-REACTIVE COVID-19 Eval Order Covid19 at [facility] SARS-CoV-2 (PCR) (Negative) 04/27/21 04/27/21 04/28/21 Range/Units 21:17 22:26 02:32 WBC (4.8-10.8) K/uL RBC (4.7-6.1) M/uL Hgb (14.0-18.0) g/dL POC Hgb (14.0-18.0) g/dl Hct (42-52) % POC Hct (42-52) % MCV (80-100) fL MCH (25-34) pg MCHC (32-36) g/dL RDW Std Deviation (36.4-46.3) fL RDW Coeff of Hasmukh (11.5-14.5) % Plt Count (130-400) K/uL MPV (7.4-10.4) fL Immature Gran % (Auto) % Neut % (Auto) % Lymph % (Auto) % [place] % (Auto) % Eos % (Auto) % Baso % (Auto) % Neut # (Auto) (1.4-6.5) K/uL Lymph # (Auto) (1.2-3.4) K/uL [place] # (Auto) (0.11-0.59) K/uL Eos # (Auto) (0-0.5) K/uL Baso # (Auto) (0-0.2) K/uL Immature Gran # (Auto) (0.00-0.02) K/uL Platelet Estimate (Normal) PT (9.0-12.0) Seconds INR (0.9-1.1) APTT (21.0-31.0) Seconds PTT Ratio POC Sodium (135-144) mmol/L Sodium (136-145) mmol/L POC Potassium (3.3-5.0) mmol/L Potassium (3.5-5.1) mmol/L POC Chloride (101-112) mmol/L Chloride (98-107) mmol/L Carbon Dioxide (21-32) mmol/L POC Total CO2 (24-31) mmol/L Anion Gap (3-11) POC Anion Gap (16-25) mmol/L POC BUN (7-18) mg/dl BUN (7-18) mg/dl Creatinine (0.6-1.4) mg/dl POC Creatinine (0.6-1.3) mg/dl Est Cr Clr Drug Dosing ml/min Est GFR ( Amer) ml/min Est GFR (Non-Af Amer) ml/min BUN/Creatinine Ratio (10-20) Glucose (70-99) mg/dl POC Glucose 149 H (70-99) mg/dl POC Glucose (other) (70-99) mg/dl Lactate (0.4-2.0) mmol/L Calcium (8.5-10.1) mg/dl POC Ioniz Calcium Dania (1.12-1.32) mmol/l Magnesium (1.8-2.4) mg/dl Total Bilirubin (0.2-1) mg/dl AST (15-37) U/L ALT (12-78) U/L Alkaline Phosphatase (45-117) U/L Troponin I (0-0.045) ng/ml Total Protein (6.4-8.2) gm/dl Albumin (3.4-5.0) gm/dl Globulin (2.5-4.0) gm/dl Albumin/Globulin Ratio (0.9-2) Lipase (73-393) U/L Procalcitonin (0-0.5) ng/ml Urine Color Yellow Urine Appearance Clear (Clear) Urine pH 5.0 (4.5-7.5) Ur Specific [place] > 1.045 H (1.000-1.030) Urine Protein Negative (Negative) Urine Glucose (UA) Negative (Negative) Urine Ketones Negative (Negative) Urine Blood Trace H (Negative) Urine Nitrite Negative (Negative) Urine Bilirubin Negative (Negative) Urine Urobilinogen Negative (Negative) Ur Leukocyte Esterase Negative (Negative) Urine WBC (Auto) 1-5 (0-5) /hpf Urine RBC (Auto) 0-4 (0-4) /hpf U Hyaline Cast (Auto) 1-5 (0-5) /lpf U Epithel Cells (Auto) 5-10 H (0-5) /lpf Urine Bacteria (Auto) Negative (Negative) Anaplasma Smear Lyme Disease IgG Ab (Negative) Lyme IgG (Western Blot) (NEGATIVE) Lyme IgG 18 kDa Band Lyme IgG 23 kDa Band Lyme IgG 28 kDa Band Lyme IgG 30 kDa Band Lyme IgG 39 kDa Band Lyme IgG 41 kDa Band Lyme IgG 45 kDa Band Lyme IgG 58 kDa Band Lyme IgG 66 kDa Band Lyme IgG 93 kDa Band Lyme IgM Ab (WB) (NEGATIVE) Lyme Disease IgM Ab (Negative) Lyme IgM 23 kDa Band Lyme IgM 39 kDa Band Lyme IgM 41 kDa Band COVID-19 Eval Order SARS-CoV-2 (PCR) NEGATIVE (Negative) 04/28/21 04/28/21 04/28/21 Range/Units 06:48 06:48 06:48 WBC 5.21 (4.8-10.8) K/uL RBC 4.33 L (4.7-6.1) M/uL Hgb 12.7 L (14.0-18.0) g/dL POC Hgb (14.0-18.0) g/dl Hct 37.9 L (42-52) % POC Hct (42-52) % MCV 87.5 (80-100) fL MCH 29.3 (25-34) pg MCHC 33.5 (32-36) g/dL RDW Std Deviation 49.0 H (36.4-46.3) fL RDW Coeff of Hasmukh 15.2 H (11.5-14.5) % Plt Count 120 L (130-400) K/uL MPV 9.9 (7.4-10.4) fL Immature Gran % (Auto) 0.2 % Neut % (Auto) 86.6 % Lymph % (Auto) 6.1 % [place] % (Auto) 6.9 % Eos % (Auto) 0.0 % Baso % (Auto) 0.2 % Neut # (Auto) 4.51 (1.4-6.5) K/uL Lymph # (Auto) 0.32 L (1.2-3.4) K/uL [place] # (Auto) 0.36 (0.11-0.59) K/uL Eos # (Auto) 0.00 (0-0.5) K/uL Baso # (Auto) 0.01 (0-0.2) K/uL Immature Gran # (Auto) 0.01 (0.00-0.02) K/uL Platelet Estimate (Normal) PT (9.0-12.0) Seconds INR (0.9-1.1) APTT (21.0-31.0) Seconds PTT Ratio POC Sodium (135-144) mmol/L Sodium 135 L (136-145) mmol/L POC Potassium (3.3-5.0) mmol/L Potassium 3.5 (3.5-5.1) mmol/L POC Chloride (101-112) mmol/L Chloride 102 (98-107) mmol/L Carbon Dioxide 24 (21-32) mmol/L POC Total CO2 (24-31) mmol/L Anion Gap 9.0 (3-11) POC Anion Gap (16-25) mmol/L POC BUN (7-18) mg/dl BUN 23 H (7-18) mg/dl Creatinine 1.25 (0.6-1.4) mg/dl POC Creatinine (0.6-1.3) mg/dl Est Cr Clr Drug Dosing 72.2 ml/min Est GFR ( Amer) 67.7 ml/min Est GFR (Non-Af Amer) 58.4 ml/min BUN/Creatinine Ratio 18.2 (10-20) Glucose 148 H (70-99) mg/dl POC Glucose (70-99) mg/dl POC Glucose (other) (70-99) mg/dl Lactate (0.4-2.0) mmol/L Calcium 8.4 L (8.5-10.1) mg/dl POC Ioniz Calcium Dania (1.12-1.32) mmol/l Magnesium (1.8-2.4) mg/dl Total Bilirubin 1.1 H (0.2-1) mg/dl AST 38 H (15-37) U/L ALT 53 (12-78) U/L Alkaline Phosphatase 73 (45-117) U/L Troponin I (0-0.045) ng/ml Total Protein 7.4 (6.4-8.2) gm/dl Albumin 3.4 (3.4-5.0) gm/dl Globulin 4.0 (2.5-4.0) gm/dl Albumin/Globulin Ratio 0.9 (0.9-2) Lipase (73-393) U/L Procalcitonin 0.39 (0-0.5) ng/ml Urine Color Urine Appearance (Clear) Urine pH (4.5-7.5) Ur Specific [place] (1.000-1.030) Urine Protein (Negative) Urine Glucose (UA) (Negative) Urine Ketones (Negative) Urine Blood (Negative) Urine Nitrite (Negative) Urine Bilirubin (Negative) Urine Urobilinogen (Negative) Ur Leukocyte Esterase (Negative) Urine WBC (Auto) (0-5) /hpf Urine RBC (Auto) (0-4) /hpf U Hyaline Cast (Auto) (0-5) /lpf U Epithel Cells (Auto) (0-5) /lpf Urine Bacteria (Auto) (Negative) Anaplasma Smear Lyme Disease IgG Ab (Negative) Lyme IgG (Western Blot) (NEGATIVE) Lyme IgG 18 kDa Band Lyme IgG 23 kDa Band Lyme IgG 28 kDa Band Lyme IgG 30 kDa Band Lyme IgG 39 kDa Band Lyme IgG 41 kDa Band Lyme IgG 45 kDa Band Lyme IgG 58 kDa Band Lyme IgG 66 kDa Band Lyme IgG 93 kDa Band Lyme IgM Ab (WB) (NEGATIVE) Lyme Disease IgM Ab (Negative) Lyme IgM 23 kDa Band Lyme IgM 39 kDa Band Lyme IgM 41 kDa Band COVID-19 Eval Order SARS-CoV-2 (PCR) (Negative) 04/28/21 04/28/21 04/28/21 Range/Units 08:10 11:53 16:30 WBC (4.8-10.8) K/uL RBC (4.7-6.1) M/uL Hgb (14.0-18.0) g/dL POC Hgb (14.0-18.0) g/dl Hct (42-52) % POC Hct (42-52) % MCV (80-100) fL MCH (25-34) pg MCHC (32-36) g/dL RDW Std Deviation (36.4-46.3) fL RDW Coeff of Hasmukh (11.5-14.5) % Plt Count (130-400) K/uL MPV (7.4-10.4) fL Immature Gran % (Auto) % Neut % (Auto) % Lymph % (Auto) % [place] % (Auto) % Eos % (Auto) % Baso % (Auto) % Neut # (Auto) (1.4-6.5) K/uL Lymph # (Auto) (1.2-3.4) K/uL [place] # (Auto) (0.11-0.59) K/uL Eos # (Auto) (0-0.5) K/uL Baso # (Auto) (0-0.2) K/uL Immature Gran # (Auto) (0.00-0.02) K/uL Platelet Estimate (Normal) PT (9.0-12.0) Seconds INR (0.9-1.1) APTT (21.0-31.0) Seconds PTT Ratio POC Sodium (135-144) mmol/L Sodium (136-145) mmol/L POC Potassium (3.3-5.0) mmol/L Potassium (3.5-5.1) mmol/L POC Chloride (101-112) mmol/L Chloride (98-107) mmol/L Carbon Dioxide (21-32) mmol/L POC Total CO2 (24-31) mmol/L Anion Gap (3-11) POC Anion Gap (16-25) mmol/L POC BUN (7-18) mg/dl BUN (7-18) mg/dl Creatinine (0.6-1.4) mg/dl POC Creatinine (0.6-1.3) mg/dl Est Cr Clr Drug Dosing ml/min Est GFR ( Amer) ml/min Est GFR (Non-Af Amer) ml/min BUN/Creatinine Ratio (10-20) Glucose (70-99) mg/dl POC Glucose 140 H 129 H (70-99) mg/dl POC Glucose (other) (70-99) mg/dl Lactate (0.4-2.0) mmol/L Calcium (8.5-10.1) mg/dl POC Ioniz Calcium Dania (1.12-1.32) mmol/l Magnesium (1.8-2.4) mg/dl Total Bilirubin (0.2-1) mg/dl AST (15-37) U/L ALT (12-78) U/L Alkaline Phosphatase (45-117) U/L Troponin I (0-0.045) ng/ml Total Protein (6.4-8.2) gm/dl Albumin (3.4-5.0) gm/dl Globulin (2.5-4.0) gm/dl Albumin/Globulin Ratio (0.9-2) Lipase (73-393) U/L Procalcitonin (0-0.5) ng/ml Urine Color Urine Appearance (Clear) Urine pH (4.5-7.5) Ur Specific [place] (1.000-1.030) Urine Protein (Negative) Urine Glucose (UA) (Negative) Urine Ketones (Negative) Urine Blood (Negative) Urine Nitrite (Negative) Urine Bilirubin (Negative) Urine Urobilinogen (Negative) Ur Leukocyte Esterase (Negative) Urine WBC (Auto) (0-5) /hpf Urine RBC (Auto) (0-4) /hpf U Hyaline Cast (Auto) (0-5) /lpf U Epithel Cells (Auto) (0-5) /lpf Urine Bacteria (Auto) (Negative) Anaplasma Smear See Comment Lyme Disease IgG Ab (Negative) Lyme IgG (Western Blot) (NEGATIVE) Lyme IgG 18 kDa Band Lyme IgG 23 kDa Band Lyme IgG 28 kDa Band Lyme IgG 30 kDa Band Lyme IgG 39 kDa Band Lyme IgG 41 kDa Band Lyme IgG 45 kDa Band Lyme IgG 58 kDa Band Lyme IgG 66 kDa Band Lyme IgG 93 kDa Band Lyme IgM Ab (WB) (NEGATIVE) Lyme Disease IgM Ab (Negative) Lyme IgM 23 kDa Band Lyme IgM 39 kDa Band Lyme IgM 41 kDa Band COVID-19 Eval Order SARS-CoV-2 (PCR) (Negative) 04/28/21 04/28/21 04/29/21 Range/Units 16:55 20:33 06:08 WBC (4.8-10.8) K/uL RBC (4.7-6.1) M/uL Hgb (14.0-18.0) g/dL POC Hgb (14.0-18.0) g/dl Hct (42-52) % POC Hct (42-52) % MCV (80-100) fL MCH (25-34) pg MCHC (32-36) g/dL RDW Std Deviation (36.4-46.3) fL RDW Coeff of Hasmukh (11.5-14.5) % Plt Count (130-400) K/uL MPV (7.4-10.4) fL Immature Gran % (Auto) % Neut % (Auto) % Lymph % (Auto) % [place] % (Auto) % Eos % (Auto) % Baso % (Auto) % Neut # (Auto) (1.4-6.5) K/uL Lymph # (Auto) (1.2-3.4) K/uL [place] # (Auto) (0.11-0.59) K/uL Eos # (Auto) (0-0.5) K/uL Baso # (Auto) (0-0.2) K/uL Immature Gran # (Auto) (0.00-0.02) K/uL Platelet Estimate (Normal) PT (9.0-12.0) Seconds INR (0.9-1.1) APTT (21.0-31.0) Seconds PTT Ratio POC Sodium (135-144) mmol/L Sodium 137 (136-145) mmol/L POC Potassium (3.3-5.0) mmol/L Potassium 3.7 (3.5-5.1) mmol/L POC Chloride (101-112) mmol/L Chloride 105 (98-107) mmol/L Carbon Dioxide 24 (21-32) mmol/L POC Total CO2 (24-31) mmol/L Anion Gap 9.0 (3-11) POC Anion Gap (16-25) mmol/L POC BUN (7-18) mg/dl BUN 18 (7-18) mg/dl Creatinine 0.97 (0.6-1.4) mg/dl POC Creatinine (0.6-1.3) mg/dl Est Cr Clr Drug Dosing 93.0 ml/min Est GFR ( Amer) 91.9 ml/min Est GFR (Non-Af Amer) 79.3 ml/min BUN/Creatinine Ratio 18.2 (10-20) Glucose 131 H (70-99) mg/dl POC Glucose 124 H 145 H (70-99) mg/dl POC Glucose (other) (70-99) mg/dl Lactate (0.4-2.0) mmol/L Calcium 8.4 L (8.5-10.1) mg/dl POC Ioniz Calcium Dania (1.12-1.32) mmol/l Magnesium (1.8-2.4) mg/dl Total Bilirubin (0.2-1) mg/dl AST (15-37) U/L ALT (12-78) U/L Alkaline Phosphatase (45-117) U/L Troponin I (0-0.045) ng/ml Total Protein (6.4-8.2) gm/dl Albumin (3.4-5.0) gm/dl Globulin (2.5-4.0) gm/dl Albumin/Globulin Ratio (0.9-2) Lipase (73-393) U/L Procalcitonin (0-0.5) ng/ml Urine Color Urine Appearance (Clear) Urine pH (4.5-7.5) Ur Specific [place] (1.000-1.030) Urine Protein (Negative) Urine Glucose (UA) (Negative) Urine Ketones (Negative) Urine Blood (Negative) Urine Nitrite (Negative) Urine Bilirubin (Negative) Urine Urobilinogen (Negative) Ur Leukocyte Esterase (Negative) Urine WBC (Auto) (0-5) /hpf Urine RBC (Auto) (0-4) /hpf U Hyaline Cast (Auto) (0-5) /lpf U Epithel Cells (Auto) (0-5) /lpf Urine Bacteria (Auto) (Negative) Anaplasma Smear Lyme Disease IgG Ab (Negative) Lyme IgG (Western Blot) (NEGATIVE) Lyme IgG 18 kDa Band Lyme IgG 23 kDa Band Lyme IgG 28 kDa Band Lyme IgG 30 kDa Band Lyme IgG 39 kDa Band Lyme IgG 41 kDa Band Lyme IgG 45 kDa Band Lyme IgG 58 kDa Band Lyme IgG 66 kDa Band Lyme IgG 93 kDa Band Lyme IgM Ab (WB) (NEGATIVE) Lyme Disease IgM Ab (Negative) Lyme IgM 23 kDa Band Lyme IgM 39 kDa Band Lyme IgM 41 kDa Band COVID-19 Eval Order SARS-CoV-2 (PCR) (Negative) 04/29/21 04/29/21 04/29/21 Range/Units 06:15 06:19 08:10 WBC 4.02 L (4.8-10.8) K/uL RBC 4.23 L (4.7-6.1) M/uL Hgb 12.4 L (14.0-18.0) g/dL POC Hgb (14.0-18.0) g/dl Hct 36.9 L (42-52) % POC Hct (42-52) % MCV 87.2 (80-100) fL MCH 29.3 (25-34) pg MCHC 33.6 (32-36) g/dL RDW Std Deviation 48.8 H (36.4-46.3) fL RDW Coeff of Hasmukh 15.1 H (11.5-14.5) % Plt Count 97 L (130-400) K/uL MPV 8.9 (7.4-10.4) fL Immature Gran % (Auto) % Neut % (Auto) % Lymph % (Auto) % [place] % (Auto) % Eos % (Auto) % Baso % (Auto) % Neut # (Auto) (1.4-6.5) K/uL Lymph # (Auto) (1.2-3.4) K/uL [place] # (Auto) (0.11-0.59) K/uL Eos # (Auto) (0-0.5) K/uL Baso # (Auto) (0-0.2) K/uL Immature Gran # (Auto) (0.00-0.02) K/uL Platelet Estimate Decreased L (Normal) PT (9.0-12.0) Seconds INR (0.9-1.1) APTT (21.0-31.0) Seconds PTT Ratio POC Sodium (135-144) mmol/L Sodium (136-145) mmol/L POC Potassium (3.3-5.0) mmol/L Potassium (3.5-5.1) mmol/L POC Chloride (101-112) mmol/L Chloride (98-107) mmol/L Carbon Dioxide (21-32) mmol/L POC Total CO2 (24-31) mmol/L Anion Gap (3-11) POC Anion Gap (16-25) mmol/L POC BUN (7-18) mg/dl BUN (7-18) mg/dl Creatinine (0.6-1.4) mg/dl POC Creatinine (0.6-1.3) mg/dl Est Cr Clr Drug Dosing ml/min Est GFR ( Amer) ml/min Est GFR (Non-Af Amer) ml/min BUN/Creatinine Ratio (10-20) Glucose (70-99) mg/dl POC Glucose 134 H 123 H (70-99) mg/dl POC Glucose (other) (70-99) mg/dl Lactate (0.4-2.0) mmol/L Calcium (8.5-10.1) mg/dl POC Ioniz Calcium Dania (1.12-1.32) mmol/l Magnesium (1.8-2.4) mg/dl Total Bilirubin (0.2-1) mg/dl AST (15-37) U/L ALT (12-78) U/L Alkaline Phosphatase (45-117) U/L Troponin I (0-0.045) ng/ml Total Protein (6.4-8.2) gm/dl Albumin (3.4-5.0) gm/dl Globulin (2.5-4.0) gm/dl Albumin/Globulin Ratio (0.9-2) Lipase (73-393) U/L Procalcitonin (0-0.5) ng/ml Urine Color Urine Appearance (Clear) Urine pH (4.5-7.5) Ur Specific [place] (1.000-1.030) Urine Protein (Negative) Urine Glucose (UA) (Negative) Urine Ketones (Negative) Urine Blood (Negative) Urine Nitrite (Negative) Urine Bilirubin (Negative) Urine Urobilinogen (Negative) Ur Leukocyte Esterase (Negative) Urine WBC (Auto) (0-5) /hpf Urine RBC (Auto) (0-4) /hpf U Hyaline Cast (Auto) (0-5) /lpf U Epithel Cells (Auto) (0-5) /lpf Urine Bacteria (Auto) (Negative) Anaplasma Smear Lyme Disease IgG Ab (Negative) Lyme IgG (Western Blot) (NEGATIVE) Lyme IgG 18 kDa Band Lyme IgG 23 kDa Band Lyme IgG 28 kDa Band Lyme IgG 30 kDa Band Lyme IgG 39 kDa Band Lyme IgG 41 kDa Band Lyme IgG 45 kDa Band Lyme IgG 58 kDa Band Lyme IgG 66 kDa Band Lyme IgG 93 kDa Band Lyme IgM Ab (WB) (NEGATIVE) Lyme Disease IgM Ab (Negative) Lyme IgM 23 kDa Band Lyme IgM 39 kDa Band Lyme IgM 41 kDa Band COVID-19 Eval Order SARS-CoV-2 (PCR) (Negative) Imaging Data Attestation: I personally reviewed and interpreted this imaging study as follows: ECG Data Attestation: I personally reviewed and interpreted this ECG as follows: Indication: + abdominal pain Rate (beats per minute): 96 Rhythm: + normal sinus ECG Intervals/blocks: + Normal QRS, + Normal QT and + Normal NC ECG [place]: + Normal ECG ST segments: + Normal ST segments ECG Findings: no PACs and no PVCs Comparison ECG Date: from (12/26/20) Change: the following changes noted (PACs are now absent) MDM Narrative This patient comes in as described above. 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 He is here for treatment and evaluation of abdominal pain and. He looks uncomfortable his blood pressure and pulse are stable. He was given a small fluid bolus initially of 250 cc given his history of CHF. Chest x-ray was obtained multiple blood testing was obtained I obtained i-STAT labs to get a quick CAT scan. Blood cultures and lactic acid were obtained. He was given empiric Zosyn 4.5 g IV. Covid testing was also obtained Hiis blood work was unremarkable with tickborn illness bloodwork pending. His Covid was negative. CAT scan abdomen does not show any acute abnormalities. With IV fluids and antibiotics, heat and antipyretic management, he seems to be doing quite a bit better his temperatures come down. I do think he needs to be admitted/observed for further inpatient treatment and evaluation given concern for sepsis. I have consulted Dr. Faulkner to see the patient in the ED. Continuous cardiac monitoring: An order was placed in the EMR for continuous cardiac monitoring given the concern for sepsis, the patient was noted to be in normal sinus rhythm with a rate of 80 upon my interpretation. Impression & Plan Sepsis, Abdominal pain, Lab test negative for COVID-19 virus, Hx of chronic heart failure Discharge Plan Visit Data Chief Complaint: Abdominal Pain Stated Complaint: FEVER,DIZZY,CONFUSION ED Provider: Eusebio Hanley Discharge Problem: Sepsis, Abdominal pain, Lab test negative for COVID-19 virus, Hx of chronic heart failure Patient Disposition: Admitted As Inpatient Condition: Good Discharge Instructions Interventions: ED Discharge Assessment Last Done: 04/28/21 02:14 Discharge Problem: Sepsis Qualifiers: Sepsis type: sepsis due to unspecified organism Sepsis acute organ dysfunction status: unspecified Qualified Code(s): A41.9 - Sepsis, unspecified organism Abdominal pain Qualifiers: Abdominal location: generalized Qualified Code(s): R10.84 - Generalized abdominal pain
[2021-04-27 20:56] LABS: Hematocrit (blood only) 40.1 % (42-52); Hemoglobin 13.6 g/dL (14.0-18.0); Immature Granulocytes # (auto) 0.01 K/uL (0.00-0.02); Immature Granulocytes % (auto) 0.2 %; Lymphocytes # (auto) 0.61 K/uL (1.2-3.4); Lymphocytes % (auto) 9.8 %; Mean Corpuscular Hgb Conc 33.9 g/dL (32-36); Mean Corpuscular Volume 88.5 fL (80-100); Mean Platelet Volume 9.1 fL (7.4-10.4); Monocytes # (auto) 0.19 K/uL (0.11-0.59); Neutrophils # (auto) 5.42 K/uL (1.4-6.5); Platelet Count 152 K/uL (130-400); RDW Coefficient of Variation 15.1 % (11.5-14.5); RDW Standard Deviation 49.2 fL (36.4-46.3); Red Blood Count 4.53 M/uL (4.7-6.1); White Blood Count 6.23 K/uL (4.8-10.8)
[2021-04-27] MEDS ORDERED: OPTIRAY 320 100ml IV ONE (20:57)
[2021-04-27 21:16] LABS: INR 1.2 (0.9-1.1); Partial Thromboplastin Time 26.2 Seconds (21.0-31.0); Prothrombin Time 11.9 Seconds (9.0-12.0)
[2021-04-27 21:17] LABS: Alanine Aminotransferase 47 U/L (12-78); Albumin Level 3.8 gm/dl (3.4-5.0); Aspartate Aminotransferase 32 U/L (15-37); BUN Creatinine Ratio 18.1 (10-20); Blood Urea Nitrogen 22 mg/dl (7-18); Calcium 9.1 mg/dl (8.5-10.1); Carbon Dioxide 25 mmol/L (21-32); Chloride 101 mmol/L (98-107); Creatinine Clr Calc Pharmacy 72.7 ml/min; Est GFR (African American) 68.3 ml/min; Est GFR (Non-African American) 58.9 ml/min; Glucose 137 mg/dl (70-99); Magnesium 2.1 mg/dl (1.8-2.4); Potassium 3.8 mmol/L (3.5-5.1); Sodium 136 mmol/L (136-145)
[2021-04-27 21:22] LABS: Albumin Globulin Ratio 0.8 (0.9-2); Alkaline Phosphatase 83 U/L (45-117); Globulin 4.5 gm/dl (2.5-4.0); Total Protein 8.3 gm/dl (6.4-8.2); Troponin I < 0.015 ng/ml (0-0.045)
[2021-04-27 22:37] LABS: Appearance Urine Clear (Clear); Bacteria Urine Automated Negative (Negative); Bilirubin Urine Negative (Negative); Blood Urine Trace (Negative); Color Urine Yellow; Glucose Urine UA Negative (Negative); Ketones Urine Negative (Negative); Leukocyte Esterase Urine Negative (Negative); Nitrite Urine Negative (Negative); Protein Urine Negative (Negative); RBC Urine Automated 0-4 /hpf (0-4); Specific Gravity Urine > 1.045 (1.000-1.030); Urobilinogen Urine Negative (Negative)
[2021-04-27 23:11] LABS: Lipase 125 U/L (73-393)
[2021-04-28 00:49] LABS: iSTAT Creatinine 1.1 mg/dl (0.6-1.3); iSTAT Hemoglobin 13.6 g/dl (14.0-18.0); iSTAT Ionized Calcium 1.14 mmol/l (1.12-1.32); iSTAT Potassium 3.9 mmol/L (3.3-5.0)
[2021-04-28] MEDS ORDERED: KETOROLAC TROMETHAMINE 15 MG/ML VIAL IV ONE (00:56)
--- NOTE | 2021-04-28 00:59 | History & Physical Report ---
Date of Service April 28, 2021 Assessment & Plan (1) Fever: Secondary to mild dehydration from viral illness Equivocal Lyme screen Hypertension, slightly elevated hx CAD status post stent (12/2018) hyperlipidemia on statin Rx DM2 on oral medications, well-controlled as of recent outpatient hemoglobin A1c was 6.3, February 2021 chronic anemia, hemoglobin at baseline AIDEN on CPAP past tobacco abuse OBS GMF IVF Doxycycline for now May need ID consultation for equivocal Lyme screen ISS BG goal [id number] DVT prophylaxis. Lovenox subcu Full code Patient's requesting updates from providers. Ms. Chrissy Wood, contact #[phone]. Text document was generated using TRAKLOK voice recognition software. It may contain grammatical or spelling errors. Kindly contact undersigned for clarification of any documentation item in question. History of Present Illness Chief Complaint: Fever, chills Primary Care Provider: Russ Crane MD History obtained from patient and records. Medical history significant for CAD status post stent (12/2018), hypertension, hyperlipidemia, DM2 on oral medications, chronic anemia (baseline hemoglobin 12- 13), AIDEN on CPAP, chronic tremors, past tobacco abuse. Last confinement December 2020 for septicemia secondary to cholecystitis. Patient underwent cholecystectomy. Patient experienced achy central abdominal pain with nausea and emesis. No diarrhea. Fever chills at home. Patient denies chest pain, S OB. No recent COVID-19 contacts. No known recent tick exposure. Patient brought by to the ER for evaluation. Patient given Zosyn. 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 Allergies Allergy/AdvReac Type Severity Reaction Status Date / Time No Known Allergies Allergy U Unverified 04/27/21 21:08 Home Medications Medication Instructions Recorded Confirmed Type allopurinol 300 mg PO PM 05/24/19 04/27/21 History amlodipine 5 mg PO QAM 05/24/19 04/27/21 History atorvastatin 80 mg PO PM 05/24/19 04/27/21 History clopidogrel 75 mg PO QAM 05/24/19 04/27/21 History fluticasone propionate 2 spray INTRANASAL QAM 05/24/19 04/27/21 History losartan 100 mg PO QAM 05/24/19 04/27/21 History pantoprazole 40 mg PO QAM 05/24/19 04/27/21 History aspirin 81 mg PO DAILY 12/20/20 04/27/21 History ezetimibe 10 mg PO DAILY 12/20/20 04/27/21 History furosemide 40 mg PO DAILY 12/20/20 04/27/21 History metformin 1,000 mg PO BID 12/20/20 04/27/21 History propranolol 40 mg PO BID 12/21/20 04/27/21 History ifiicgrs-gywwj-rwq9-C-dru-bor 1 tab PO BID 04/27/21 04/27/21 History [Tckznckfvjl-Jahin-MPN Complex] loratadine 10 mg PO DAILY 04/27/21 04/27/21 History nitroglycerin [Nitrostat] 0.4 mg SUBLINGUAL UD PRN 04/27/21 04/27/21 History omega 3-snn-fga-fish oil [Fish Oil] 1 cap PO DAILY 04/27/21 04/27/21 History spironolactone 25 mg PO DAILY 04/27/21 04/27/21 History Past Med/Surg History Medical History CAD (coronary artery disease) Status post drug-eluting stent to the proximal left anterior descending, drug-eluting stent to the mid right coronary artery after rotablation. Re sidual 100% left circumflex proximal occlusion December 26, 2018 Difficult airway for intubation DMII (diabetes mellitus, type 2) GERD (gastroesophageal reflux disease) Gout Hyperlipidemia Hypertension Morbid obesity Obstructive sleep apnea on CPAP Squamous cell carcinoma Surgical History Hx laparoscopic cholecystectomy (12/24/20) Laparoscopic Cholecystectomy with Cholangiogram Dr. 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 Other Information That Helps Us Care for You: No Feels Safe at Home: Yes Safety Concerns: Feels Safe At This Time Assistive Devices: CPAP Review of Systems Review of Systems: As per HPI, all 10 systems reviewed, chronic left shoulder pain, all other ROS negative Physical Exam Physical Exam: GENERAL: uncomfortable, shaking, morbidly obese, no respiratory distress SKIN: Pallor, warm HEENT: Alopecia, pale palpebral conjunctivae, no ptosis, dry buccal mucosa NECK : Supple, short neck, no tenderness CHEST : Decreased breath sounds, no tenderness HEART : RRR, no obvious murmurs ABDOMEN: Some distention, minimal central abdominal tenderness EXTREMITIES : Minimal LE swelling, no LE tenderness, no other conspicuous deformities noted NEUROLOGIC : Coherent, no facial asymmetry, no other gross focality Results & Data Results & Data ([facility]) Vital Signs (Past 12 Hours) Vital Signs Temp Pulse Pulse Resp BP BP Pulse Ox 04/27/21 23:30 76 20 124/57 L 95 04/27/21 23:00 80 20 129/59 L 93 04/27/21 22:30 80 20 104/61 94 04/27/21 22:10 37.6 C H 85 23 93 04/27/21 22:00 77 18 116/67 94 04/27/21 21:30 89 18 120/62 95 04/27/21 21:27 90 24 112/63 94 04/27/21 21:18 94 04/27/21 21:16 82 22 120/63 95 04/27/21 20:48 95 04/27/21 20:25 39.1 C H 101 H 20 150/79 H 95 04/27/21 19:06 37.5 C 97 H 20 126/73 94 Laboratory Results Laboratory Results WBC 6.23 K/uL (4.8-10.8) 04/27/21 20:30 RBC 4.53 M/uL (4.7-6.1) L 04/27/21 20:30 Hgb 13.6 g/dL (14.0-18.0) L 04/27/21 20:30 POC Hgb 13.6 g/dl (14.0-18.0) L 04/27/21 20:48 Hct 40.1 % (42-52) L 04/27/21 20:30 POC Hct 40 % (42-52) L 04/27/21 20:48 MCV 88.5 fL (80-100) 04/27/21 20:30 MCH 30.0 pg (25-34) 04/27/21 20:30 MCHC 33.9 g/dL (32-36) 04/27/21 20:30 RDW Std Deviation 49.2 fL (36.4-46.3) H 04/27/21 20:30 RDW Coeff of Hasmukh 15.1 % (11.5-14.5) H 04/27/21 20:30 Plt Count 152 K/uL (130-400) 04/27/21 20:30 MPV 9.1 fL (7.4-10.4) 04/27/21 20:30 Immature Gran % (Auto) 0.2 % 04/27/21 20:30 Neut % (Auto) 87.0 % 04/27/21 20:30 Lymph % (Auto) 9.8 % 04/27/21 20:30 Ray % (Auto) 3.0 % 04/27/21 20:30 Eos % (Auto) 0.0 % 04/27/21 20:30 Baso % (Auto) 0.0 % 04/27/21 20:30 Neut # (Auto) 5.42 K/uL (1.4-6.5) 04/27/21 20:30 Lymph # (Auto) 0.61 K/uL (1.2-3.4) L 04/27/21 20:30 Ray # (Auto) 0.19 K/uL (0.11-0.59) 04/27/21 20:30 Eos # (Auto) 0.00 K/uL (0-0.5) 04/27/21 20:30 Baso # (Auto) 0.00 K/uL (0-0.2) 04/27/21 20:30 Immature Gran # (Auto) 0.01 K/uL (0.00-0.02) 04/27/21 20:30 PT 11.9 Seconds (9.0-12.0) 04/27/21 20:30 INR 1.2 (0.9-1.1) H 04/27/21 20:30 APTT 26.2 Seconds (21.0-31.0) 04/27/21 20:30 PTT Ratio 1.0 04/27/21 20:30 POC Sodium 138 mmol/L (135-144) 04/27/21 20:48 Sodium 136 mmol/L (136-145) 04/27/21 20:30 POC Potassium 3.9 mmol/L (3.3-5.0) 04/27/21 20:48 Potassium 3.8 mmol/L (3.5-5.1) 04/27/21 20:30 POC Chloride 98 mmol/L (101-112) L 04/27/21 20:48 Chloride 101 mmol/L (98-107) 04/27/21 20:30 Carbon Dioxide 25 mmol/L (21-32) 04/27/21 20:30 POC Total CO2 24 mmol/L (24-31) 04/27/21 20:48 Anion Gap 9.0 (3-11) 04/27/21 20:30 POC Anion Gap 21.0 mmol/L (16-25) 04/27/21 20:48 POC BUN 21 mg/dl (7-18) H 04/27/21 20:48 BUN 22 mg/dl (7-18) H 04/27/21 20:30 Creatinine 1.24 mg/dl (0.6-1.4) 04/27/21 20:30 POC Creatinine 1.1 mg/dl (0.6-1.3) 04/27/21 20:48 Est Cr Clr Drug Dosing 72.7 ml/min 04/27/21 20:30 Est GFR ( Amer) 68.3 ml/min 04/27/21 20:30 Est GFR (Non-Af Amer) 58.9 ml/min 04/27/21 20:30 BUN/Creatinine Ratio 18.1 (10-20) 04/27/21 20:30 Glucose 137 mg/dl (70-99) H 04/27/21 20:30 POC Glucose (other) 146 mg/dl (70-99) H 04/27/21 20:48 Lactate 1.9 mmol/L (0.4-2.0) 04/27/21 20:30 Calcium 9.1 mg/dl (8.5-10.1) 04/27/21 20:30 POC Ioniz Calcium Dania 1.14 mmol/l (1.12-1.32) 04/27/21 20:48 Magnesium 2.1 mg/dl (1.8-2.4) 04/27/21 20:30 Total Bilirubin 1.0 mg/dl (0.2-1) 04/27/21 20:30 AST 32 U/L (15-37) 04/27/21 20:30 ALT 47 U/L (12-78) 04/27/21 20: Alkaline Phosphatase 83 U/L (45-117) 04/27/21 20:30 Troponin I < 0.015 ng/ml (0-0.045) 04/27/21 20: Total Protein 8.3 gm/dl (6.4-8.2) H 04/27/21 20: Albumin 3.8 gm/dl (3.4-5.0) 04/27/21 20: Globulin 4.5 gm/dl (2.5-4.0) H 04/27/21 20: Albumin/Globulin Ratio 0.8 (0.9-2) L 04/27/21 20: Lipase 125 U/L (73-393) 04/27/21 20: Procalcitonin 0.49 ng/ml (0-0.5) 04/27/21 20: Urine Color Yellow 04/27/21 22: Urine Appearance Clear (Clear) 04/27/21 22: Urine pH 5.0 (4.5-7.5) 04/27/21 22: Ur Specific Grant > 1.045 (1.000-1.030) H 04/27/21 22: Urine Protein Negative (Negative) 04/27/21 22: Urine Glucose (UA) Negative (Negative) 04/27/21 22: Urine Ketones Negative (Negative) 04/27/21 22: Urine Blood Trace (Negative) H 04/27/21 22: Urine Nitrite Negative (Negative) 04/27/21: Urine Bilirubin Negative (Negative) 04/27/21 22: Urine Urobilinogen Negative (Negative) 04/27/21 22: Ur Leukocyte Esterase Negative (Negative) 04/27/21 22: Urine WBC (Auto) 1-5 /hpf (0-5) 04/27/21 22:26 Urine RBC (Auto) 0-4 /hpf (0-4) 04/27/21 22:26 U Hyaline Cast (Auto) 1-5 /lpf (0-5) 04/27/21 22:26 U Epithel Cells (Auto) 5-10 /lpf (0-5) H 04/27/21 22:26 Urine Bacteria (Auto) Negative (Negative) 04/27/21 22:26 COVID-19 Eval Order Covid19 at [facility] 04/27/21 21:17 SARS-CoV-2 (PCR) NEGATIVE (Negative) 04/27/21 21:17 Diagnostic Findings Chest x-ray as per my interpretation atelectasis CT abdomen pelvis initial read: Mild subpleural atelectasis, possible early pulmonary fibrosis. Normal cardiac size. Laparoscopic cholecystectomy. Small left liver lobe cyst. Pancreas spleen are normal. Normal right adrenal gland. Small nodule left adrenal gland. Several left kidney cyst. Atherosclerotic disease of aorta with no aneurysm. Unremarkable stomach. Mild nonspecific distention of small bowel loops with no bowel dilatation to suggest obstruction. Normal appendix. Diverticulosis. No diverticulitis. Small fat-containing umbilical hernia. EKG as per my interpretation :Rate 95, NSR, normal axis, incomplete RBBB, T wave abnormalities inferior and septal leads
[2021-04-28] MEDS ORDERED: NSS + 20MEQ KCL 20 MEQ/1,000 ML BAG IV ONE (01:06)
[2021-04-28 01:36] LABS: Lyme Ab IgG w/WB Rflx Negative (Negative)
[2021-04-28 01:42] LABS: Lyme Ab IgM w/WB Rflx Equivocal (Negative)
[2021-04-28] MEDS ORDERED: PROMETHAZINE HCL 12.5 MG in SODIUM CHLORIDE 0.9% 50 ML IV PRN (02:30)
[2021-04-28] MEDS ORDERED: GLUCOSE 40% GEL 15 GM TUBE PO PRN (02:30)
[2021-04-28] MEDS ORDERED: CARBOHYDRATES FOR HYPOGLYCEMIA PO PRN (02:30)
[2021-04-28] MEDS ORDERED: DEXTROSE 50% 50 ML SYRINGE IV PRN (02:30)
[2021-04-28] MEDS ORDERED: GLUCAGON FOR INJ 1 MG VIAL SQ PRN (02:30)
[2021-04-28] MEDS ORDERED: GLUCOSE 10 TABS/TUBE PO PRN (02:30)
[2021-04-28] MEDS: INSULIN ASPART 100 UNITS/ML 3 ML PEN SC SCH ×5 (04:38→20:53)
[2021-04-28] MEDS ORDERED: DOXYCYCLINE HYCLATE 100 MG in DEXTROSE 5% 100 ML IV STA (05:28)
[2021-04-28 07:10] LABS: Basophils # (auto) 0.01 K/uL (0-0.2); Basophils % (auto) 0.2 %; Hematocrit (blood only) 37.9 % (42-52); Hemoglobin 12.7 g/dL (14.0-18.0); Immature Granulocytes # (auto) 0.01 K/uL (0.00-0.02); Immature Granulocytes % (auto) 0.2 %; Lymphocytes # (auto) 0.32 K/uL (1.2-3.4); Lymphocytes % (auto) 6.1 %; Mean Corpuscular Hemoglobin 29.3 pg (25-34); Mean Corpuscular Hgb Conc 33.5 g/dL (32-36); Mean Corpuscular Volume 87.5 fL (80-100); Mean Platelet Volume 9.9 fL (7.4-10.4); Monocytes # (auto) 0.36 K/uL (0.11-0.59); Monocytes % (auto) 6.9 %; Neutrophils # (auto) 4.51 K/uL (1.4-6.5); Neutrophils % (auto) 86.6 %; Platelet Count 120 K/uL (130-400); RDW Coefficient of Variation 15.2 % (11.5-14.5); Red Blood Count 4.33 M/uL (4.7-6.1); White Blood Count 5.21 K/uL (4.8-10.8)
[2021-04-28 07:43] LABS: Albumin Level 3.4 gm/dl (3.4-5.0); BUN Creatinine Ratio 18.2 (10-20); Calcium 8.4 mg/dl (8.5-10.1); Creatinine Clr Calc Pharmacy 72.2 ml/min; Est GFR (African American) 67.7 ml/min; Est GFR (Non-African American) 58.4 ml/min; Potassium 3.5 mmol/L (3.5-5.1)
[2021-04-28 07:46] LABS: Albumin Globulin Ratio 0.9 (0.9-2); Bilirubin,Total 1.1 mg/dl (0.2-1); Total Protein 7.4 gm/dl (6.4-8.2)
--- NOTE | 2021-04-28 08:42 | CT Scan Report ---
ABDOMEN AND PELVIS CT WITH IV CONTRAST CT DOSE: 1149.85 mGycm HISTORY: Acute upper abdominal pain with fever upper abd pain, fever TECHNIQUE: Multiaxial CT images of the abdomen and pelvis were performed following the IV administrat ion of 93 cc of Optiray, A dose lowering technique was utilized adhering to the principles of ALARA. COMPARISON STUDY: Chest radiograph of same day, CT abdomen pelvis 12/20/2020. FINDINGS: Coronary artery calcifications. Mild subpleural reticulation of the lung bases suggestive o f atelectasis/fibrosis. 7 mm solid nodule of the basal right lower lobe on image 16 is unchanged. No pneumatosis or pneumoperitoneum. The spleen is enlarged measuring 16.2 cm. Unremarkable pancreas and right adrenal gland. 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 Cholecystectomy. Suggested hepatic steatosi s. 2.37 m cyst of the left hepatic lobe. 1.5 cm hypodense lesion of the inferior right hepatic lobe i s suggestive of an additional cyst. Patency of the hepatic and portal veins. Bilateral renal cysts measuring up to 2.3 cm on the right. Exophytic lesion of the posterior interpol ar left kidney measuring 3.6 x 3.4 cm with Hounsfield of 26 is suggestive of a probable additional cy st. No urolith or hydronephrosis. Coarse calcifications of the central prostate. Unremarkable urinary bladder. Extensive atherosclerotic plaque the abdominal aorta and branch vessels. There is no adenop athy. No bowel obstruction or bowel wall thickening. Colonic diverticulosis. Normal appendix. No ascites or mesenteric inflammation. Fat filled periumbilical hernia with diastases of 2.2 cm. No acute fracture . Degenerative changes of the spine, pelvis and hips. IMPRESSION: 1. No acute intra-abdominal or intrapelvic abnormality. 2. Colonic diverticulosis. 3. Additional findings as above. ACT 112: Negative or not required by law. The above report was generated using voice recognition software. It may contain grammatical, syntax o r spelling errors. Electronically signed by: Nabil Howard M.D. 04/28/2021 8:40 AM
--- NOTE | 2021-04-28 08:44 | XRay Report ---
XR chest 1V portable CLINICAL HISTORY: SEPSIS COMPARISON STUDY: December 23, 2020 FINDINGS: No pneumothorax. No pleural effusion. Evaluation is limited due to motion artifact. No large infiltrates or consolidative lesions are seen. Small atelectasis is seen at the left base. M ild diffuse prominence of pulmonary interstitium is seen bilaterally. Cardiomediastinal silhouette is within normal limits in size. No significant pulmonary vascular congestion.. Aorta is calcified Osseous structures: Degenerative changes of the spine. IMPRESSION: 1. Small atelectasis at the left base. Diffuse prominence of pulmonary interstitium. 2. Atherosclerosis. ACT 112: Negative or not required by law. The above report was generated using voice recognition software. It may contain grammatical, syntax o r spelling errors. Electronically signed by: Aline Soto DO 04/28/2021 8:42 AM
[2021-04-28] MEDS: PROPRANOLOL HCL 20 MG TAB PO SCH ×2 (08:51→20:52)
[2021-04-28] MEDS: EZETIMIBE 10 MG TABLET PO SCH (08:52)
[2021-04-28] MEDS: ASPIRIN 81 MG ECTAB PO SCH (08:52)
[2021-04-28] MEDS: LOSARTAN POTASSIUM 50 MG TAB PO SCH (08:52)
[2021-04-28] MEDS: amLODIPine BESYLATE 5 MG TAB PO SCH (08:52)
[2021-04-28] MEDS: LORATADINE 10 MG TAB PO SCH (08:52)
[2021-04-28] MEDS: PANTOprazole 40 MG TAB PO SCH (08:52)
[2021-04-28] MEDS: ENOXAPARIN INJ 40 MG/0.4 ML SYR SQ SCH (08:53)
[2021-04-28] MEDS: CLOPIDOGREL BISULFATE 75 MG TAB PO SCH (08:53)
[2021-04-28] MEDS: FLUTICASONE PROPIONATE NA SPR 16 GM BTL SCH (08:53)
[2021-04-28] MEDS: ACETAMINOPHEN 325 MG TAB PO PRN ×2 (09:15→17:11)
--- NOTE | 2021-04-28 12:58 | Hospitalist Progress Note ---
Date of Service April 28, 2021 Assessment & Plan (1) Fever: Secondary to mild dehydration from viral illness Equivocal Lyme screen Hypertension, slightly elevated hx CAD status post stent (12/2018) hyperlipidemia on statin Rx DM2 on oral medications, well-controlled as of recent outpatient hemoglobin A1c was 6.3, February 2021 chronic anemia, hemoglobin at baseline AIDEN on CPAP past tobacco abuse Medical telemetry given uncontrolled blood pressure IVF Doxycycline for now May need ID consultation for equivocal Lyme screen ISS BG goal [id number] DVT prophylaxis. Lovenox subcu Full code Labs checked ROS-No Headache, No Visual Changes, No Nausea, No Vomiting, No Fever, No Chills, No Neck Pain or Stiffness, No Chest Pain, No Palpitations, No SOB, No GONZALEZ, No Cough, No Sputum, No Wheezing, No Abdominal Pain, No Diarrhea, No Hematemesis, No Hemoptysis, No Unexpected Weight Loss, No Flank pain, No Melena, No Hematochezia, No Frequency, No Urgency, No Burning, No Hematuria, No Rashes, No Diaphoresis. Appetite is Normal, Weak Physical Exam Gen-AAO x 3, NAD, Afebrile Head-NCAT, EOMI, PERRLA, Anicteric Sclera, No Posterior Pharyngeal Erythema Neck-Supple, No JVD, No Thyromegaly, No Masses, No LAD, No Bruits Lungs-Clear to Auscultation Bilaterally, No Rales, No Rhonchi, No Wheezing, No Crepitus Chest-No S4, +S1, +S2, No S3, No Murmurs, No Rubs, No Gallops, No Ectopy Abdomen-Soft, Bowel Sounds Present, Non Tender, Non Distended, No Hepatomegaly, No Splenomegaly, No Palpable Masses, No Rebound, No Rigidity, No Guarding Musculoskeletal-Full Range of Motion Bilaterally, No CVAT Extremities-No Cyanosis, No Clubbing, No Edema Nuero-Cranial Nerves II-XII grossly intact, Motor WNL, DTRs WNL, Strength WNL, Non Focal Psych-Normal Mood Admission and Anticipated Discharge Date Admission Date: April 28, 2021 Results & Data Results & Data ([facility]) Vital Signs (Past 12 Hours) Vital Signs Temp Pulse Pulse Resp BP BP Pulse Ox 04/28/21 07:33 36.9 C 99 H 19 150/84 H 94 04/28/21 05:23 36.5 C 112 H 18 152/72 H 94 04/28/21 02:43 36.7 C 94 H 18 126/68 94 04/28/21 02:00 93 H 22 99/60 L 94 04/28/21 01:30 92 H 22 129/67 100 04/28/21 01:01 87 22 130/72 95
--- NOTE | 2021-04-28 14:23 | Electrocardiogram Report ---
Test Reason : Blood Pressure : / mmHG Vent. Rate : 096 BPM Atrial Rate : 096 BPM P-R Int : 172 ms QRS Dur : 088 ms QT Int : 344 ms P-R-T Axes : 029 006 002 degrees QTc Int : 434 ms Normal sinus rhythm Normal ECG When compared with ECG of 26-DEC-2020 06:51, Premature ventricular complexes are no longer Present Confirmed by Mark Dozier ([id number]) on 04/28/2021 2:23:37 PM Referred By: REFERRED SELF Confirmed By:Mark Dozier
[2021-04-28] MEDS: DOXYCYCLINE HYCLATE 100 MG CAP PO SCH (20:50)
[2021-04-28] MEDS: allopurinoL 300 MG TAB PO SCH (20:51)
[2021-04-28] MEDS: ATORVASTATIN 40 MG TAB PO SCH (20:51)
[2021-04-29] MEDS: ACETAMINOPHEN 325 MG TAB PO PRN (04:27)
[2021-04-29 06:57] LABS: BUN Creatinine Ratio 18.2 (10-20); Calcium 8.4 mg/dl (8.5-10.1); Est GFR (African American) 91.9 ml/min; Est GFR (Non-African American) 79.3 ml/min; Potassium 3.7 mmol/L (3.5-5.1)
[2021-04-29 07:03] LABS: Hematocrit (blood only) 36.9 % (42-52); Hemoglobin 12.4 g/dL (14.0-18.0); Mean Corpuscular Hemoglobin 29.3 pg (25-34); Mean Corpuscular Hgb Conc 33.6 g/dL (32-36); Mean Corpuscular Volume 87.2 fL (80-100); RDW Coefficient of Variation 15.1 % (11.5-14.5); RDW Standard Deviation 48.8 fL (36.4-46.3); Red Blood Count 4.23 M/uL (4.7-6.1); White Blood Count 4.02 K/uL (4.8-10.8)
[2021-04-29 07:25] LABS: Mean Platelet Volume 8.9 fL (7.4-10.4); Platelet Count 97 K/uL (130-400); Platelet Estimate Decreased (Normal)
[2021-04-29] MEDS: CLOPIDOGREL BISULFATE 75 MG TAB PO SCH (09:34)
[2021-04-29] MEDS: amLODIPine BESYLATE 5 MG TAB PO SCH (09:34)
[2021-04-29] MEDS: PANTOprazole 40 MG TAB PO SCH (09:34)
[2021-04-29] MEDS: ASPIRIN 81 MG ECTAB PO SCH (09:34)
[2021-04-29] MEDS: LORATADINE 10 MG TAB PO SCH (09:34)
[2021-04-29] MEDS: EZETIMIBE 10 MG TABLET PO SCH (09:34)
[2021-04-29] MEDS: LOSARTAN POTASSIUM 50 MG TAB PO SCH (09:34)
[2021-04-29] MEDS: DOXYCYCLINE HYCLATE 100 MG CAP PO SCH ×2 (09:34→19:58)
[2021-04-29] MEDS: ENOXAPARIN INJ 40 MG/0.4 ML SYR SQ SCH (09:35)
[2021-04-29] MEDS: FLUTICASONE PROPIONATE NA SPR 16 GM BTL SCH (09:35)
[2021-04-29] MEDS: PROPRANOLOL HCL 20 MG TAB PO SCH ×2 (09:35→19:58)
[2021-04-29] MEDS: INSULIN ASPART 100 UNITS/ML 3 ML PEN SC SCH ×4 (10:07→21:05)
--- NOTE | 2021-04-29 11:32 | Hospitalist Progress Note ---
Date of Service April 29, 2021 Assessment & Plan (1) Fever: Secondary to mild dehydration from viral illness Equivocal Lyme screen Anaplasmosis Screen pending Continue Doxy Abd pain gone Hypertension, slightly elevated CAD status post stent (12/2018) Hyperlipidemia on statin Rx DM2 on oral medications, well-controlled as of recent outpatient hemoglobin A1c was 6.3, February 2021 chronic anemia, hemoglobin at baseline AIDEN on CPAP past tobacco abuse Medical telemetry given uncontrolled blood pressure IVF Doxycycline for now ISS BG goal [id number] DVT prophylaxis. Lovenox subcu Full code Labs checked ROS-No Headache, No Visual Changes, No Nausea, No Vomiting, + Fever, No Chills, No Neck Pain or Stiffness, No Chest Pain, No Palpitations, No SOB, No GONZALEZ, No Cough, No Sputum, No Wheezing, No Abdominal Pain, No Diarrhea, No Hematemesis, No Hemoptysis, No Unexpected Weight Loss, No Flank pain, No Melena, No Hematochezia, No Frequency, No Urgency, No Burning, No Hematuria, No Rashes, No Diaphoresis. Appetite is Normal, Weak Physical Exam Gen-AAO x 3, NAD, febrile Head-NCAT, EOMI, PERRLA, Anicteric Sclera, No Posterior Pharyngeal Erythema Neck-Supple, No JVD, No Thyromegaly, No Masses, No LAD, No Bruits Lungs-Clear to Auscultation Bilaterally, No Rales, No Rhonchi, No Wheezing, No Crepitus Chest-No S4, +S1, +S2, No S3, No Murmurs, No Rubs, No Gallops, No Ectopy Abdomen-Soft, Bowel Sounds Present, Non Tender, Non Distended, No Hepatomegaly, No Splenomegaly, No Palpable Masses, No Rebound, No Rigidity, No Guarding Musculoskeletal-Full Range of Motion Bilaterally, No CVAT Extremities-No Cyanosis, No Clubbing, No Edema Nuero-Cranial Nerves II-XII grossly intact, Motor WNL, DTRs WNL, Strength WNL, Non Focal Psych-Normal Mood Admission and Anticipated Discharge Date Admission Date: April 28, 2021 Results & Data Results & Data ([facility]) Vital Signs (Past 12 Hours) Vital Signs Temp Pulse Resp BP Pulse Ox 04/29/21 07:05 36.8 C 70 18 133/69 96
[2021-04-29] MEDS ORDERED: NITROGLYCERIN SL 0.4 MG/TAB TAB SL PRN (11:47)
[2021-04-29] MEDS ORDERED: FUROSEMIDE 40 MG TAB PO PRN (12:01)
[2021-04-29] MEDS: allopurinoL 300 MG TAB PO SCH (19:57)
[2021-04-29] MEDS: ATORVASTATIN 40 MG TAB PO SCH (19:57)
[2021-04-29] MEDS ORDERED: GLUCOSAM CHOND MSM1 C MANG BOR PO SCH (21:00)
[2021-04-30 06:36] LABS: Basophils # (auto) 0.01 K/uL (0-0.2); Basophils % (auto) 0.3 %; Eosinophils # (auto) 0.05 K/uL (0-0.5); Eosinophils % (auto) 1.5 %; Hematocrit (blood only) 37.3 % (42-52); Hemoglobin 12.1 g/dL (14.0-18.0); Immature Granulocytes # (auto) 0.01 K/uL (0.00-0.02); Immature Granulocytes % (auto) 0.3 %; Lymphocytes # (auto) 0.84 K/uL (1.2-3.4); Lymphocytes % (auto) 24.8 %; Mean Corpuscular Hemoglobin 28.7 pg (25-34); Mean Corpuscular Hgb Conc 32.4 g/dL (32-36); Mean Corpuscular Volume 88.4 fL (80-100); Mean Platelet Volume 9.8 fL (7.4-10.4); Monocytes # (auto) 0.63 K/uL (0.11-0.59); Monocytes % (auto) 18.6 %; Neutrophils # (auto) 1.85 K/uL (1.4-6.5); Neutrophils % (auto) 54.5 %; Platelet Count 106 K/uL (130-400); RDW Coefficient of Variation 15.2 % (11.5-14.5); RDW Standard Deviation 48.8 fL (36.4-46.3); Red Blood Count 4.22 M/uL (4.7-6.1); White Blood Count 3.39 K/uL (4.8-10.8)
[2021-04-30 07:11] LABS: BUN Creatinine Ratio 22.4 (10-20); Calcium 8.7 mg/dl (8.5-10.1); Creatinine Clr Calc Pharmacy 89.3 ml/min; Est GFR (African American) 87.6 ml/min; Est GFR (Non-African American) 75.5 ml/min; Potassium 3.6 mmol/L (3.5-5.1)
[2021-04-30 07:14] LABS: Albumin Globulin Ratio 0.8 (0.9-2); Bilirubin,Total 0.9 mg/dl (0.2-1); Globulin 3.9 gm/dl (2.5-4.0); Total Protein 6.9 gm/dl (6.4-8.2)
[2021-04-30] MEDS: PROPRANOLOL HCL 20 MG TAB PO SCH (08:32)
[2021-04-30] MEDS: DOXYCYCLINE HYCLATE 100 MG CAP PO SCH (08:32)
[2021-04-30] MEDS: LORATADINE 10 MG TAB PO SCH (08:32)
[2021-04-30] MEDS: EZETIMIBE 10 MG TABLET PO SCH (08:33)
[2021-04-30] MEDS: ASPIRIN 81 MG ECTAB PO SCH (08:33)
[2021-04-30] MEDS: amLODIPine BESYLATE 5 MG TAB PO SCH (08:33)
[2021-04-30] MEDS: CLOPIDOGREL BISULFATE 75 MG TAB PO SCH (08:33)
[2021-04-30] MEDS: LOSARTAN POTASSIUM 50 MG TAB PO SCH (08:33)
[2021-04-30] MEDS: ENOXAPARIN INJ 40 MG/0.4 ML SYR SQ SCH (08:34)
[2021-04-30] MEDS: FLUTICASONE PROPIONATE NA SPR 16 GM BTL SCH (08:34)
[2021-04-30] MEDS: PANTOprazole 40 MG TAB PO SCH (08:34)
[2021-04-30] MEDS: INSULIN ASPART 100 UNITS/ML 3 ML PEN SC SCH ×2 (08:43→12:36)
[2021-04-30] MEDS ORDERED: OMEGA-3 (PURIFIED FISH OIL) 1 GM CAP PO SCH (09:00)
[2021-04-30] MEDS ORDERED: FUROSEMIDE 40 MG TAB PO SCH (09:00)
[2021-04-30] MEDS ORDERED: SPIRONOLACTONE 25 MG TAB PO SCH (09:00)
--- NOTE | 2021-04-30 14:37 | Discharge Summary ---
Date of Service April 30, 2021 Admission HPI Per Admitting Provider History obtained from patient and records. Medical history significant for CAD status post stent (12/2018), hypertension, hyperlipidemia, DM2 on oral medications, chronic anemia (baseline hemoglobin 12- 13), AIDEN on CPAP, chronic tremors, past tobacco abuse. Last confinement December 2020 for septicemia secondary to cholecystitis. Patient underwent cholecystectomy. Patient experienced achy central abdominal pain with nausea and emesis. No diarrhea. Fever chills at home. Patient denies chest pain, S OB. No recent COVID-19 contacts. No known recent tick exposure. Patient brought by to the ER for evaluation. Patient given Zosyn. 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 Admission Exam Per Admitting Provider GENERAL: uncomfortable, shaking, morbidly obese, no respiratory distress SKIN: Pallor, warm HEENT: Alopecia, pale palpebral conjunctivae, no ptosis, dry buccal mucosa NECK : Supple, short neck, no tenderness CHEST : Decreased breath sounds, no tenderness HEART : RRR, no obvious murmurs ABDOMEN: Some distention, minimal central abdominal tenderness EXTREMITIES : Minimal LE swelling, no LE tenderness, no other conspicuous deformities noted NEUROLOGIC : Coherent, no facial asymmetry, no other gross focality Principal Diagnosis Lyme Fever: Abd pain Hypertension CAD Hyperlipidemia DM2 chronic anemia AIDEN past tobacco abuse Discharge Exam See below Discharge Data Allergies Allergy/AdvReac Type Severity Reaction Status Date / Time No Known Allergies Allergy U Unverified 04/27/21 21:08 Consultations 04/27/21 22:46 ED Decision to Admit Stat Ordered Studies 04/27/21 20:28 CT abd pelvis IV con only Stat Current Diagnoses Fever, unspecified (04/29/21) Allergies No Known Allergies Allergy (U, Unverified 04/27/21 21:08) Height/Weight/Isolation Height 5 ft 7 in Weight 129.6 kg Chemistry 04/29/21 04/30/21 06:08 05:43 Sodium 137 137 Potassium 3.7 3.6 Chloride 105 106 Carbon Dioxide 24 26 Anion Gap 9.0 5.0 BUN 18 23 H Creatinine 0.97 1.01 Glucose 131 H 108 H Microbiology 04/27/21 20:30 Blood Aerobic Blood Culture - Preliminary No growth in Aerobic bottle after 48 hours. 04/27/21 20:30 Blood Anaerobic Blood Culture - Final 04/27/21 20:30 Blood Aerobic Blood Culture - Preliminary No growth in Aerobic bottle after 48 hours. 04/27/21 20:30 Blood Anaerobic Blood Culture - Preliminary No growth in Anaerobic bottle after 48 hours. Hospital Course (1) Fever: Secondary to mild dehydration From Lyme Equivocal Lyme screen-Clinically improving on Doxy Hypertension-Controlled hx CAD status post stent (12/2018) hyperlipidemia on statin Rx DM2 on oral medications, well-controlled as of recent outpatient hemoglobin A1c was 6.3, February 2021 chronic anemia, hemoglobin at baseline AIDEN on CPAP past tobacco abuse DC Home today Full code Labs checked ROS-No Headache, No Visual Changes, No Nausea, No Vomiting, no Fever, No Chills, No Neck Pain or Stiffness, No Chest Pain, No Palpitations, No SOB, No GONZALEZ, No Cough, No Sputum, No Wheezing, No Abdominal Pain, No Diarrhea, No Hematemesis, No Hemoptysis, No Unexpected Weight Loss, No Flank pain, No Melena, No Hematochezia, No Frequency, No Urgency, No Burning, No Hematuria, No Rashes, No Diaphoresis. Appetite is Normal Physical Exam Gen-AAO x 3, NAD, febrile Head-NCAT, EOMI, PERRLA, Anicteric Sclera, No Posterior Pharyngeal Erythema Neck-Supple, No JVD, No Thyromegaly, No Masses, No LAD, No Bruits Lungs-Clear to Auscultation Bilaterally, No Rales, No Rhonchi, No Wheezing, No Crepitus Chest-No S4, +S1, +S2, No S3, No Murmurs, No Rubs, No Gallops, No Ectopy Abdomen-Soft, Bowel Sounds Present, Non Tender, Non Distended, No Hepatomegaly, No Splenomegaly, No Palpable Masses, No Rebound, No Rigidity, No Guarding Musculoskeletal-Full Range of Motion Bilaterally, No CVAT Extremities-No Cyanosis, No Clubbing, No Edema Nuero-Cranial Nerves II-XII grossly intact, Motor WNL, DTRs WNL, Strength WNL, Non Focal Psych-Normal Mood Total Time Total Time Spent Total Time Spent (In Minutes): 45 mins Total Time Includes: Examination of the Patient, Discharge Planning, Medication Reconciliation and Communication With Other Providers Discharge Plan Discharge Items Patient Disposition: Home - Self-Care Reason For Visit: FEVER Discharge Diagnosis: Lyme Fever: Abd pain Hypertension CAD Hyperlipidemia DM2 chronic anemia AIDEN past tobacco abuse Condition on Discharge: Good Health Concerns: None Lifting: Gradually increase as tolerated Bathing: No limitations Sexual Activity: When tolerated Exercise/Sports: Gradually increase as tolerated Driving/Machine Use: No limitations Weightbearing: Full weightbearing Non-emergency contact: Primary Care Provider Call non-emergency contact if: you have any medication questions Follow-up/Referrals: Russ Crane MD [Primary Care Provider] - (Date & Time 05/05/2021 2:00 PM Provider Russ Crane III, MD Department [facility] ) Diet: Heart Healthy Addtl Attending Provider Instructions: None Pending Studies at Discharge: No Stand-Alone Forms: [employer], Smoking Cessation Medications and DC Order Prescriptions: New doxycycline hyclate 100 mg Capsule 100 mg PO BID Qty: 20 RF: 0 Continued atorvastatin 80 mg tablet 80 mg PO PM RF: 0 clopidogrel 75 mg tablet 75 mg PO QAM RF: 0 amlodipine 10 mg tablet 5 mg PO QAM RF: 0 pantoprazole 40 mg tablet,delayed release (DR/EC) 40 mg PO QAM RF: 0 losartan 100 mg tablet 100 mg PO QAM RF: 0 fluticasone propionate 50 mcg/actuation spray,suspension 2 spray intranasal QAM RF: 0 allopurinol 300 mg tablet 300 mg PO PM RF: 0 furosemide 40 mg tablet 40 mg PO DAILY RF: 0 aspirin 81 mg Tablet,Delayed Release (Dr/Ec) 81 mg PO DAILY RF: 0 metformin 500 mg tablet extended release 24 hr 1,000 mg PO BID RF: 0 ezetimibe 10 mg tablet 10 mg PO DAILY RF: 0 propranolol 40 mg Tablet 40 mg PO BID RF: 0 spironolactone 25 mg tablet 25 mg PO DAILY RF: 0 nitroglycerin [Nitrostat] 0.4 mg Tablet, Sublingual 0.4 mg sublingual UD PRN (Reason: Chest Pain) RF: 0 omega 2-jck-jrw-fish oil [Fish Oil] 1,200 (144-216) mg Capsule 1 cap PO DAILY RF: 0 loratadine 10 mg Tablet 10 mg PO DAILY RF: 0 Tisjbkynmjm-Mfesy-AIA Complex 690-379-00-0.5 mg Tablet 1 tab PO BID RF: 0 Discharge Orders: Discharge Order (Routine); Ordered 04/30/21 Ordered By: Brendon Gooden Admission Data Admit Date/Time: 04/29/21 11:32 Attending Provider: Brendon Gooden Admit Provider: Osbaldo Faulkner Primary Care Provider: Russ Crane Other Providers: Osbaldo Faulkner
[2021-05-01 03:56] LABS: 18KDIGG Band NON-REACTIVE; 23KDIGG Band NON-REACTIVE; 23KDIGM Band REACTIVE; 28KDIGG Band NON-REACTIVE; 30KDIGG Band NON-REACTIVE; 39KDIGG Band NON-REACTIVE; 39KDIGM Band NON-REACTIVE; 41KDIGG Band REACTIVE; 41KDIGM Band NON-REACTIVE; 45KDIGG Band NON-REACTIVE; 58KDIGG Band NON-REACTIVE; 66KDIGG Band NON-REACTIVE; 93KDIGG Band REACTIVE; Lyme Antibodies, WB IgG NEGATIVE (NEGATIVE); Lyme Antibodies, WB IgM NEGATIVE (NEGATIVE)
== END 2021-04-30 16:06 | disposition home or self-care (01) | DRG 866 ==
LOC: 3N 18:56 → ED 18:56 → SUATTDRO 04-28 01:03 → 3N 04-28 02:14